=== PATIENT | male | born 1950 | race Caucasian/White ===

== ENCOUNTER 2020-12-22 10:52 | Emergency (ER) | payer OTHER, SELFPAY ==
--- NOTE | ~2020-12-22 | NM_ITS ---
EXAMINATION: NM LUNG IMAGE PERFUSION CLINICAL INDICATION: Shortness of breath. Elevated d-dimer. Question PE. Positive for COVID 19 COMPARISON: Chest x-ray 12/22/2020 PROCEDURE: Ventilation images were not obtained because the patient is COVID positive. Following the intravenous administration of 4.0 millicuries technetium 99m MAA, images of the chest were again obtained in multiple projections using a gamma scintiphoto camera. PERFUSION IMAGES: There is a small perfusion defect of the superior segment of the right lower lobe. Otherwise homogeneous perfusion. NM/NM pul perfusion IMPRESSION: Low probability of pulmonary embolism.
--- NOTE | ~2020-12-22 | CT_ITS ---
CT head/brain wo con CLINICAL INFORMATION: Reason for Exam pt c dizziness, cough, sob abd pain c gi bleed COMPARISON: No prior CT scan available for comparison. TECHNIQUE: Department standard protocol. This CT examination was performed using dose optimization techniques as appropriate, variously including the following: *Automated exposure control *Adjustment of mA and/or kV according to patient size (this includes techniques or standardized protocols for targeted exams where dose is matched to indication/reason for exam; i.e. extremities or head) *Use of iterative reconstruction technique DLP: 791 mGy-cm FINDINGS: CEREBRAL HEMISPHERES: There is no evidence of intra-axial or extra-axial mass, hemorrhage or acute infarct. BRAIN PARENCHYMA: Normal krishnamurthy-white matter differentiation. SUBDURAL SPACE: No bleed. BASAL GANGLIA AND PINEAL GLAND: Unremarkable VENTRICLES: Symmetric and normal in size. CEREBELLUM AND BRAINSTEM: No space-occupying mass, hemorrhage or acute infarct. CEREBELLOPONTINE ANGLES: No lesion found. ORBITS: No intraorbital mass. VESSELS: Unremarkable SKULL BASE: Unremarkable INCLUDED SINUSES AT SKULL BASE: There is retention cyst or fluid in the right maxillary sinus. SKULL AND SKIN: No fracture or bone lesion found. CT/CT head/brain wo con IMPRESSION: No CT evidence of intracranial space-occupying mass, bleed or infarct. Likely a retention cyst right maxillary sinus.
--- NOTE | ~2020-12-22 | XR_ITS ---
EXAMINATION: XR CHEST CLINICAL INFORMATION: Shortness of breath, COVID positive. COMPARISON: None TECHNIQUE: Frontal view of the chest was obtained. FINDINGS: No significant abnormality is noted involving the heart, lungs, mediastinum, bony thorax or soft tissues. XR/XR chest 1V IMPRESSION: No acute cardiopulmonary process.
--- NOTE | ~2020-12-22 | CT_ITS ---
EXAMINATION: CT ABDOMEN AND PELVIS WITHOUT CONTRAST CLINICAL INFORMATION: Left lower quadrant abdominal pain with bloody stools COMPARISON: CT of the abdomen 01/17/2018 ultrasound of the kidneys 08/01/2018 TECHNIQUE: Multidetector volumetric imaging was performed from the superior aspect of the liver through the pubic symphysis. Sagittal and coronal reformatted images were obtained on the technologist's workstation. This CT examination was performed using dose optimization techniques as appropriate, variously including the following: *Automated exposure control *Adjustment of mA and/or kV according to patient size (this includes techniques or standardized protocols for targeted exams where dose is matched to indication/reason for exam; i.e. extremities or head) *Use of iterative reconstruction technique DLP: 1388 mGy-cm FINDINGS: LUNG BASES: There are minimal scattered groundglass opacities in the right lower lobe. LIVER, GALLBLADDER, AND BILIARY TREE: The liver is normal in size, shape, and attenuation. No focal hepatic lesion or biliary ductal dilatation is present. The gallbladder is unremarkable with no evidence of radiopaque gallstones, gallbladder wall thickening, or obvious pericholecystic inflammatory changes. PANCREAS: There are chunky calcifications in the pancreatic head and smaller calcifications in the body and tail, likely sequela from chronic pancreatitis. SPLEEN: Unremarkable. ADRENAL GLANDS: Unremarkable. KIDNEYS AND URETERS: The kidneys are lobulated. There are several exophytic low-density lesions, likely charter representative of cysts. The largest on the right measures 5.5 cm. The largest on the left measures 3.8 cm. No hydronephrosis. No renal calculi. BLADDER: Unremarkable. GASTROINTESTINAL TRACT: The stomach and small bowel are not dilated. There is diverticulosis of the descending and sigmoid colon without evidence of diverticulitis. There is liquid stool within the colon with internal air-fluid levels. No focal area of increased density to suggest an area of active bleeding, however evaluation is limited due to lack of IV contrast. Normal appendix. No pericolonic inflammatory changes. ABDOMINAL WALL: No significant hernia is appreciated. LYMPH NODES: Normal. VASCULAR: Normal caliber of the abdominal aorta. Scattered atheromatous calcifications. PELVIC VISCERA: Mild prominence of the prostate gland with mass effect at the bladder base. OSSEOUS STRUCTURES: No acute osseous or suspicious abnormality. Multilevel degenerative changes of the lumbar spine. CT/CT abdomen pelvis wo con IMPRESSION: Diverticulosis of the descending and sigmoid colon without evidence of diverticulitis. Liquid stool within the colon. No pericolonic inflammatory change. Large bilateral renal cysts, overall similar in appearance. Calcifications within the pancreas, likely charter representative of sequela from chronic pancreatitis.
[2020-12-22 11:02] VITALS: BP 92/71; PULSE 133; RESP 20; TEMP 36.7; O2SAT 96; BMI 28.9
--- NOTE | 2020-12-22 11:14 | ECG_ITS ---
Test Reason : DIZZINESS Blood Pressure : / mmHG Vent. Rate : 091 BPM Atrial Rate : 046 BPM P-R Int : 000 ms QRS Dur : 074 ms QT Int : 356 ms P-R-T Axes : 000 -20 -09 degrees QTc Int : 437 ms Atrial fibrillation Abnormal ECG When compared with ECG of 07-OCT-2014 14:41, Atrial fibrillation has replaced Sinus rhythm Nonspecific T wave abnormality, worse in Inferior leads Nonspecific T wave abnormality now evident in Lateral leads Referred By: Madelaine Thomson Electronically Signed By:ODESSA DAVIS
--- NOTE | 2020-12-22 11:32 | ED.GENADULT ---
HPI - General Adult General Chief complaint: General Medical Stated complaint: ABD PAIN SORE THROAT Time Seen by Provider: 12/22/20 11:13 Source: patient Mode of arrival: ambulatory Limitations: no limitations Related Data Allergies Allergy/AdvReac Type Severity Reaction Status Date / Time aspirin [ASA] Allergy Severe CANNOT USE Unverified 08/01/20 18:48 DUE TO CROHNS Penicillins [PENICILLINS] Allergy Intermediate VOMITING Unverified 08/01/20 18:48 [facility] Past Medical History Medical History (Updated 12/22/20 @ 11:31 by PHILLIP Taveras) CKD (chronic kidney disease) Colitis Diabetes Physical Exam Vital Signs: Vital Signs: Last Vital Signs Temp 98.1 F 12/22/20 11:02 Pulse 133 H 12/22/20 11:02 Resp 20 12/22/20 11:02 BP 92/71 12/22/20 11:02 Pulse Ox 96 12/22/20 11:02 Body Mass Index 28.9
--- NOTE | 2020-12-22 11:39 | ED.ABDPAIN ---
HPI - Abdominal Pain General Chief Complaint: General Medical <PHILLIP Taveras Last Filed: 12/22/20 18:49> Stated Complaint: ABD PAIN SORE THROAT <PHILLIP Taveras Last Filed: 12/22/20 18:49> Time Seen by Provider: 12/22/20 11:13 <PHILLIP Taveras Last Filed: 12/22/20 18:49> Source: patient <PHILLIP Taveras Last Filed: 12/22/20 18:49> Mode of arrival: ambulatory <PHILLIP Taveras Last Filed: 12/22/20 18:49> Limitations: no limitations <PHILLIP Taveras Last Filed: 12/22/20 18:49> History of Present Illness HPI narrative: 70yoM c PMHx c c/o CAD, DM, HTN, HLD, CKD, Anemia, BPH and sleep apnea presenting to the ED with multiple complaints which include chills, body aches, dizziness when he stands up, dry cough, shortness of breath, left lower quadrant abdominal pain, dark stools which progressed into bright red stools which started a week ago although worse since last night. Reports that he had a telehealth call with his PCP and told him a couple of his symptoms and he was placed on omeprazole, Flagyl and Cipro and initially he was improving until last night. Denies any headaches, changes in vision, nausea/vomiting, jaw pain, paresthesias, dyspnea on exertion, orthopnea, chest pain, back pain, constipation, diarrhea or any other symptoms complaints or concerns at this time. Patient denies being on any blood thinners. <PHILLIP Taveras Last Filed: 12/22/20 18:49> MD elicited complaint: abdominal pain <PHILLIP Taveras Last Filed: 12/22/20 18:49> Onset (ago): day(s) (One week worse since last night) <PHILLIP Taveras Last Filed: 12/22/20 18:49> Pain Consistency: constant <PHILLIP Taveras Last Filed: 12/22/20 18:49> Location: [facility] <PHILLIP Taveras Last Filed: 12/22/20 18:49> Severity: moderate <PHILLIP Taveras Last Filed: 12/22/20 18:49> Quality: cramping <PHILLIP Taveras Last Filed: 12/22/20 18:49> Radiation: none <PHILLIP Taveras Last Filed: 12/22/20 18:49> Migration to: no migration <PHILLIP Taveras Last Filed: 12/22/20 18:49> Exacerbating factors: nothing <PHILLIP Taveras Last Filed: 12/22/20 18:49> Relieving factors: nothing <PHILLIP Taveras Last Filed: 12/22/20 18:49> Associated symptoms: chills, hematochezia and melena <PHILLIP Taveras Last Filed: 12/22/20 18:49> Related Data Home Medications: Home Medications Medication Instructions Recorded Confirmed amlodipine tab PO 12/22/20 azathioprine 3 tab PO DAILY 12/22/20 12/22/20 dulaglutide [Trulicity] 1 mg SUBCUT QWEEK 12/22/20 12/22/20 gabapentin 1 cap PO BEDTIME 12/22/20 12/22/20 hydrochlorothiazide 1 tab PO DAILY 12/22/20 12/22/20 insulin glargine [Basaglar KwikPen SUBCUT 12/22/20 U-100 Insulin] lisinopril 1 tab PO DAILY 12/22/20 12/22/20 omeprazole cap PO 12/22/20 Previous Rx's Medication Instructions Recorded apixaban [Eliquis] 2.5 mg PO BID #60 tab 12/23/20 dexamethasone [Decadron] 6 mg PO DAILY #7 tab 12/23/20 <PHILLIP Taveras Last Filed: 12/22/20 18:49> Allergies/Adverse Reactions: Allergies Allergy/AdvReac Type Severity Reaction Status Date / Time aspirin [ASA] Allergy Severe CANNOT USE Unverified 08/01/20 18:48 DUE TO CROHNS Penicillins [PENICILLINS] Allergy Intermediate VOMITING Unverified 08/01/20 18:48 <PHILLIP Taveras Last Filed: 12/22/20 18:49> Review of Systems Review of Systems Constitutional : + Chills, + Malaise, + Fatigue, No Night Sweats, No Fever ENT/Mouth : + Nasal congestion/sinus pain/rhinorrhea, No Ear Pain, No sore throat Eyes: No Eye Pain, No Swelling, No Redness, No Foreign Body, No Discharge, No Vision Changes Cardiovascular : + SOB, No Chest Pain, No Dyspnea on Exertion, No Orthopnea, No Palpitations Respiratory : + Cough, No Sputum, No Wheezing, No Dyspnea Gastrointestinal : + Abdominal pain, + Hematochezia, + Melena, No Nausea, No Vomiting, No Diarrhea, No Constipation Genitourinary : No Dysuria, No Urinary Frequency, No Urinary Incontinence, No Urgency, No Flank Pain Musculoskeletal : + Myalgias, No joint pain Skin : No lacerations Neuro : + Dizziness, No Focal weakness, No Numbness, No Paresthesias, No Loss of Consciousness, No Headache <PHILLIP Taveras - Last Filed: 12/22/20 18:49> Yes all other systems are reviewed and are negative <PHILLIP Taveras - Last Filed: 12/22/20 18:49> Physical Exam Vital Signs: Vital Signs: Last Vital Signs Temp 97.9 F 12/22/20 23:38 Pulse 71 12/22/20 23:38 Resp 16 12/22/20 23:38 BP 136/65 12/22/20 23:38 Pulse Ox 100 12/22/20 23:38 Body Mass Index 28.9 Vital signs have been reviewed as normal and appeared to be correct. Blood pressure hypertensive. Heart rate tachycardic. Respiration rate normal. Temperature normal. Oxygen saturation normal. <PHILLIP Taveras - Last Filed: 12/22/20 18:49> Vital Signs: Last Vital Signs Temp 97.9 F 12/22/20 23:38 Pulse 71 12/22/20 23:38 Resp 16 12/22/20 23:38 BP 136/65 12/22/20 23:38 Pulse Ox 100 12/22/20 23:38 Body Mass Index 28.9 <Jose Antonio Jade MD - Last Filed: 12/23/20 01:54> Appearance: Alert. Oriented X3. No acute distress. Head: Normal external exam. Normocephalic. Atraumatic. Able to rotate head bilaterally. Eyes: PERRLA. EOMI. No nystagmus noted. Conjunctiva and sclera normal. Eyelids normal. Corneal reflex normal. ENT: EAC normal. TM's Normal. Hearing normal. Pharynx normal. Uvula midline. tongue midline. Moist mucous membranes. No trismus noted. No drooling noted. No muffled voice noted. No nystagmus noted. Neck: Normal inspection. Neck supple. FROM. No adenopathy. Trachea midline. Thyroid Normal. No meningeal signs. No neck mass noted. CVS: Normal heart rate and rhythm. Heart sound normal. No murmurs noted. Pulses normal throughout. Respiratory: No respiratory distress. Painless inspiration. Breath sounds normal. No wheezes/rales/rhonchi noted. Chest nontender. No accessory muscle usage noted or decreased air movement noted. Abdomen: Soft and tenderness to palpation to left lower quadrant with guarding. Nondistended. No rigidity. Bowel sounds normal in all 4 quadrants. No distention noted. No organomegaly noted. No visible injury noted. No rebound tenderness. Negative Rovsing sign. Negative obturator's sign. Negative psoas sign. Negative Cummings sign. Back: No CVA tenderness. Full range of motion noted. Skin: Skin warm and dry. Normal skin color. Normal skin turgor. No rashes/lesions/lacerations noted. Extremities: No lower extremity edema. Extremities exhibit normal range of motion. Extremities nontender. Able to shrug shoulders bilaterally and keep up against resistance. Neuro: Oriented X 3. No motor deficit. No sensory deficit. Reflexes normal. Moving all extremities. No focal motor deficits. Cranial nerves II-XI intact bilaterally. Facial strength normal. Normal cognition. Speech normal. Gait normal. Strength 5/5 throughout. No pronator drift. No tremor noted. No fasciculations noted. No rigidity noted. Muscle tone normal throughout. No asterixis noted. [id number] test normal. Hand drop from overhead Misses face. NIHSS score 0. <PHILLIP Taveras - Last Filed: 12/22/20 18:49> Course Course Course Narrative: 11:15pm 70yoM c PMHx c c/o CAD, DM, HTN, HLD, CKD, Anemia, BPH and sleep apnea presenting to the ED with multiple complaints which include chills, body aches, dizziness when he stands up, dry cough, shortness of breath, left lower quadrant abdominal pain, dark stools which progressed into bright red stools which started a week ago although worse since last night. - on exam patient is alert and oriented x3. Not in any acute distress. Patient is noted to be hypertensive and tachycardic all other vitals are within normal limits. No focal neuro deficits noted. NIH SS score 0. Patient with tenderness to palpation to left lower quadrant with guarding. - Concern for CVA vs ACS vs COVID-19 vs PNA vs diverticulitis vs GI Bleed vs orthostatic vs electrolyte abnormality Plan: Labs, CXR, EKG, CT scan of brain, CT scan of chest for PE, CT scan of abd/pelvis c IV contrast, UA, SARS/FLU/RSV swab, blood cultures, lactic acid. Provide a L of IV fluids then re-evaluate. <PHILLIP Taveras - Last Filed: 12/22/20 18:49> Reevaluation(s) Reevaluation #1: - patient with mild anemia unsure if this is the patient's baseline H&H 10.9/31.8 - D-dimer 317 - sodium 133 - BUN/creatinine 60/3.45 - random glucose 236 - ferritin 86 - CRP 2.87 - troponin 18.0 - patient positive for COVID - UA within normal limits no evidence of UTI - stool occult negative - awaiting CT scan of brain, CT scan of abdomen and pelvis and due to patient's increased renal function unable to get a CTA of chest for PE therefore a V/Q scan will be ordered at this time for further evaluation of possible PE, repeat troponin at this time. - will re-evaluate after CT scan of brain/CT scan of abdomen and pelvis/V/Q scan of chest for PE and repeat troponin - attempting to get records from [facility] for the patient's baseline creatinine. <PHILLIP Taveras - Last Filed: 12/22/20 18:49> Patient feeling much better now ambulating with pulse ox of 100% heart rate 83 beats per minute normal sinus rhythm at this time. Patient discharged patient home on Eliquis advised to follow-up with graphics edit technician <Jose Antonio Jade MD - Last Filed: 12/23/20 01:54> Time: 14:41 <PHILLIP Taveras - Last Filed: 12/22/20 18:49> 01:54 <Jose Antonio Jade MD - Last Filed: 12/23/20 01:54> Reevaluation #2: - CXR WNL no acute processes noted. - CT scan of brain WNL no acute processes noted. - CT scan of abdomen and pelvis revealed diverticulosis no evidence of acute diverticulitis, large bilateral renal cysts, calcifications within the pancreas which revealed chronic pancreatitis otherwise no other acute processes noted. - awaiting repeat troponin and V/Q scan and records from [facility] for the patient's baseline creatinine/BUN <PHILLIP Taveras - Last Filed: 12/22/20 18:49> Time: 15:20 <PHILLIP Taveras - Last Filed: 12/22/20 18:49> Reevaluation #3: - [facility] never sent us any records therefore I got records from [facility] and patient was actually in the outpatient office on 12/17/2020 in the patient's H&H was 11.2/33.6 and the patient's BUN and creatinine was 46/3.6 therefore similar compared to 01/05 - awaiting repeat troponin and V/Q scan. <PHILLIP Taveras - Last Filed: 12/22/20 18:49> Time: 15:55 <PHILLIP Taveras - Last Filed: 12/22/20 18:49> Additional Reevaluation(s): 17:40pm - I was just given the patient's EKG at this time although it was ordered at 11:30 when the patient was seen by me and it appears that the patient is in atrial fibrillation with ventricular rate of 91 no acute ischemic changes noted. I reviewed patient's [facility] records and he had EKG on 04/10/2020 which was sinus rhythm therefore this is new onset of atrial fibrillation. - patient's [id number] is 2 - V/Q scan reports low probability for pulmonary embolism - will plan to admit and possibly start the patient on anticoagulation. Patient understands agrees the plan. Dr. Stafford agrees to admit patient at this time. Patient understands agrees the plan. <PHILLIP Taveras - Last Filed: 12/22/20 18:49> MDM - Abdominal Pain Medical Records Attestation: I reviewed the patient's medical records. <PHILLIP Taveras - Last Filed: 12/22/20 18:49> Lab Data Attestation: I reviewed the patient's lab results. <PHILLIP Taveras - Last Filed: 12/22/20 18:49> Result diagrams: : 12/22/20 11:39 12/22/20 11:39 <PHILLIP Taveras - Last Filed: 12/22/20 18:49> Labs: Lab Results 12/22/20 12/22/20 12/22/20 Range/Units 11:39 11:39 11:39 WBC 4.8 (4.8-10.8) X10*3/uL RBC 3.40 L (4.60-5.80) X10*6/uL Hgb 10.9 L (14.0-18.0) g/dl Hct 31.8 L (42-52) % MCV 93.5 (80-98) fL MCH 32.1 (27.0-33.0) pg MCHC 34.3 (31.0-36.0) g/dl RDW 14.1 (11.0-16.0) % Plt Count 244 (160-400) X10*3/uL MPV 10.8 (9.4-12.4) fL Immature Gran % (Auto) 0.4 (0.0-0.4) % Neut % (Auto) 77.8 H (45-73) % Lymph % (Auto) 10.5 L (20-40) % Dixon % (Auto) 8.8 (2-11) % Eos % (Auto) 2.3 (0-4) % Baso % (Auto) 0.2 (0-2) % Lymph # (Auto) 0.5 L (1.2-4.9) X10*3/uL Dixon # (Auto) 0.4 (0.1-1.2) X10*3/uL Eos # (Auto) 0.1 (0.0-0.4) X10*3/uL Baso # (Auto) 0.0 (0.0-0.2) X10*3/uL Abs Immat Gran (auto) 0.02 (0.00-0.03) X10*3/uL Absolute Neuts (auto) 3.7 (2.0-8.3) X10*3/uL Absolute Nucleated RBC 0.000 (0.0-0.012) X10*3/uL Nucleated RBC % (auto) 0.0 (0.0-0.2) /100WBC Smear Tech's Comments VERIFIED PT (10.8-13.0) SEC INR (0.9-1.1) APTT (24.1-38.0) SEC D-Dimer NG/ML Sodium 133 L (135-145) mmol/L Potassium 4.3 (3.3-5.1) mmol/L Chloride 101 (96-108) mmol/L Carbon Dioxide 19 L (22-29) mmol/L Anion Gap 17 (12-20) BUN 60 H (9-16) mg/dL Creatinine 3.45 H (0.5-1.4) mg/dL Estim Creat Clear Calc 23.0 Estimated GFR 18 POC Glucose (60-115) mg/dL Random Glucose 236 H (60-115) mg/dL Lactic Acid 1.3 (0.5-2.0) mmol/L Calcium 8.5 (8.4-10.2) mg/dL Magnesium 2.2 (1.6-2.6) mg/dL Ferritin (20-250) ng/mL Total Bilirubin 0.3 (0.0-1.0) mg/dL Direct Bilirubin 0.2 (0.0-0.5) mg/dL AST 23 (5-37) U/L ALT 18 (0-40) U/L Alkaline Phosphatase 81 (39-117) U/L Lactate Dehydrogenase 179 (118-273) U/L Troponin I High Sens (<3.5-35.0) ng/L C-Reactive Protein (< or = 0.50) mg/dL B-Natriuretic Peptide (<100) pg/mL Total Protein 7.9 (6.5-8.0) g/dL Albumin 4.5 (3.5-5.0) g/dL Lipase (8-78) U/L Procalcitonin ng/mL Urine Color Urine Appearance Urine pH (5.0-8.0) Ur Specific [place] (1.005-1.025) Urine Protein (NEG-TRACE) MG/DL Urine Glucose (UA) (NEG) MG/DL Urine Ketones (NEG) MG/DL Urine Blood (NEG) Urine Nitrite (NEG) Ur Leukocyte Esterase (NEG) Urine RBC (0) /HPF Urine WBC (0-4) /HPF Ur Squamous Epith Cells /LPF Urine Bacteria /LPF Stool Occult Blood (NEG) Coronavirus (PCR) (Negative) Influenza Type A (PCR) (Negative) Influenza Type B (PCR) (Negative) RSV RNA Qual (PCR) (Negative) 12/22/20 12/22/20 12/22/20 Range/Units 11:39 11:39 11:39 WBC (4.8-10.8) X10*3/uL RBC (4.60-5.80) X10*6/uL Hgb (14.0-18.0) g/dl Hct (42-52) % MCV (80-98) fL MCH (27.0-33.0) pg MCHC (31.0-36.0) g/dl RDW (11.0-16.0) % Plt Count (160-400) X10*3/uL MPV (9.4-12.4) fL Immature Gran % (Auto) (0.0-0.4) % Neut % (Auto) (45-73) % Lymph % (Auto) (20-40) % Dixon % (Auto) (2-11) % Eos % (Auto) (0-4) % Baso % (Auto) (0-2) % Lymph # (Auto) (1.2-4.9) X10*3/uL Dixon # (Auto) (0.1-1.2) X10*3/uL Eos # (Auto) (0.0-0.4) X10*3/uL Baso # (Auto) (0.0-0.2) X10*3/uL Abs Immat Gran (auto) (0.00-0.03) X10*3/uL Absolute Neuts (auto) (2.0-8.3) X10*3/uL Absolute Nucleated RBC (0.0-0.012) X10*3/uL Nucleated RBC % (auto) (0.0-0.2) /100WBC Smear Tech's Comments PT (10.8-13.0) SEC INR (0.9-1.1) APTT (24.1-38.0) SEC D-Dimer NG/ML Sodium (135-145) mmol/L Potassium (3.3-5.1) mmol/L Chloride (96-108) mmol/L Carbon Dioxide (22-29) mmol/L Anion Gap (12-20) BUN (9-16) mg/dL Creatinine (0.5-1.4) mg/dL Estim Creat Clear Calc Estimated GFR POC Glucose (60-115) mg/dL Random Glucose (60-115) mg/dL Lactic Acid (0.5-2.0) mmol/L Calcium (8.4-10.2) mg/dL Magnesium (1.6-2.6) mg/dL Ferritin 886 H (20-250) ng/mL Total Bilirubin (0.0-1.0) mg/dL Direct Bilirubin (0.0-0.5) mg/dL AST (5-37) U/L ALT (0-40) U/L Alkaline Phosphatase (39-117) U/L Lactate Dehydrogenase (118-273) U/L Troponin I High Sens 18.0 (<3.5-35.0) ng/L C-Reactive Protein 2.87 H (< or = 0.50) mg/dL B-Natriuretic Peptide 19 (<100) pg/mL Total Protein (6.5-8.0) g/dL Albumin (3.5-5.0) g/dL Lipase (8-78) U/L Procalcitonin 0.34 ng/mL Urine Color Urine Appearance Urine pH (5.0-8.0) Ur Specific [place] (1.005-1.025) Urine Protein (NEG-TRACE) MG/DL Urine Glucose (UA) (NEG) MG/DL Urine Ketones (NEG) MG/DL Urine Blood (NEG) Urine Nitrite (NEG) Ur Leukocyte Esterase (NEG) Urine RBC (0) /HPF Urine WBC (0-4) /HPF Ur Squamous Epith Cells /LPF Urine Bacteria /LPF Stool Occult Blood (NEG) Coronavirus (PCR) (Negative) Influenza Type A (PCR) (Negative) Influenza Type B (PCR) (Negative) RSV RNA Qual (PCR) (Negative) 12/22/20 12/22/20 12/22/20 Range/Units 11:39 13:41 13:41 WBC (4.8-10.8) X10*3/uL RBC (4.60-5.80) X10*6/uL Hgb (14.0-18.0) g/dl Hct (42-52) % MCV (80-98) fL MCH (27.0-33.0) pg MCHC (31.0-36.0) g/dl RDW (11.0-16.0) % Plt Count (160-400) X10*3/uL MPV (9.4-12.4) fL Immature Gran % (Auto) (0.0-0.4) % Neut % (Auto) (45-73) % Lymph % (Auto) (20-40) % Dixon % (Auto) (2-11) % Eos % (Auto) (0-4) % Baso % (Auto) (0-2) % Lymph # (Auto) (1.2-4.9) X10*3/uL Dixon # (Auto) (0.1-1.2) X10*3/uL Eos # (Auto) (0.0-0.4) X10*3/uL Baso # (Auto) (0.0-0.2) X10*3/uL Abs Immat Gran (auto) (0.00-0.03) X10*3/uL Absolute Neuts (auto) (2.0-8.3) X10*3/uL Absolute Nucleated RBC (0.0-0.012) X10*3/uL Nucleated RBC % (auto) (0.0-0.2) /100WBC Smear Tech's Comments PT (10.8-13.0) SEC INR (0.9-1.1) APTT (24.1-38.0) SEC D-Dimer NG/ML Sodium (135-145) mmol/L Potassium (3.3-5.1) mmol/L Chloride (96-108) mmol/L Carbon Dioxide (22-29) mmol/L Anion Gap (12-20) BUN (9-16) mg/dL Creatinine (0.5-1.4) mg/dL Estim Creat Clear Calc Estimated GFR POC Glucose (60-115) mg/dL Random Glucose (60-115) mg/dL Lactic Acid (0.5-2.0) mmol/L Calcium (8.4-10.2) mg/dL Magnesium (1.6-2.6) mg/dL Ferritin (20-250) ng/mL Total Bilirubin (0.0-1.0) mg/dL Direct Bilirubin (0.0-0.5) mg/dL AST (5-37) U/L ALT (0-40) U/L Alkaline Phosphatase (39-117) U/L Lactate Dehydrogenase (118-273) U/L Troponin I High Sens (<3.5-35.0) ng/L C-Reactive Protein (< or = 0.50) mg/dL B-Natriuretic Peptide (<100) pg/mL Total Protein (6.5-8.0) g/dL Albumin (3.5-5.0) g/dL Lipase 58 (8-78) U/L Procalcitonin ng/mL Urine Color YELLOW Urine Appearance CLEAR Urine pH 6.0 (5.0-8.0) Ur Specific [place] 1.025 (1.005-1.025) Urine Protein 2+ H (NEG-TRACE) MG/DL Urine Glucose (UA) NEG (NEG) MG/DL Urine Ketones 5 (NEG) MG/DL Urine Blood 1+ H (NEG) Urine Nitrite NEG (NEG) Ur Leukocyte Esterase NEG (NEG) Urine RBC 1-4 (0) /HPF Urine WBC 0-2 (0-4) /HPF Ur Squamous Epith Cells NONE /LPF Urine Bacteria NONE /LPF Stool Occult Blood NEG (NEG) Coronavirus (PCR) (Negative) Influenza Type A (PCR) (Negative) Influenza Type B (PCR) (Negative) RSV RNA Qual (PCR) (Negative) 12/22/20 12/22/20 12/22/20 Range/Units 14:17 16:03 17:31 WBC (4.8-10.8) X10*3/uL RBC (4.60-5.80) X10*6/uL Hgb (14.0-18.0) g/dl Hct (42-52) % MCV (80-98) fL MCH (27.0-33.0) pg MCHC (31.0-36.0) g/dl RDW (11.0-16.0) % Plt Count (160-400) X10*3/uL MPV (9.4-12.4) fL Immature Gran % (Auto) (0.0-0.4) % Neut % (Auto) (45-73) % Lymph % (Auto) (20-40) % Dixon % (Auto) (2-11) % Eos % (Auto) (0-4) % Baso % (Auto) (0-2) % Lymph # (Auto) (1.2-4.9) X10*3/uL Dixon # (Auto) (0.1-1.2) X10*3/uL Eos # (Auto) (0.0-0.4) X10*3/uL Baso # (Auto) (0.0-0.2) X10*3/uL Abs Immat Gran (auto) (0.00-0.03) X10*3/uL Absolute Neuts (auto) (2.0-8.3) X10*3/uL Absolute Nucleated RBC (0.0-0.012) X10*3/uL Nucleated RBC % (auto) (0.0-0.2) /100WBC Smear Tech's Comments PT 13.9 H (10.8-13.0) SEC INR 1.2 H (0.9-1.1) APTT 35.1 (24.1-38.0) SEC D-Dimer 317 NG/ML Sodium (135-145) mmol/L Potassium (3.3-5.1) mmol/L Chloride (96-108) mmol/L Carbon Dioxide (22-29) mmol/L Anion Gap (12-20) BUN (9-16) mg/dL Creatinine (0.5-1.4) mg/dL Estim Creat Clear Calc Estimated GFR POC Glucose 173 H (60-115) mg/dL Random Glucose (60-115) mg/dL Lactic Acid (0.5-2.0) mmol/L Calcium (8.4-10.2) mg/dL Magnesium (1.6-2.6) mg/dL Ferritin (20-250) ng/mL Total Bilirubin (0.0-1.0) mg/dL Direct Bilirubin (0.0-0.5) mg/dL AST (5-37) U/L ALT (0-40) U/L Alkaline Phosphatase (39-117) U/L Lactate Dehydrogenase (118-273) U/L Troponin I High Sens 23.3 (<3.5-35.0) ng/L C-Reactive Protein (< or = 0.50) mg/dL B-Natriuretic Peptide (<100) pg/mL Total Protein (6.5-8.0) g/dL Albumin (3.5-5.0) g/dL Lipase (8-78) U/L Procalcitonin ng/mL Urine Color Urine Appearance Urine pH (5.0-8.0) Ur Specific [place] (1.005-1.025) Urine Protein (NEG-TRACE) MG/DL Urine Glucose (UA) (NEG) MG/DL Urine Ketones (NEG) MG/DL Urine Blood (NEG) Urine Nitrite (NEG) Ur Leukocyte Esterase (NEG) Urine RBC (0) /HPF Urine WBC (0-4) /HPF Ur Squamous Epith Cells /LPF Urine Bacteria /LPF Stool Occult Blood (NEG) Coronavirus (PCR) (Negative) Influenza Type A (PCR) (Negative) Influenza Type B (PCR) (Negative) RSV RNA Qual (PCR) (Negative) 12/22/20 Range/Units Unknown WBC (4.8-10.8) X10*3/uL RBC (4.60-5.80) X10*6/uL Hgb (14.0-18.0) g/dl Hct (42-52) % MCV (80-98) fL MCH (27.0-33.0) pg MCHC (31.0-36.0) g/dl RDW (11.0-16.0) % Plt Count (160-400) X10*3/uL MPV (9.4-12.4) fL Immature Gran % (Auto) (0.0-0.4) % Neut % (Auto) (45-73) % Lymph % (Auto) (20-40) % Dixon % (Auto) (2-11) % Eos % (Auto) (0-4) % Baso % (Auto) (0-2) % Lymph # (Auto) (1.2-4.9) X10*3/uL Dixon # (Auto) (0.1-1.2) X10*3/uL Eos # (Auto) (0.0-0.4) X10*3/uL Baso # (Auto) (0.0-0.2) X10*3/uL Abs Immat Gran (auto) (0.00-0.03) X10*3/uL Absolute Neuts (auto) (2.0-8.3) X10*3/uL Absolute Nucleated RBC (0.0-0.012) X10*3/uL Nucleated RBC % (auto) (0.0-0.2) /100WBC Smear Tech's Comments PT (10.8-13.0) SEC INR (0.9-1.1) APTT (24.1-38.0) SEC D-Dimer NG/ML Sodium (135-145) mmol/L Potassium (3.3-5.1) mmol/L Chloride (96-108) mmol/L Carbon Dioxide (22-29) mmol/L Anion Gap (12-20) BUN (9-16) mg/dL Creatinine (0.5-1.4) mg/dL Estim Creat Clear Calc Estimated GFR POC Glucose (60-115) mg/dL Random Glucose (60-115) mg/dL Lactic Acid (0.5-2.0) mmol/L Calcium (8.4-10.2) mg/dL Magnesium (1.6-2.6) mg/dL Ferritin (20-250) ng/mL Total Bilirubin (0.0-1.0) mg/dL Direct Bilirubin (0.0-0.5) mg/dL AST (5-37) U/L ALT (0-40) U/L Alkaline Phosphatase (39-117) U/L Lactate Dehydrogenase (118-273) U/L Troponin I High Sens (<3.5-35.0) ng/L C-Reactive Protein (< or = 0.50) mg/dL B-Natriuretic Peptide (<100) pg/mL Total Protein (6.5-8.0) g/dL Albumin (3.5-5.0) g/dL Lipase (8-78) U/L Procalcitonin ng/mL Urine Color Urine Appearance Urine pH (5.0-8.0) Ur Specific [place] (1.005-1.025) Urine Protein (NEG-TRACE) MG/DL Urine Glucose (UA) (NEG) MG/DL Urine Ketones (NEG) MG/DL Urine Blood (NEG) Urine Nitrite (NEG) Ur Leukocyte Esterase (NEG) Urine RBC (0) /HPF Urine WBC (0-4) /HPF Ur Squamous Epith Cells /LPF Urine Bacteria /LPF Stool Occult Blood (NEG) Coronavirus (PCR) POSITIVE A (Negative) Influenza Type A (PCR) NEGATIVE (Negative) Influenza Type B (PCR) NEGATIVE (Negative) RSV RNA Qual (PCR) NEGATIVE (Negative) <PHILLIP Taveras - Last Filed: 12/22/20 18:49> Lab Results 12/22/20 12/22/20 12/22/20 Range/Units 11:39 11:39 11:39 WBC 4.8 (4.8-10.8) X10*3/uL RBC 3.40 L (4.60-5.80) X10*6/uL Hgb 10.9 L (14.0-18.0) g/dl Hct 31.8 L (42-52) % MCV 93.5 (80-98) fL MCH 32.1 (27.0-33.0) pg MCHC 34.3 (31.0-36.0) g/dl RDW 14.1 (11.0-16.0) % Plt Count 244 (160-400) X10*3/uL MPV 10.8 (9.4-12.4) fL Immature Gran % (Auto) 0.4 (0.0-0.4) % Neut % (Auto) 77.8 H (45-73) % Lymph % (Auto) 10.5 L (20-40) % Dixon % (Auto) 8.8 (2-11) % Eos % (Auto) 2.3 (0-4) % Baso % (Auto) 0.2 (0-2) % Lymph # (Auto) 0.5 L (1.2-4.9) X10*3/uL Dixon # (Auto) 0.4 (0.1-1.2) X10*3/uL Eos # (Auto) 0.1 (0.0-0.4) X10*3/uL Baso # (Auto) 0.0 (0.0-0.2) X10*3/uL Abs Immat Gran (auto) 0.02 (0.00-0.03) X10*3/uL Absolute Neuts (auto) 3.7 (2.0-8.3) X10*3/uL Absolute Nucleated RBC 0.000 (0.0-0.012) X10*3/uL Nucleated RBC % (auto) 0.0 (0.0-0.2) /100WBC Smear Tech's Comments VERIFIED PT (10.8-13.0) SEC INR (0.9-1.1) APTT (24.1-38.0) SEC D-Dimer NG/ML Sodium 133 L (135-145) mmol/L Potassium 4.3 (3.3-5.1) mmol/L Chloride 101 (96-108) mmol/L Carbon Dioxide 19 L (22-29) mmol/L Anion Gap 17 (12-20) BUN 60 H (9-16) mg/dL Creatinine 3.45 H (0.5-1.4) mg/dL Estim Creat Clear Calc 23.0 Estimated GFR 18 POC Glucose (60-115) mg/dL Random Glucose 236 H (60-115) mg/dL Lactic Acid 1.3 (0.5-2.0) mmol/L Calcium 8.5 (8.4-10.2) mg/dL Magnesium 2.2 (1.6-2.6) mg/dL Ferritin (20-250) ng/mL Total Bilirubin 0.3 (0.0-1.0) mg/dL Direct Bilirubin 0.2 (0.0-0.5) mg/dL AST 23 (5-37) U/L ALT 18 (0-40) U/L Alkaline Phosphatase 81 (39-117) U/L Lactate Dehydrogenase 179 (118-273) U/L Troponin I High Sens (<3.5-35.0) ng/L C-Reactive Protein (< or = 0.50) mg/dL B-Natriuretic Peptide (<100) pg/mL Total Protein 7.9 (6.5-8.0) g/dL Albumin 4.5 (3.5-5.0) g/dL Lipase (8-78) U/L Procalcitonin ng/mL Urine Color Urine Appearance Urine pH (5.0-8.0) Ur Specific [place] (1.005-1.025) Urine Protein (NEG-TRACE) MG/DL Urine Glucose (UA) (NEG) MG/DL Urine Ketones (NEG) MG/DL Urine Blood (NEG) Urine Nitrite (NEG) Ur Leukocyte Esterase (NEG) Urine RBC (0) /HPF Urine WBC (0-4) /HPF Ur Squamous Epith Cells /LPF Urine Bacteria /LPF Stool Occult Blood (NEG) Coronavirus (PCR) (Negative) Influenza Type A (PCR) (Negative) Influenza Type B (PCR) (Negative) RSV RNA Qual (PCR) (Negative) 12/22/20 12/22/20 12/22/20 Range/Units 11:39 11:39 11:39 WBC (4.8-10.8) X10*3/uL RBC (4.60-5.80) X10*6/uL Hgb (14.0-18.0) g/dl Hct (42-52) % MCV (80-98) fL MCH (27.0-33.0) pg MCHC (31.0-36.0) g/dl RDW (11.0-16.0) % Plt Count (160-400) X10*3/uL MPV (9.4-12.4) fL Immature Gran % (Auto) (0.0-0.4) % Neut % (Auto) (45-73) % Lymph % (Auto) (20-40) % Dixon % (Auto) (2-11) % Eos % (Auto) (0-4) % Baso % (Auto) (0-2) % Lymph # (Auto) (1.2-4.9) X10*3/uL Dixon # (Auto) (0.1-1.2) X10*3/uL Eos # (Auto) (0.0-0.4) X10*3/uL Baso # (Auto) (0.0-0.2) X10*3/uL Abs Immat Gran (auto) (0.00-0.03) X10*3/uL Absolute Neuts (auto) (2.0-8.3) X10*3/uL Absolute Nucleated RBC (0.0-0.012) X10*3/uL Nucleated RBC % (auto) (0.0-0.2) /100WBC Smear Tech's Comments PT (10.8-13.0) SEC INR (0.9-1.1) APTT (24.1-38.0) SEC D-Dimer NG/ML Sodium (135-145) mmol/L Potassium (3.3-5.1) mmol/L Chloride (96-108) mmol/L Carbon Dioxide (22-29) mmol/L Anion Gap (12-20) BUN (9-16) mg/dL Creatinine (0.5-1.4) mg/dL Estim Creat Clear Calc Estimated GFR POC Glucose (60-115) mg/dL Random Glucose (60-115) mg/dL Lactic Acid (0.5-2.0) mmol/L Calcium (8.4-10.2) mg/dL Magnesium (1.6-2.6) mg/dL Ferritin 886 H (20-250) ng/mL Total Bilirubin (0.0-1.0) mg/dL Direct Bilirubin (0.0-0.5) mg/dL AST (5-37) U/L ALT (0-40) U/L Alkaline Phosphatase (39-117) U/L Lactate Dehydrogenase (118-273) U/L Troponin I High Sens 18.0 (<3.5-35.0) ng/L C-Reactive Protein 2.87 H (< or = 0.50) mg/dL B-Natriuretic Peptide 19 (<100) pg/mL Total Protein (6.5-8.0) g/dL Albumin (3.5-5.0) g/dL Lipase (8-78) U/L Procalcitonin 0.34 ng/mL Urine Color Urine Appearance Urine pH (5.0-8.0) Ur Specific Holland (1.005-1.025) Urine Protein (NEG-TRACE) MG/DL Urine Glucose (UA) (NEG) MG/DL Urine Ketones (NEG) MG/DL Urine Blood (NEG) Urine Nitrite (NEG) Ur Leukocyte Esterase (NEG) Urine RBC (0) /HPF Urine WBC (0-4) /HPF Ur Squamous Epith Cells /LPF Urine Bacteria /LPF Stool Occult Blood (NEG) Coronavirus (PCR) (Negative) Influenza Type A (PCR) (Negative) Influenza Type B (PCR) (Negative) RSV RNA Qual (PCR) (Negative) 12/22/20 12/22/20 12/22/20 Range/Units 11:39 13:41 13:41 WBC (4.8-10.8) X10*3/uL RBC (4.60-5.80) X10*6/uL Hgb (14.0-18.0) g/dl Hct (42-52) % MCV (80-98) fL MCH (27.0-33.0) pg MCHC (31.0-36.0) g/dl RDW (11.0-16.0) % Plt Count (160-400) X10*3/uL MPV (9.4-12.4) fL Immature Gran % (Auto) (0.0-0.4) % Neut % (Auto) (45-73) % Lymph % (Auto) (20-40) % Dixon % (Auto) (2-11) % Eos % (Auto) (0-4) % Baso % (Auto) (0-2) % Lymph # (Auto) (1.2-4.9) X10*3/uL Dixon # (Auto) (0.1-1.2) X10*3/uL Eos # (Auto) (0.0-0.4) X10*3/uL Baso # (Auto) (0.0-0.2) X10*3/uL Abs Immat Gran (auto) (0.00-0.03) X10*3/uL Absolute Neuts (auto) (2.0-8.3) X10*3/uL Absolute Nucleated RBC (0.0-0.012) X10*3/uL Nucleated RBC % (auto) (0.0-0.2) /100WBC Smear Tech's Comments PT (10.8-13.0) SEC INR (0.9-1.1) APTT (24.1-38.0) SEC D-Dimer NG/ML Sodium (135-145) mmol/L Potassium (3.3-5.1) mmol/L Chloride (96-108) mmol/L Carbon Dioxide (22-29) mmol/L Anion Gap (12-20) BUN (9-16) mg/dL Creatinine (0.5-1.4) mg/dL Estim Creat Clear Calc Estimated GFR POC Glucose (60-115) mg/dL Random Glucose (60-115) mg/dL Lactic Acid (0.5-2.0) mmol/L Calcium (8.4-10.2) mg/dL Magnesium (1.6-2.6) mg/dL Ferritin (20-250) ng/mL Total Bilirubin (0.0-1.0) mg/dL Direct Bilirubin (0.0-0.5) mg/dL AST (5-37) U/L ALT (0-40) U/L Alkaline Phosphatase (39-117) U/L Lactate Dehydrogenase (118-273) U/L Troponin I High Sens (<3.5-35.0) ng/L C-Reactive Protein (< or = 0.50) mg/dL B-Natriuretic Peptide (<100) pg/mL Total Protein (6.5-8.0) g/dL Albumin (3.5-5.0) g/dL Lipase 58 (8-78) U/L Procalcitonin ng/mL Urine Color YELLOW Urine Appearance CLEAR Urine pH 6.0 (5.0-8.0) Ur Specific [place] 1.025 (1.005-1.025) Urine Protein 2+ H (NEG-TRACE) MG/DL Urine Glucose (UA) NEG (NEG) MG/DL Urine Ketones 5 (NEG) MG/DL Urine Blood 1+ H (NEG) Urine Nitrite NEG (NEG) Ur Leukocyte Esterase NEG (NEG) Urine RBC 1-4 (0) /HPF Urine WBC 0-2 (0-4) /HPF Ur Squamous Epith Cells NONE /LPF Urine Bacteria NONE /LPF Stool Occult Blood NEG (NEG) Coronavirus (PCR) (Negative) Influenza Type A (PCR) (Negative) Influenza Type B (PCR) (Negative) RSV RNA Qual (PCR) (Negative) 12/22/20 12/22/20 12/22/20 Range/Units 14:17 16:03 17:31 WBC (4.8-10.8) X10*3/uL RBC (4.60-5.80) X10*6/uL Hgb (14.0-18.0) g/dl Hct (42-52) % MCV (80-98) fL MCH (27.0-33.0) pg MCHC (31.0-36.0) g/dl RDW (11.0-16.0) % Plt Count (160-400) X10*3/uL MPV (9.4-12.4) fL Immature Gran % (Auto) (0.0-0.4) % Neut % (Auto) (45-73) % Lymph % (Auto) (20-40) % Dixon % (Auto) (2-11) % Eos % (Auto) (0-4) % Baso % (Auto) (0-2) % Lymph # (Auto) (1.2-4.9) X10*3/uL Dixon # (Auto) (0.1-1.2) X10*3/uL Eos # (Auto) (0.0-0.4) X10*3/uL Baso # (Auto) (0.0-0.2) X10*3/uL Abs Immat Gran (auto) (0.00-0.03) X10*3/uL Absolute Neuts (auto) (2.0-8.3) X10*3/uL Absolute Nucleated RBC (0.0-0.012) X10*3/uL Nucleated RBC % (auto) (0.0-0.2) /100WBC Smear Tech's Comments PT 13.9 H (10.8-13.0) SEC INR 1.2 H (0.9-1.1) APTT 35.1 (24.1-38.0) SEC D-Dimer 317 NG/ML Sodium (135-145) mmol/L Potassium (3.3-5.1) mmol/L Chloride (96-108) mmol/L Carbon Dioxide (22-29) mmol/L Anion Gap (12-20) BUN (9-16) mg/dL Creatinine (0.5-1.4) mg/dL Estim Creat Clear Calc Estimated GFR POC Glucose 173 H (60-115) mg/dL Random Glucose (60-115) mg/dL Lactic Acid (0.5-2.0) mmol/L Calcium (8.4-10.2) mg/dL Magnesium (1.6-2.6) mg/dL Ferritin (20-250) ng/mL Total Bilirubin (0.0-1.0) mg/dL Direct Bilirubin (0.0-0.5) mg/dL AST (5-37) U/L ALT (0-40) U/L Alkaline Phosphatase (39-117) U/L Lactate Dehydrogenase (118-273) U/L Troponin I High Sens 23.3 (<3.5-35.0) ng/L C-Reactive Protein (< or = 0.50) mg/dL B-Natriuretic Peptide (<100) pg/mL Total Protein (6.5-8.0) g/dL Albumin (3.5-5.0) g/dL Lipase (8-78) U/L Procalcitonin ng/mL Urine Color Urine Appearance Urine pH (5.0-8.0) Ur Specific [place] (1.005-1.025) Urine Protein (NEG-TRACE) MG/DL Urine Glucose (UA) (NEG) MG/DL Urine Ketones (NEG) MG/DL Urine Blood (NEG) Urine Nitrite (NEG) Ur Leukocyte Esterase (NEG) Urine RBC (0) /HPF Urine WBC (0-4) /HPF Ur Squamous Epith Cells /LPF Urine Bacteria /LPF Stool Occult Blood (NEG) Coronavirus (PCR) (Negative) Influenza Type A (PCR) (Negative) Influenza Type B (PCR) (Negative) RSV RNA Qual (PCR) (Negative) 12/22/20 Range/Units Unknown WBC (4.8-10.8) X10*3/uL RBC (4.60-5.80) X10*6/uL Hgb (14.0-18.0) g/dl Hct (42-52) % MCV (80-98) fL MCH (27.0-33.0) pg MCHC (31.0-36.0) g/dl RDW (11.0-16.0) % Plt Count (160-400) X10*3/uL MPV (9.4-12.4) fL Immature Gran % (Auto) (0.0-0.4) % Neut % (Auto) (45-73) % Lymph % (Auto) (20-40) % Dixon % (Auto) (2-11) % Eos % (Auto) (0-4) % Baso % (Auto) (0-2) % Lymph # (Auto) (1.2-4.9) X10*3/uL Dixon # (Auto) (0.1-1.2) X10*3/uL Eos # (Auto) (0.0-0.4) X10*3/uL Baso # (Auto) (0.0-0.2) X10*3/uL Abs Immat Gran (auto) (0.00-0.03) X10*3/uL Absolute Neuts (auto) (2.0-8.3) X10*3/uL Absolute Nucleated RBC (0.0-0.012) X10*3/uL Nucleated RBC % (auto) (0.0-0.2) /100WBC Smear Tech's Comments PT (10.8-13.0) SEC INR (0.9-1.1) APTT (24.1-38.0) SEC D-Dimer NG/ML Sodium (135-145) mmol/L Potassium (3.3-5.1) mmol/L Chloride (96-108) mmol/L Carbon Dioxide (22-29) mmol/L Anion Gap (12-20) BUN (9-16) mg/dL Creatinine (0.5-1.4) mg/dL Estim Creat Clear Calc Estimated GFR POC Glucose (60-115) mg/dL Random Glucose (60-115) mg/dL Lactic Acid (0.5-2.0) mmol/L Calcium (8.4-10.2) mg/dL Magnesium (1.6-2.6) mg/dL Ferritin (20-250) ng/mL Total Bilirubin (0.0-1.0) mg/dL Direct Bilirubin (0.0-0.5) mg/dL AST (5-37) U/L ALT (0-40) U/L Alkaline Phosphatase (39-117) U/L Lactate Dehydrogenase (118-273) U/L Troponin I High Sens (<3.5-35.0) ng/L C-Reactive Protein (< or = 0.50) mg/dL B-Natriuretic Peptide (<100) pg/mL Total Protein (6.5-8.0) g/dL Albumin (3.5-5.0) g/dL Lipase (8-78) U/L Procalcitonin ng/mL Urine Color Urine Appearance Urine pH (5.0-8.0) Ur Specific [place] (1.005-1.025) Urine Protein (NEG-TRACE) MG/DL Urine Glucose (UA) (NEG) MG/DL Urine Ketones (NEG) MG/DL Urine Blood (NEG) Urine Nitrite (NEG) Ur Leukocyte Esterase (NEG) Urine RBC (0) /HPF Urine WBC (0-4) /HPF Ur Squamous Epith Cells /LPF Urine Bacteria /LPF Stool Occult Blood (NEG) Coronavirus (PCR) POSITIVE A (Negative) Influenza Type A (PCR) NEGATIVE (Negative) Influenza Type B (PCR) NEGATIVE (Negative) RSV RNA Qual (PCR) NEGATIVE (Negative) <Jose Antonio Jade MD - Last Filed: 12/23/20 01:54> Imaging Data Chest x-ray: Attestation: I personally reviewed and interpreted this imaging study as follows: <PHILLIP Taveras - Last Filed: 12/22/20 18:49> Radiologist's impression: FINDINGS: No significant abnormality is noted involving the heart, lungs, mediastinum, bony thorax or soft tissues. XR/XR chest 1V IMPRESSION: No acute cardiopulmonary process. <PHILLIP Taveras - Last Filed: 12/22/20 18:49> CT scan of brain: Attestation: I personally reviewed and interpreted this imaging study as follows: <PHILLIP Taveras - Last Filed: 12/22/20 18:49> Radiologist's impression: FINDINGS: There is no evidence of acute intracranial hemorrhage or territorial infarction. No abnormal mass effect or midline shift is seen. Roland to white matter differentiation is well preserved. No extra-axial fluid collections are identified. The ventricles are normal in size. There is no abnormal attenuation within the brain parenchyma. The osseous structures and soft tissues are normal. The mastoid air cells and visualized portions of the paranasal sinuses are well aerated. CT/CT head/brain wo con IMPRESSION: No acute intracranial pathology. <PHILLIP Taveras - Last Filed: 12/22/20 18:49> CT scan of abdomen and pelvis without IV contrast: Attestation: I personally reviewed and interpreted this imaging study as follows: <PHILLIP Taveras - Last Filed: 12/22/20 18:49> Radiologist's impression: FINDINGS: LUNG BASES: There are minimal scattered groundglass opacities in the right lower lobe. LIVER, GALLBLADDER, AND BILIARY TREE: The liver is normal in size, shape, and attenuation. No focal hepatic lesion or biliary ductal dilatation is present. The gallbladder is unremarkable with no evidence of radiopaque gallstones, gallbladder wall thickening, or obvious pericholecystic inflammatory changes. PANCREAS: There are chunky calcifications in the pancreatic head and smaller calcifications in the body and tail, likely sequela from chronic pancreatitis. SPLEEN: Unremarkable. ADRENAL GLANDS: Unremarkable. KIDNEYS AND URETERS: The kidneys are lobulated. There are several exophytic low-density lesions, likely pharmaceutical specialty representative of cysts. The largest on the right measures 5.5 cm. The largest on the left measures 3.8 cm. No hydronephrosis. No renal calculi. BLADDER: Unremarkable. GASTROINTESTINAL TRACT: The stomach and small bowel are not dilated. There is diverticulosis of the descending and sigmoid colon without evidence of diverticulitis. There is liquid stool within the colon with internal air-fluid levels. No focal area of increased density to suggest an area of active bleeding, however evaluation is limited due to lack of IV contrast. Normal appendix. No pericolonic inflammatory changes. ABDOMINAL WALL: No significant hernia is appreciated. LYMPH NODES: Normal. VASCULAR: Normal caliber of the abdominal aorta. Scattered atheromatous calcifications. PELVIC VISCERA: Mild prominence of the prostate gland with mass effect at the bladder base. OSSEOUS STRUCTURES: No acute osseous or suspicious abnormality. Multilevel degenerative changes of the lumbar spine. CT/CT abdomen pelvis wo con IMPRESSION: Diverticulosis of the descending and sigmoid colon without evidence of diverticulitis. Liquid stool within the colon. No pericolonic inflammatory change. Large bilateral renal cysts, overall similar in appearance. Calcifications within the pancreas, likely pharmaceutical specialty representative of sequela from chronic pancreatitis. <PHILLIP Taveras - Last Filed: 12/22/20 18:49> ECG Data Attestation: I personally reviewed and interpreted this ECG as follows: <PHILLIP Taveras - Last Filed: 12/22/20 18:49> I personally reviewed and interpreted this ECG as follows: <Jose Antonio Jade MD - Last Filed: 12/23/20 01:54> ECG interpretation date: 12/22/20 <PHILLIP Taveras - Last Filed: 12/22/20 18:49> ECG interpretation time: 17:38 <PHILLIP Taveras - Last Filed: 12/22/20 18:49> Interpretation: Atrial fibrillation with ventricular rate of 91 with a normal QRS duration normal QT/QTC interval. No acute ischemic changes noted. New onset of atrial fibrillation not similar when compared to prior EKG on 10/07/2014 and EKG from [facility] records on 04/10/2020. Although no acute ischemic changes noted. <PHILLIP Taveras - Last Filed: 12/22/20 18:49> Normal sinus rhythm heart rate 83 beats per minute normal axis normal intervals no acute ST T wave changes impression normal EKG <Jose Antonio Jade MD - Last Filed: 12/23/20 01:54> Critical Care Time Critical Care Time Critical Care Time: Yes <PHILLIP Taveras Last Filed: 12/22/20 18:49> Total Critical Care Time: 60 <PHILLIP Taveras - Last Filed: 12/22/20 18:49> Attestation: I personally attest to this time spent taking care of the patient <PHILLIP Taveras - Last Filed: 12/22/20 18:49> Discharge Plan Discharge Clinical Impression: COVID-19 Atrial fibrillation Qualifiers: Atrial fibrillation type: paroxysmal Qualified Code(s): I48.0 - Paroxysmal atrial fibrillation CKD (chronic kidney disease) Qualifiers: Chronic kidney disease stage: stage 4 (severe) Qualified Code(s): N18.4 - Chronic kidney disease, stage 4 (severe) <PHILLIP Taveras - Last Filed: 12/22/20 18:49> Patient Disposition: Home, Self-Care <PHILLIP Taveras - Last Filed: 12/22/20 18:49> Instructions: A-fib (Atrial Fibrillation) (ED), COVID-19 (Coronavirus Disease 2019) (ED) <PHILLIP Taveras Last Filed: 12/22/20 18:49> Additional Instructions: Rest at home. Drink plenty of fluids. Report to the ER if increased shortness of breath. You have paroxysmal atrial fibrillation please follow-up with graphics edit technician. Take Eliquis as advised to prevent blood clots Start taking Decadron for COVID-19 inflammation that will increase your blood sugar, adjust dose of insulin according to blood sugar <PHILLIP Taveras Last Filed: 12/22/20 18:49> Prescriptions: New Eliquis 2.5 mg tablet 2.5 mg PO BID Qty: 60 RF: 0 dexamethasone [Decadron] 6 mg tablet 6 mg PO DAILY Qty: 7 RF: 0 No Action azathioprine 50 mg tablet 3 tab PO DAILY RF: 0 amlodipine 5 mg tablet PO RF: 0 lisinopril 10 mg tablet 1 tab PO DAILY RF: 0 gabapentin 300 mg capsule 1 cap PO BEDTIME RF: 0 omeprazole 20 mg capsule,delayed release(DR/EC) PO RF: 0 hydrochlorothiazide 12.5 mg tablet 1 tab PO DAILY RF: 0 Basaglar KwikPen U-100 Insulin 100 unit/mL (3 mL) insulin pen subcut RF: 0 Trulicity 0.75 mg/0.5 mL pen injector 1 mg subcut QWEEK RF: 0 <PHILLIP Taveras - Last Filed: 12/22/20 18:49> Referrals: Navarro Méndez MD [Physician] - 1 week <PHILLIP Taveras - Last Filed: 12/22/20 18:49> FOR[facility], [facility] Past Medical History Attestation statement: The following information was validated with the patient. <PHILLIP Taveras - Last Filed: 12/22/20 18:49> Medical History: Medical History CKD (chronic kidney disease) Colitis Diabetes <PHILLIP Taveras - Last Filed: 12/22/20 18:49> Social History Social History: Social History Advance Directives: No Advance Directives Information Provided: No <PHILLIP Taveras - Last Filed: 12/22/20 18:49>
[2020-12-22 11:48] LABS: Basophils Percent Auto 0.2 % (0-2); Eosinophils Absolute Auto 0.1 X10*3/uL (0.0-0.4); Eosinophils Percent Auto 2.3 % (0-4); Hematocrit 31.8 % (42-52); Hemoglobin 10.9 g/dl (14.0-18.0); Imm Gran Abs Auto 0.02 X10*3/uL (0.00-0.03); Imm Gran Pct Auto 0.4 % (0.0-0.4); Lymphocytes Absolute Auto 0.5 X10*3/uL (1.2-4.9); Lymphocytes Percent Auto 10.5 % (20-40); MANUAL DIFF FLAG SCAN; Mean Corpuscular HGB Conc 34.3 g/dl (31.0-36.0); Mean Corpuscular Hemoglobin 32.1 pg (27.0-33.0); Mean Corpuscular Volume 93.5 fL (80-98); Mean Platelet Volume 10.8 fL (9.4-12.4); Monocytes Absolute Auto 0.4 X10*3/uL (0.1-1.2); Monocytes Percent Auto 8.8 % (2-11); Neutrophils Absolute Auto 3.7 X10*3/uL (2.0-8.3); Neutrophils Percent Auto 77.8 % (45-73); Platelet Count 244 X10*3/uL (160-400); Red Cell Distribution Width 14.1 % (11.0-16.0); SCAN SMEAR FLAG 1; White Blood Count 4.8 X10*3/uL (4.8-10.8)
[2020-12-22 12:07] LABS: Lactic Acid 1.3 mmol/L (0.5-2.0)
[2020-12-22 12:11] LABS: C Reactive Protein 2.87 mg/dL (< or = 0.50)
[2020-12-22 12:12] LABS: Alanine Aminotransferase 18 U/L (0-40); Albumin Level 4.5 g/dL (3.5-5.0); Alkaline Phosphatase 81 U/L (39-117); Anion Gap 17 (12-20); Aspartate Amino Transferase 23 U/L (5-37); Bilirubin Direct 0.2 mg/dL (0.0-0.5); Bilirubin Total 0.3 mg/dL (0.0-1.0); Blood Urea Nitrogen 60 mg/dL (9-16); Calcium 8.5 mg/dL (8.4-10.2); Carbon Dioxide 19 mmol/L (22-29); Chloride 101 mmol/L (96-108); Estimated Glomerular Filt Rate 18; Glucose Random 236 mg/dL (60-115); Lactate Dehydrogenase 179 U/L (118-273); Magnesium 2.2 mg/dL (1.6-2.6); Potassium 4.3 mmol/L (3.3-5.1); Sodium 133 mmol/L (135-145); Total Protein 7.9 g/dL (6.5-8.0)
[2020-12-22 12:13] LABS: Lipase 58 U/L (8-78)
[2020-12-22 12:19] LABS: B Type Natriuretic Peptide 19 pg/mL (<100)
[2020-12-22 12:20] LABS: SLIDE REVIEW VERIFIED
[2020-12-22 12:29] LABS: Procalcitonin 0.34 ng/mL
[2020-12-22] MEDS: 0.9 % Sodium Chloride 1,000 ML 999 ML IVCONT (12:38)
[2020-12-22 12:45] VITALS: BP 174/84
[2020-12-22 12:51] LABS: Influenza B PCR NEGATIVE (Negative); Resp Syncy Virus RNA Qual PCR NEGATIVE (Negative); SARS COV2 PCR INHOUSE POSITIVE (Negative)
[2020-12-22 13:19] LABS: Influenza A PCR NEGATIVE (Negative)
[2020-12-22 13:21] LABS: Ferritin 886 ng/mL (20-250)
[2020-12-22 13:50] LABS: Glucose Urine UA NEG (NEG); Leukocyte Esterase Urine NEG (NEG); Nitrite Urine NEG (NEG); Specific Gravity - Urine 1.025 (1.005-1.025); Urine Blood 1+ (NEG); Urine Ketones 5 MG/DL (NEG); Urine Protein 2+ MG/DL (NEG-TRACE)
[2020-12-22 13:51] LABS: OBS Int Ctl Valid YES; OBS1 NEG (NEG)
[2020-12-22 13:52] LABS: Appearance Urine CLEAR; Color Urine YELLOW
[2020-12-22 13:59] LABS: WBC Urine 0-2 /HPF (0-4)
[2020-12-22 14:34] LABS: INTERNATIONAL NORM RATIO 1.2 (0.9-1.1); Prothrombin Time 13.9 SEC (10.8-13.0)
[2020-12-22 14:37] LABS: D Dimer 317 NG/ML; Partial Thromboplastin Time 35.1 SEC (24.1-38.0)
[2020-12-22] MEDS: levoFLOXacin/D5W 750 MG/150 ML PIGGYBACK 100 MG IV (14:45)
[2020-12-22] MEDS: Acetaminophen 325 MG TABLET 975 MG PO (14:45)
[2020-12-22 16:13] VITALS: BP 101/59; PULSE 112; RESP 18; O2SAT 99
[2020-12-22 16:38] LABS: Troponin-I High Sensitivity 23.3 ng/L (<3.5-35.0)
[2020-12-22 17:17] VITALS: BP 114/54; PULSE 94; RESP 20; O2SAT 97
[2020-12-22 17:49] LABS: Glucose, Whole Blood 173 mg/dL (60-115)
[2020-12-22 18:59] VITALS: BP 145/56; PULSE 70; RESP 14; O2SAT 100
[2020-12-22] MEDS: Apixaban 5 MG TABLET PO (19:00)
[2020-12-22 23:38] VITALS: BP 136/65; PULSE 71; RESP 16; TEMP 36.6; O2SAT 100
--- NOTE | 2020-12-23 00:06 | PC.NURSE ---
hospitalist aware of need to admit patient.
--- NOTE | 2020-12-23 01:08 | ED.GENADULT ---
HPI - General Adult General Chief complaint: General Medical Stated complaint: ABD PAIN SORE THROAT Time Seen by Provider: 12/22/20 11:13 Source: patient Mode of arrival: ambulatory Limitations: no limitations Related Data Home Medications Medication Instructions Recorded Confirmed amlodipine tab PO 12/22/20 azathioprine 3 tab PO DAILY 12/22/20 12/22/20 dulaglutide [Trulicity] 1 mg SUBCUT QWEEK 12/22/20 12/22/20 gabapentin 1 cap PO BEDTIME 12/22/20 12/22/20 hydrochlorothiazide 1 tab PO DAILY 12/22/20 12/22/20 insulin glargine [Basaglar KwikPen SUBCUT 12/22/20 U-100 Insulin] lisinopril 1 tab PO DAILY 12/22/20 12/22/20 omeprazole cap PO 12/22/20 Allergies Allergy/AdvReac Type Severity Reaction Status Date / Time aspirin [ASA] Allergy Severe CANNOT USE Unverified 08/01/20 18:48 DUE TO CROHNS Penicillins [PENICILLINS] Allergy Intermediate VOMITING Unverified 08/01/20 18:48 [facility] Past Medical History Medical History CKD (chronic kidney disease) Colitis Diabetes Social History Social History Advance Directives: No Advance Directives Information Provided: No Physical Exam Vital Signs: Vital Signs: Last Vital Signs Temp 97.9 F 12/22/20 23:38 Pulse 71 12/22/20 23:38 Resp 16 12/22/20 23:38 BP 136/65 12/22/20 23:38 Pulse Ox 100 12/22/20 23:38 Body Mass Index 28.9 Course Course Course Narrative: Patient with newly diagnosed COVID-19 saturating 100% at room air chest x-ray negative for any acute infiltrate also noticed to have atrial fibrillation which is paroxysmal with controlled rate. 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 Medical Decision Making Lab Data Result diagrams: 12/22/20 11:39 12/22/20 11:39 Labs: Lab Results 12/22/20 12/22/20 12/22/20 Range/Units 11:39 11:39 11:39 WBC 4.8 (4.8-10.8) X10*3/uL RBC 3.40 L (4.60-5.80) X10*6/uL Hgb 10.9 L (14.0-18.0) g/dl Hct 31.8 L (42-52) % MCV 93.5 (80-98) fL MCH 32.1 (27.0-33.0) pg MCHC 34.3 (31.0-36.0) g/dl RDW 14.1 (11.0-16.0) % Plt Count 244 (160-400) X10*3/uL MPV 10.8 (9.4-12.4) fL Immature Gran % (Auto) 0.4 (0.0-0.4) % Neut % (Auto) 77.8 H (45-73) % Lymph % (Auto) 10.5 L (20-40) % [place] % (Auto) 8.8 (2-11) % Eos % (Auto) 2.3 (0-4) % Baso % (Auto) 0.2 (0-2) % Lymph # (Auto) 0.5 L (1.2-4.9) X10*3/uL [place] # (Auto) 0.4 (0.1-1.2) X10*3/uL Eos # (Auto) 0.1 (0.0-0.4) X10*3/uL Baso # (Auto) 0.0 (0.0-0.2) X10*3/uL Abs Immat Gran (auto) 0.02 (0.00-0.03) X10*3/uL Absolute Neuts (auto) 3.7 (2.0-8.3) X10*3/uL Absolute Nucleated RBC 0.000 (0.0-0.012) X10*3/uL Nucleated RBC % (auto) 0.0 (0.0-0.2) /100WBC Smear Tech's Comments VERIFIED PT (10.8-13.0) SEC INR (0.9-1.1) APTT (24.1-38.0) SEC D-Dimer NG/ML Sodium 133 L (135-145) mmol/L Potassium 4.3 (3.3-5.1) mmol/L Chloride 101 (96-108) mmol/L Carbon Dioxide 19 L (22-29) mmol/L Anion Gap 17 (12-20) BUN 60 H (9-16) mg/dL Creatinine 3.45 H (0.5-1.4) mg/dL Estim Creat Clear Calc 23.0 Estimated GFR 18 POC Glucose (60-115) mg/dL Random Glucose 236 H (60-115) mg/dL Lactic Acid 1.3 (0.5-2.0) mmol/L Calcium 8.5 (8.4-10.2) mg/dL Magnesium 2.2 (1.6-2.6) mg/dL Ferritin (20-250) ng/mL Total Bilirubin 0.3 (0.0-1.0) mg/dL Direct Bilirubin 0.2 (0.0-0.5) mg/dL AST 23 (5-37) U/L ALT 18 (0-40) U/L Alkaline Phosphatase 81 (39-117) U/L Lactate Dehydrogenase 179 (118-273) U/L Troponin I High Sens (<3.5-35.0) ng/L C-Reactive Protein (< or = 0.50) mg/dL B-Natriuretic Peptide (<100) pg/mL Total Protein 7.9 (6.5-8.0) g/dL Albumin 4.5 (3.5-5.0) g/dL Lipase (8-78) U/L Procalcitonin ng/mL Urine Color Urine Appearance Urine pH (5.0-8.0) Ur Specific Hollis (1.005-1.025) Urine Protein (NEG-TRACE) MG/DL Urine Glucose (UA) (NEG) MG/DL Urine Ketones (NEG) MG/DL Urine Blood (NEG) Urine Nitrite (NEG) Ur Leukocyte Esterase (NEG) Urine RBC (0) /HPF Urine WBC (0-4) /HPF Ur Squamous Epith Cells /LPF Urine Bacteria /LPF Stool Occult Blood (NEG) Coronavirus (PCR) (Negative) Influenza Type A (PCR) (Negative) Influenza Type B (PCR) (Negative) RSV RNA Qual (PCR) (Negative) 12/22/20 12/22/20 12/22/20 Range/Units 11:39 11:39 11:39 WBC (4.8-10.8) X10*3/uL RBC (4.60-5.80) X10*6/uL Hgb (14.0-18.0) g/dl Hct (42-52) % MCV (80-98) fL MCH (27.0-33.0) pg MCHC (31.0-36.0) g/dl RDW (11.0-16.0) % Plt Count (160-400) X10*3/uL MPV (9.4-12.4) fL Immature Gran % (Auto) (0.0-0.4) % Neut % (Auto) (45-73) % Lymph % (Auto) (20-40) % [place] % (Auto) (2-11) % Eos % (Auto) (0-4) % Baso % (Auto) (0-2) % Lymph # (Auto) (1.2-4.9) X10*3/uL [place] # (Auto) (0.1-1.2) X10*3/uL Eos # (Auto) (0.0-0.4) X10*3/uL Baso # (Auto) (0.0-0.2) X10*3/uL Abs Immat Gran (auto) (0.00-0.03) X10*3/uL Absolute Neuts (auto) (2.0-8.3) X10*3/uL Absolute Nucleated RBC (0.0-0.012) X10*3/uL Nucleated RBC % (auto) (0.0-0.2) /100WBC Smear Tech's Comments PT (10.8-13.0) SEC INR (0.9-1.1) APTT (24.1-38.0) SEC D-Dimer NG/ML Sodium (135-145) mmol/L Potassium (3.3-5.1) mmol/L Chloride (96-108) mmol/L Carbon Dioxide (22-29) mmol/L Anion Gap (12-20) BUN (9-16) mg/dL Creatinine (0.5-1.4) mg/dL Estim Creat Clear Calc Estimated GFR POC Glucose (60-115) mg/dL Random Glucose (60-115) mg/dL Lactic Acid (0.5-2.0) mmol/L Calcium (8.4-10.2) mg/dL Magnesium (1.6-2.6) mg/dL Ferritin 886 H (20-250) ng/mL Total Bilirubin (0.0-1.0) mg/dL Direct Bilirubin (0.0-0.5) mg/dL AST (5-37) U/L ALT (0-40) U/L Alkaline Phosphatase (39-117) U/L Lactate Dehydrogenase (118-273) U/L Troponin I High Sens 18.0 (<3.5-35.0) ng/L C-Reactive Protein 2.87 H (< or = 0.50) mg/dL B-Natriuretic Peptide 19 (<100) pg/mL Total Protein (6.5-8.0) g/dL Albumin (3.5-5.0) g/dL Lipase (8-78) U/L Procalcitonin 0.34 ng/mL Urine Color Urine Appearance Urine pH (5.0-8.0) Ur Specific Hollis (1.005-1.025) Urine Protein (NEG-TRACE) MG/DL Urine Glucose (UA) (NEG) MG/DL Urine Ketones (NEG) MG/DL Urine Blood (NEG) Urine Nitrite (NEG) Ur Leukocyte Esterase (NEG) Urine RBC (0) /HPF Urine WBC (0-4) /HPF Ur Squamous Epith Cells /LPF Urine Bacteria /LPF Stool Occult Blood (NEG) Coronavirus (PCR) (Negative) Influenza Type A (PCR) (Negative) Influenza Type B (PCR) (Negative) RSV RNA Qual (PCR) (Negative) 12/22/20 12/22/20 12/22/20 Range/Units 11:39 13:41 13:41 WBC (4.8-10.8) X10*3/uL RBC (4.60-5.80) X10*6/uL Hgb (14.0-18.0) g/dl Hct (42-52) % MCV (80-98) fL MCH (27.0-33.0) pg MCHC (31.0-36.0) g/dl RDW (11.0-16.0) % Plt Count (160-400) X10*3/uL MPV (9.4-12.4) fL Immature Gran % (Auto) (0.0-0.4) % Neut % (Auto) (45-73) % Lymph % (Auto) (20-40) % [place] % (Auto) (2-11) % Eos % (Auto) (0-4) % Baso % (Auto) (0-2) % Lymph # (Auto) (1.2-4.9) X10*3/uL [place] # (Auto) (0.1-1.2) X10*3/uL Eos # (Auto) (0.0-0.4) X10*3/uL Baso # (Auto) (0.0-0.2) X10*3/uL Abs Immat Gran (auto) (0.00-0.03) X10*3/uL Absolute Neuts (auto) (2.0-8.3) X10*3/uL Absolute Nucleated RBC (0.0-0.012) X10*3/uL Nucleated RBC % (auto) (0.0-0.2) /100WBC Smear Tech's Comments PT (10.8-13.0) SEC INR (0.9-1.1) APTT (24.1-38.0) SEC D-Dimer NG/ML Sodium (135-145) mmol/L Potassium (3.3-5.1) mmol/L Chloride (96-108) mmol/L Carbon Dioxide (22-29) mmol/L Anion Gap (12-20) BUN (9-16) mg/dL Creatinine (0.5-1.4) mg/dL Estim Creat Clear Calc Estimated GFR POC Glucose (60-115) mg/dL Random Glucose (60-115) mg/dL Lactic Acid (0.5-2.0) mmol/L Calcium (8.4-10.2) mg/dL Magnesium (1.6-2.6) mg/dL Ferritin (20-250) ng/mL Total Bilirubin (0.0-1.0) mg/dL Direct Bilirubin (0.0-0.5) mg/dL AST (5-37) U/L ALT (0-40) U/L Alkaline Phosphatase (39-117) U/L Lactate Dehydrogenase (118-273) U/L Troponin I High Sens (<3.5-35.0) ng/L C-Reactive Protein (< or = 0.50) mg/dL B-Natriuretic Peptide (<100) pg/mL Total Protein (6.5-8.0) g/dL Albumin (3.5-5.0) g/dL Lipase 58 (8-78) U/L Procalcitonin ng/mL Urine Color YELLOW Urine Appearance CLEAR Urine pH 6.0 (5.0-8.0) Ur Specific Hollis 1.025 (1.005-1.025) Urine Protein 2+ H (NEG-TRACE) MG/DL Urine Glucose (UA) NEG (NEG) MG/DL Urine Ketones 5 (NEG) MG/DL Urine Blood 1+ H (NEG) Urine Nitrite NEG (NEG) Ur Leukocyte Esterase NEG (NEG) Urine RBC 1-4 (0) /HPF Urine WBC 0-2 (0-4) /HPF Ur Squamous Epith Cells NONE /LPF Urine Bacteria NONE /LPF Stool Occult Blood NEG (NEG) Coronavirus (PCR) (Negative) Influenza Type A (PCR) (Negative) Influenza Type B (PCR) (Negative) RSV RNA Qual (PCR) (Negative) 12/22/20 12/22/20 12/22/20 Range/Units 14:17 16:03 17:31 WBC (4.8-10.8) X10*3/uL RBC (4.60-5.80) X10*6/uL Hgb (14.0-18.0) g/dl Hct (42-52) % MCV (80-98) fL MCH (27.0-33.0) pg MCHC (31.0-36.0) g/dl RDW (11.0-16.0) % Plt Count (160-400) X10*3/uL MPV (9.4-12.4) fL Immature Gran % (Auto) (0.0-0.4) % Neut % (Auto) (45-73) % Lymph % (Auto) (20-40) % [place] % (Auto) (2-11) % Eos % (Auto) (0-4) % Baso % (Auto) (0-2) % Lymph # (Auto) (1.2-4.9) X10*3/uL [place] # (Auto) (0.1-1.2) X10*3/uL Eos # (Auto) (0.0-0.4) X10*3/uL Baso # (Auto) (0.0-0.2) X10*3/uL Abs Immat Gran (auto) (0.00-0.03) X10*3/uL Absolute Neuts (auto) (2.0-8.3) X10*3/uL Absolute Nucleated RBC (0.0-0.012) X10*3/uL Nucleated RBC % (auto) (0.0-0.2) /100WBC Smear Tech's Comments PT 13.9 H (10.8-13.0) SEC INR 1.2 H (0.9-1.1) APTT 35.1 (24.1-38.0) SEC D-Dimer 317 NG/ML Sodium (135-145) mmol/L Potassium (3.3-5.1) mmol/L Chloride (96-108) mmol/L Carbon Dioxide (22-29) mmol/L Anion Gap (12-20) BUN (9-16) mg/dL Creatinine (0.5-1.4) mg/dL Estim Creat Clear Calc Estimated GFR POC Glucose 173 H (60-115) mg/dL Random Glucose (60-115) mg/dL Lactic Acid (0.5-2.0) mmol/L Calcium (8.4-10.2) mg/dL Magnesium (1.6-2.6) mg/dL Ferritin (20-250) ng/mL Total Bilirubin (0.0-1.0) mg/dL Direct Bilirubin (0.0-0.5) mg/dL AST (5-37) U/L ALT (0-40) U/L Alkaline Phosphatase (39-117) U/L Lactate Dehydrogenase (118-273) U/L Troponin I High Sens 23.3 (<3.5-35.0) ng/L C-Reactive Protein (< or = 0.50) mg/dL B-Natriuretic Peptide (<100) pg/mL Total Protein (6.5-8.0) g/dL Albumin (3.5-5.0) g/dL Lipase (8-78) U/L Procalcitonin ng/mL Urine Color Urine Appearance Urine pH (5.0-8.0) Ur Specific Hollis (1.005-1.025) Urine Protein (NEG-TRACE) MG/DL Urine Glucose (UA) (NEG) MG/DL Urine Ketones (NEG) MG/DL Urine Blood (NEG) Urine Nitrite (NEG) Ur Leukocyte Esterase (NEG) Urine RBC (0) /HPF Urine WBC (0-4) /HPF Ur Squamous Epith Cells /LPF Urine Bacteria /LPF Stool Occult Blood (NEG) Coronavirus (PCR) (Negative) Influenza Type A (PCR) (Negative) Influenza Type B (PCR) (Negative) RSV RNA Qual (PCR) (Negative) 12/22/20 Range/Units Unknown WBC (4.8-10.8) X10*3/uL RBC (4.60-5.80) X10*6/uL Hgb (14.0-18.0) g/dl Hct (42-52) % MCV (80-98) fL MCH (27.0-33.0) pg MCHC (31.0-36.0) g/dl RDW (11.0-16.0) % Plt Count (160-400) X10*3/uL MPV (9.4-12.4) fL Immature Gran % (Auto) (0.0-0.4) % Neut % (Auto) (45-73) % Lymph % (Auto) (20-40) % [place] % (Auto) (2-11) % Eos % (Auto) (0-4) % Baso % (Auto) (0-2) % Lymph # (Auto) (1.2-4.9) X10*3/uL [place] # (Auto) (0.1-1.2) X10*3/uL Eos # (Auto) (0.0-0.4) X10*3/uL Baso # (Auto) (0.0-0.2) X10*3/uL Abs Immat Gran (auto) (0.00-0.03) X10*3/uL Absolute Neuts (auto) (2.0-8.3) X10*3/uL Absolute Nucleated RBC (0.0-0.012) X10*3/uL Nucleated RBC % (auto) (0.0-0.2) /100WBC Smear Tech's Comments PT (10.8-13.0) SEC INR (0.9-1.1) APTT (24.1-38.0) SEC D-Dimer NG/ML Sodium (135-145) mmol/L Potassium (3.3-5.1) mmol/L Chloride (96-108) mmol/L Carbon Dioxide (22-29) mmol/L Anion Gap (12-20) BUN (9-16) mg/dL Creatinine (0.5-1.4) mg/dL Estim Creat Clear Calc Estimated GFR POC Glucose (60-115) mg/dL Random Glucose (60-115) mg/dL Lactic Acid (0.5-2.0) mmol/L Calcium (8.4-10.2) mg/dL Magnesium (1.6-2.6) mg/dL Ferritin (20-250) ng/mL Total Bilirubin (0.0-1.0) mg/dL Direct Bilirubin (0.0-0.5) mg/dL AST (5-37) U/L ALT (0-40) U/L Alkaline Phosphatase (39-117) U/L Lactate Dehydrogenase (118-273) U/L Troponin I High Sens (<3.5-35.0) ng/L C-Reactive Protein (< or = 0.50) mg/dL B-Natriuretic Peptide (<100) pg/mL Total Protein (6.5-8.0) g/dL Albumin (3.5-5.0) g/dL Lipase (8-78) U/L Procalcitonin ng/mL Urine Color Urine Appearance Urine pH (5.0-8.0) Ur Specific Hollis (1.005-1.025) Urine Protein (NEG-TRACE) MG/DL Urine Glucose (UA) (NEG) MG/DL Urine Ketones (NEG) MG/DL Urine Blood (NEG) Urine Nitrite (NEG) Ur Leukocyte Esterase (NEG) Urine RBC (0) /HPF Urine WBC (0-4) /HPF Ur Squamous Epith Cells /LPF Urine Bacteria /LPF Stool Occult Blood (NEG) Coronavirus (PCR) POSITIVE A (Negative) Influenza Type A (PCR) NEGATIVE (Negative) Influenza Type B (PCR) NEGATIVE (Negative) RSV RNA Qual (PCR) NEGATIVE (Negative) Discharge Plan Discharge Clinical Impression: COVID-19, Anemia, Diverticulosis, Renal cyst, Chronic pancreatitis, Acute hyponatremia, Atrial fibrillation Patient Disposition: Home, Self-Care Prescriptions: No Action azathioprine 50 mg tablet 3 tab PO DAILY RF: 0 amlodipine 5 mg tablet PO RF: 0 lisinopril 10 mg tablet 1 tab PO DAILY RF: 0 gabapentin 300 mg capsule 1 cap PO BEDTIME RF: 0 omeprazole 20 mg capsule,delayed release(DR/EC) PO RF: 0 hydrochlorothiazide 12.5 mg tablet 1 tab PO DAILY RF: 0 Basaglmaged [place]ira U-100 Insulin 100 unit/mL (3 mL) insulin pen subcut RF: 0 Trulicity 0.75 mg/0.5 mL pen injector 1 mg subcut QWEEK RF: 0
--- NOTE | 2020-12-23 01:09 | ECG_ITS ---
Test Reason : REPEAT Blood Pressure : / mmHG Vent. Rate : 083 BPM Atrial Rate : 083 BPM P-R Int : 156 ms QRS Dur : 076 ms QT Int : 348 ms P-R-T Axes : 027 -29 030 degrees QTc Int : 408 ms Normal sinus rhythm Normal ECG When compared with ECG of 22-DEC-2020 17:38, Sinus rhythm has replaced Atrial fibrillation Referred By: Jose Antonio Jade Electronically Signed By:ODESSA DAVIS
== END 2020-12-25 10:41 | disposition home or self-care (01) ==
PROVIDERS: Emergency Medicine; Physician Assistant Medical; Emergency Provider Internal Medicine; PCP Internal Medicine
DX: U07.1 COVID-19 (principal); D63.1 Anemia in chronic kidney disease; K57.30 Diverticulosis of large intestine without perforation or abscess without bleeding; N28.1 Cyst of kidney, acquired; K86.1 Other chronic pancreatitis; E87.1 Hypo-osmolality and hyponatremia; I48.91 Unspecified atrial fibrillation; E11.22 Type 2 diabetes mellitus with diabetic chronic kidney disease; N18.9 Chronic kidney disease, unspecified; Z79.4 Long term (current) use of insulin
CPT/HCPCS: 0241U; 36415; 70450; 71045; 74176; 78580; 80048; 80076; 81001; 82272; 82728; 82947; 83605; 83615; 83690; 83735; 83880; 84145; 84484; 85025; 85379; 85610; 85730; 86140; 87040; 93005; 99284; A9540; J1100; J1956

== ENCOUNTER 2023-11-26 11:55 | Outpatient (AMB) | payer OTHER, SELFPAY ==
--- NOTE | 2023-11-26 11:55 | HO.NEPHOV_ITS ---
HPI HPI Comments History of Present Illness Details I had the privilege of seeing can in follow-up of his biopsy-proven diabetic chronic kidney disease stage IV. He follows up with his fitting room maintenance mechanic for colitis which is under good control. 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 His blood sugar is better control now. His blood pressure has been at goal. He is compliant with his medications. He denies chest pain, shortness of breath, proximal nocturnal dyspnea, orthopnea, pedal edema, hematuria, dysuria, frequency, night sweats, weight loss or orthostatic symptoms. He does not take any nonsteroidal anti-inflammatory medications. He feels well. All other systems were reviewed and were negative. [facility] Medical History (Updated 11/26/23 @ 15:56 by Pedro Callaway MD) Diabetes CKD (chronic kidney disease) Colitis Surgical History (Updated 11/26/23 @ 12:00 by Michelle Douglas MA) History of neck surgery Family History (Updated 11/26/23 @ 12:01 by Michelle Douglas MA) Mother Cancer Social History (Updated 11/26/23 @ 12:01 by Michelle Douglas MA) Alcohol intake: never Patient Tobacco Use Status: Former Tobacco user Vital Signs 11/26/23 11:56 Height 5 ft 11 in Weight 231 lb 4 oz BMI 32.2 BP 128/68 Blood Pressure Location Lt brachial Position Sitting Pulse 82 Pulse Source Pulse Oximeter Pulse Oximetry (%) 98 Oxygen Delivery Method Room Air Physical Exam Vital Signs: Last Vital Signs Pulse 82 11/26/23 11:56 BP 128/68 11/26/23 11:56 Pulse Ox 98 11/26/23 11:56 Oxygen Delivery Method Room Air 11/26/23 11:56 BMI result Body Mass Index 32.2 Const General: comfortable and no acute distress Orientation/consciousness: patient oriented x3 HEENT Head: Yes normocephalic Mouth: Normal oral and palatal mucosa present Eyes EOM: EOMs intact bilaterally Neck Neck: Yes supple Resp Auscultation: clear to auscultation bilaterally Cardio Jugular venous distension: no JVD Rate: regular rate GI Palpation (GI): Soft to palpation Auscultation: normal bowel sounds General: Yes no CVA tenderness Back/Spine/Pelvis Back: no CVA tenderness Skin General skin exam: no rashes or lesions noted Neuro General: patient oriented x3 and moves all extremities Extrem General: Yes no pedal edema Assessment & Plan Assessment & Plan (1) Hypertension: Code(s): I10 - Essential (primary) hypertension Qualifiers: Hypertension type: primary hypertension Qualified Code(s): I10 - E ssential (primary) hypertension (2) CKD stage 4 due to type 2 diabetes mellitus: Code(s): E11.22 - Type 2 diabetes mellitus with diabetic chronic kidney disease; N18.4 - Chronic kidney disease, stage 4 (severe) Plan Calos has 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 He will need imaging of his kidneys which I plan to do after reviewing his lab work. His blood pressure is better controlled and so is the blood sugar. He has history of proteinuria. All his serology and immunology as a part of CKD workup had been negative in the past. His last documented GFR by 24 hour urine collection was close to 35 mL/minute. He is a great candidate for SGLT 2 inhibitor. He maintains good hydration and avoid NSAIDs. I did not make any medication changes today but ordered follow-up blood work. I answered all his questions. Follow-up appointment given. Orders: Orders Blood Urea Nitrogen Today E11.22 - Type 2 diabetes mellitus with diabetic chronic kidney disease, I10 - Essential (primary) hypertension, N18.4 - Chronic kidney disease, stage 4 (severe) Creatinine Today E11.22 - Type 2 diabetes mellitus with diabetic chronic kidney disease, I10 - Essential (primary) hypertension, N18.4 - Chronic kidney disease, stage 4 (severe) Phosphorus Today E11.22 - Type 2 diabetes mellitus with diabetic chronic kidney disease, I10 - Essential (primary) hypertension, N18.4 - Chronic kidney disease, stage 4 (severe) Vitamin D 25-OH Total Today E11.22 - Type 2 diabetes mellitus with diabetic chronic kidney disease, I10 - Essential (primary) hypertension, N18.4 - Chronic kidney disease, stage 4 (severe) Protein Creatinine Ratio, Ur Today E11.22 - Type 2 diabetes mellitus with diabetic chronic kidney disease, I10 - Essential (primary) hypertension, N18.4 - Chronic kidney disease, stage 4 (severe) Hemoglobin A1c Today E11.22 - Type 2 diabetes mellitus with diabetic chronic kidney disease, I10 - Essential (primary) hypertension, N18.4 - Chronic kidney disease, stage 4 (severe) Electrolytes Today E11. - Type 2 diabetes mellitus with diabetic chronic kidney disease, I10 - Essential (primary) hypertension, N18.4 - Chronic kidney disease, stage 4 (severe) Parathyroid Hormone Intact Today E11. - Type 2 diabetes mellitus with diabetic chronic kidney disease, I10 - Essential (primary) hypertension, N18.4 - Chronic kidney disease, stage 4 (severe) Complete Blood Count Auto Diff Today . - Type 2 diabetes mellitus with diabetic chronic kidney disease, I10 - Essential (primary) hypertension, N18.4 - Chronic kidney disease, stage 4 (severe) Coding Level of Care Code Est Pt Level 4 (77973) Diagnoses Primary hypertension I10 Hypertension type: primary hypertension CKD stage 4 due to type 2 diabetes mellitus E11; N18.4 Results Reviewed Nephrology Results: Hgb 10.9 g/dl (14.0-18.0) L 12/22/20 WBC 4.8 X10*3/uL (4.8-10.8) 12/22/20 Plt Count 244 X10*3/uL (160-400) 12/22/20 Sodium 133 mmol/L (135-145) L 12/22/20 Potassium 4.3 mmol/L (3.3-5.1) 12/22/20 Chloride 101 mmol/L (96-108) 12/22/20 Carbon Dioxide 19 mmol/L (22-29) L 12/22/20 BUN 60 mg/dL (9-16) H 12/22/20 Creatinine 3.45 mg/dL (0.5-1.4) H 12/22/20 Calcium 8.5 mg/dL (8.4-10.2) 12/22/20 Urine Protein 2+ MG/DL (NEG-TRACE) H 12/22/20
[2023-11-26 11:56] VITALS: BP 128/68; PULSE 82; O2SAT 98; BMI 32.2
== END 2023-11-26 12:28 | disposition home or self-care (01) ==
PROVIDERS: PCP Internal Medicine; Visit Provider Internal Medicine Nephrology
DX: I12.9 Hypertensive chronic kidney disease with stage 1 through stage 4 chronic kidney disease, or unspecified chronic kidney disease (principal); E11.22 Type 2 diabetes mellitus with diabetic chronic kidney disease; N18.4 Chronic kidney disease, stage 4 (severe)
CPT/HCPCS: 99214

== ENCOUNTER → 2023-11-26 11:55 | Outpatient (BNVA) | payer OTHER, SELFPAY | PROVIDERS: PCP Internal Medicine; Visit Provider Internal Medicine Nephrology ==

== ENCOUNTER 2024-02-25 15:02 | Outpatient (AMB) | payer OTHER, SELFPAY ==
--- NOTE | 2024-02-25 15:13 | HO.NEPHOV_ITS ---
HPI HPI Comments History of Present Illness Details I had the privilege of seeing can in follow-up of his biopsy-proven diabetic chronic kidney disease stage IV. 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 His blood sugar is better control now. His blood pressure has been at goal. He is compliant with his medications. He denies chest pain, shortness of breath, proximal nocturnal dyspnea, orthopnea, pedal edema, hematuria, dysuria, frequency, night sweats, weight loss or orthostatic symptoms. He does not take any nonsteroidal anti-inflammatory medications. His HCTZ dosage has been increased to 25 mg due to fluctuant BP. He feels well. All other systems were reviewed and were negative. [facility] Medical History (Updated 11/26/23 @ 15:56 by Pedro Callaway MD) Diabetes CKD (chronic kidney disease) Colitis Surgical History History of neck surgery Family History Mother Cancer Social History Alcohol intake: never Patient Tobacco Use Status: Former Tobacco user Vital Signs 02/25/24 15:15 Height 5 ft 11 in Weight 221 lb 2 oz BMI 30.8 BP 140/70 H Blood Pressure Location Lt brachial Position Sitting Pulse 74 Pulse Source Pulse Oximeter Pulse Oximetry (%) 98 Oxygen Delivery Method Room Air Physical Exam Vital Signs: Last Vital Signs Pulse 74 02/25/24 15:15 BP 140/70 H 02/25/24 15:15 Pulse Ox 98 02/25/24 15:15 Oxygen Delivery Method Room Air 02/25/24 15:15 BMI result Body Mass Index 30.8 Const General: comfortable and no acute distress Orientation/consciousness: patient oriented x3 HEENT Head: Yes normocephalic Mouth: Normal oral and palatal mucosa present Eyes EOM: EOMs intact bilaterally Neck Neck: Yes supple Resp Auscultation: clear to auscultation bilaterally Cardio Jugular venous distension: no JVD Rate: regular rate GI Palpation (GI): Soft to palpation Auscultation: normal bowel sounds General: Yes no CVA tenderness Back/Spine/Pelvis Back: no CVA tenderness Skin General skin exam: no rashes or lesions noted Neuro General: patient oriented x3 and moves all extremities Extrem General: Yes no pedal edema Assessment & Plan Assessment & Plan (1) CKD stage 4 due to type 2 diabetes mellitus: Code(s): E11.22 - Type 2 diabetes mellitus with diabetic chronic kidney disease; N18.4 - Chronic kidney disease, stage 4 (severe) (2) Hypertension: Code(s): I10 - Essential (primary) hypertension Qualifiers: Hypertension type: primary hypertension Qualified Code(s): I10 - Essential (primary) hypertension Plan Calos has 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 His blood pressure is better controlled and so is the blood sugar. He has history of proteinuria. All his serology and immunology as a part of CKD workup had been negative in the past. His last documented GFR by 24 hour urine collection was close to 35 mL/minute. He maintains good hydration and avoid NSAIDs. I did not make any medication changes today but ordered follow-up blood work. I answered all his questions. Follow-up appointment given. Orders: Orders Creatinine Today E11.22 - Type 2 diabetes mellitus with diabetic chronic kidney disease, N18.4 - Chronic kidney disease, stage 4 (severe) Blood Urea Nitrogen Today E11.22 - Type 2 diabetes mellitus with diabetic chronic kidney disease, N18.4 - Chronic kidney disease, stage 4 (severe) Electrolytes Today E11.22 - Type 2 diabetes mellitus with diabetic chronic kidney disease, N18.4 - Chronic kidney disease, stage 4 (severe) Coding Level of Care Code Est Pt Level 4 (23175) Diagnoses CKD stage 4 due to type 2 diabetes mellitus E11.22; N18.4 Primary hypertension I10 Hypertension type: primary hypertension Results Reviewed Nephrology Results: Hgb 10.9 g/dl (14.0-18.0) L 12/22/20 WBC 4.8 X10*3/uL (4.8-10.8) 12/22/20 Plt Count 244 X10*3/uL (160-400) 12/22/20 Sodium 133 mmol/L (135-145) L 12/22/20 Potassium 4.3 mmol/L (3.3-5.1) 12/22/20 Chloride 101 mmol/L (96-108) 12/22/20 Carbon Dioxide 19 mmol/L (22-29) L 12/22/20 BUN 60 mg/dL (9-16) H 12/22/20 Creatinine 3.45 mg/dL (0.5-1.4) H 12/22/20 Calcium 8.5 mg/dL (8.4-10.2) 12/22/20 Urine Protein 2+ MG/DL (NEG-TRACE) H 12/22/20
[2024-02-25 15:15] VITALS: BP 140/70; PULSE 74; O2SAT 98; BMI 30.8
== END 2024-02-25 15:43 | disposition home or self-care (01) ==
PROVIDERS: PCP Internal Medicine; Visit Provider Internal Medicine Nephrology
DX: E11.22 Type 2 diabetes mellitus with diabetic chronic kidney disease (principal); N18.4 Chronic kidney disease, stage 4 (severe); I12.9 Hypertensive chronic kidney disease with stage 1 through stage 4 chronic kidney disease, or unspecified chronic kidney disease
CPT/HCPCS: 99214

== ENCOUNTER → 2024-02-25 15:02 | Outpatient (BNVA) | payer OTHER, SELFPAY | PROVIDERS: PCP Internal Medicine; Visit Provider Internal Medicine Nephrology ==

== ENCOUNTER 2024-06-21 15:04 | Outpatient (AMB) | payer OTHER, SELFPAY ==
--- NOTE | 2024-06-21 15:05 | HO.NEPHOV_ITS ---
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 He follows up with his civil engineering designer for colitis . 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 His blood sugar is better control now. His blood pressure has been at goal. He is compliant with his medications. He denies chest pain, shortness of breath, proximal nocturnal dyspnea, orthopnea, pedal edema, hematuria, dysuria, frequency, night sweats, weight loss or orthostatic symptoms. He does not take any nonsteroidal anti-inflammatory medications. His HCTZ dosage has been increased to 25 mg due to fluctuant BP. He feels well. All other systems were reviewed and were negative. [facility] Medical History (Updated 11/26/23 @ 15:56 by Pedro Callaway MD) Diabetes CKD (chronic kidney disease) Colitis Surgical History History of neck surgery Family History Mother Cancer Social History Alcohol intake: never Patient Tobacco Use Status: Former Tobacco user Review of Systems Const All systems reviewed & are unremarkable except as noted in HPI and below Physical Exam Vital Signs: Last Vital Signs Pulse 77 06/21/24 15:06 BP 130/70 06/21/24 15:06 Pulse Ox 98 06/21/24 15:06 Oxygen Delivery Method Room Air 06/21/24 15:06 BMI result Body Mass Index 30.3 Const General: comfortable and no acute distress Orientation/consciousness: patient oriented x3 HEENT Head: Yes normocephalic Mouth: Normal oral and palatal mucosa present Eyes EOM: EOMs intact bilaterally Neck Neck: Yes supple Resp Auscultation: clear to auscultation bilaterally Cardio Jugular venous distension: no JVD Rate: regular rate GI Palpation (GI): Soft to palpation Auscultation: normal bowel sounds General: Yes no CVA tenderness Back/Spine/Pelvis Back: no CVA tenderness Skin General skin exam: no rashes or lesions noted Neuro General: patient oriented x3 and moves all extremities Extrem General: Yes no pedal edema Assessment & Plan Assessment & Plan (1) CKD stage 4 due to type 2 diabetes mellitus: Code(s): E11.22 - Type 2 diabetes mellitus with diabetic chronic kidney disease; N18.4 - Chronic kidney disease, stage 4 (severe) Category: Medical (2) Hypertension: Code(s): I10 - Essential (primary) hypertension Category: Medical Qualifiers: Hypertension type: primary hypertension Qualified Code(s): I10 - Essential (primary) hypertension Plan Calos has 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 I ordered follow up renal USS> His blood pressure is better controlled and so is the blood sugar. He has history of proteinuria. All his serology and immunology as a part of CKD workup had been negative in the past. His last documented GFR by 24 hour urine collection was close to 35 mL/minute. He maintains good hydration and avoid NSAIDs. I did not make any medication changes today but ordered follow-up blood work. I answered all his questions. Follow-up appointment given. Orders: Orders Electrolytes Today E11.22 - Type 2 diabetes mellitus with diabetic chronic kidney disease, N18.4 - Chronic kidney disease, stage 4 (severe) Creatinine 4 Months E11.22 - Type 2 diabetes mellitus with diabetic chronic kidney disease, N18.4 - Chronic kidney disease, stage 4 (severe) Electrolytes 4 Months E11.22 - Type 2 diabetes mellitus with diabetic chronic kidney disease, N18.4 - Chronic kidney disease, stage 4 (severe) Ferritin 4 Months E11.22 - Type 2 diabetes mellitus with diabetic chronic kidney disease, N18.4 - Chronic kidney disease, stage 4 (severe) IRON PROFILE 4 Months E11.22 - Type 2 diabetes mellitus with diabetic chronic kidney disease, N18.4 - Chronic kidney disease, stage 4 (severe) Complete Blood Count Auto Diff 4 Months E11. - Type 2 diabetes mellitus with diabetic chronic kidney disease, N18.4 - Chronic kidney disease, stage 4 (severe) Vitamin D 25-OH Total 4 Months E11. - Type 2 diabetes mellitus with diabetic chronic kidney disease, N18.4 - Chronic kidney disease, stage 4 (severe) Phosphorus 4 Months E11. - Type 2 diabetes mellitus with diabetic chronic kidney disease, N18.4 - Chronic kidney disease, stage 4 (severe) Creatinine Today . - Type 2 diabetes mellitus with diabetic chronic kidney disease, N18.4 - Chronic kidney disease, stage 4 (severe) Blood Urea Nitrogen Today . - Type 2 diabetes mellitus with diabetic chronic kidney disease, N18.4 - Chronic kidney disease, stage 4 (severe) Blood Urea Nitrogen 4 Months E11. - Type 2 diabetes mellitus with diabetic chronic kidney disease, N18.4 - Chronic kidney disease, stage 4 (severe) Parathyroid Hormone Intact 4 Months . - Type 2 diabetes mellitus with diabetic chronic kidney disease, N18.4 - Chronic kidney disease, stage 4 (severe) Coding Level of Care Code Est Pt Level 4 (05704) Diagnoses CKD stage 4 due to type 2 diabetes mellitus ; N18.4 Primary hypertension I10 Hypertension type: primary hypertension
[2024-06-21 15:06] VITALS: BP 130/70; PULSE 77; O2SAT 98; BMI 30.3
== END 2024-06-21 15:52 | disposition home or self-care (01) ==
PROVIDERS: PCP Internal Medicine; Visit Provider Internal Medicine Nephrology
DX: E11.22 Type 2 diabetes mellitus with diabetic chronic kidney disease (principal); N18.4 Chronic kidney disease, stage 4 (severe); I12.9 Hypertensive chronic kidney disease with stage 1 through stage 4 chronic kidney disease, or unspecified chronic kidney disease
CPT/HCPCS: 99214

== ENCOUNTER → 2024-06-21 15:04 | Outpatient (BNVA) | payer OTHER, SELFPAY | PROVIDERS: PCP Internal Medicine; Visit Provider Internal Medicine Nephrology ==

== ENCOUNTER 2024-06-22 07:07 | Outpatient (REF) | payer OTHER, SELFPAY ==
[2024-06-22 11:35] LABS: Anion Gap 12 (12-20); Blood Urea Nitrogen 36 mg/dL (9-16); Carbon Dioxide 21 mmol/L (22-29); Chloride 108 mmol/L (96-108); Estimated Glomerular Filt Rate 23; Potassium 4.9 mmol/L (3.3-5.1); Sodium 136 mmol/L (135-145)
== END 2024-06-22 07:08 | disposition home or self-care (01) ==
LOC: HO.10HDL 07:07
PROVIDERS: Visit Provider Internal Medicine Nephrology
DX: E11.22 Type 2 diabetes mellitus with diabetic chronic kidney disease (principal); N18.4 Chronic kidney disease, stage 4 (severe)
CPT/HCPCS: 36415; 80051; 82565; 84520

== ENCOUNTER 2024-12-29 14:35 | Outpatient (AMB) | payer OTHER, SELFPAY ==
--- NOTE | 2024-12-29 14:23 | HO.NEPHOV_ITS ---
Vital Signs 12/29/24 14:32 Height 5 ft 11 in Weight 220 lb 2 oz BMI 30.7 BP 110/60 Blood Pressure Location Rt brachial Position Sitting Intake Visit Reasons: Follow-up/ Conf Hide And Skin Classer Required: No Accompanied by: Self / Same As Patient Allergies aspirin [ASA] Allergy (Severe, Verified 12/29/24 14:31) CANNOT USE DUE TO CROHNS Penicillins [PENICILLINS] Allergy (Intermediate, Verified 12/29/24 14:31) VOMITING HPI Comments Details: Calos was seen in follow-up of his biopsy-proven diabetic chronic kidney disease stage IV. 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 His blood sugar is better control now. His blood pressure has been at goal. He is compliant with his medications. He denies chest pain, shortness of breath, proximal nocturnal dyspnea, orthopnea, pedal edema, hematuria, dysuria, frequency, night sweats, weight loss or orthostatic symptoms. He does not take any nonsteroidal anti- inflammatory medications. He feels well. All other systems were reviewed and were negative [facility] Medical History (Updated 11/26/23 @ 15:56 by Pedro Callaway MD) Diabetes CKD (chronic kidney disease) Colitis Surgical History History of neck surgery Family History Mother Cancer Social History Alcohol intake: never Patient Tobacco Use Status: Former Tobacco user Review of Systems Const All systems reviewed & are unremarkable except as noted in HPI and below Physical Exam Vital Signs: Last Vital Signs BP 110/60 12/29/24 14:32 BMI result Body Mass Index 30.7 Const General: comfortable and no acute distress Orientation/consciousness: patient oriented x3 HEENT Head: Yes normocephalic Mouth: Normal oral and palatal mucosa present Eyes EOM: EOMs intact bilaterally Neck Neck: Yes supple Resp Auscultation: clear to auscultation bilaterally Cardio Jugular venous distension: no JVD Rate: regular rate GI Palpation (GI): Soft to palpation Auscultation: normal bowel sounds General: Yes no CVA tenderness Back/Spine/Pelvis Back: no CVA tenderness Skin General skin exam: no rashes or lesions noted Neuro General: patient oriented x3 and moves all extremities Extrem General: Yes no pedal edema Assessment & Plan Assessment & Plan (1) CKD stage 4 due to type 2 diabetes mellitus: Code(s): E11.22 - Type 2 diabetes mellitus with diabetic chronic kidney disease; N18.4 - Chronic kidney disease, stage 4 (severe) Category: Medical (2) Hypertension: Code(s): I10 - Essential (primary) hypertension Category: Medical Qualifiers: Hypertension type: primary hypertension Qualified Code(s): I10 - Essential (primary) hypertension Plan Calos has 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 ( Stable GFR now). 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 His blood pressure is better controlled and so is the blood sugar. He has history of proteinuria. All his serology and immunology as a part of CKD workup had been negative in the past. His last documented GFR by 24 hour urine collection was close to 35 mL/minute. He maintains good hydration and avoid NSAIDs. I did not make any medication c hanges today but ordered follow-up blood work. I answered all his questions. Follow-up appointment given. Orders: Orders Blood Urea Nitrogen 4 Months E11.22 - Type 2 diabetes mellitus with diabetic chronic kidney disease, N18.4 - Chronic kidney disease, stage 4 (severe) Electrolytes 4 Months E11. - Type 2 diabetes mellitus with diabetic chronic kidney disease, N18.4 - Chronic kidney disease, stage 4 (severe) Creatinine 4 Months E11. - Type 2 diabetes mellitus with diabetic chronic kidney disease, N18.4 - Chronic kidney disease, stage 4 (severe) Calcium 4 Months E11. - Type 2 diabetes mellitus with diabetic chronic kidney disease, N18.4 - Chronic kidney disease, stage 4 (severe) Complete Blood Count Auto Diff 4 Months E11.22 - Type 2 diabetes mellitus with diabetic chronic kidney disease, N18.4 - Chronic kidney disease, stage 4 (severe) Parathyroid Hormone Intact 4 Months E11.22 - Type 2 diabetes mellitus with diabetic chronic kidney disease, N18.4 - Chronic kidney disease, stage 4 (severe) Vitamin D 25-OH Total 4 Months E11.22 - Type 2 diabetes mellitus with diabetic chronic kidney disease, N18.4 - Chronic kidney disease, stage 4 (severe) Coding Level of Care Code Est Pt Level 4 (18751) Diagnoses CKD stage 4 due to type 2 diabetes mellitus E11.22; N18.4 Primary hypertension I10 Hypertension type: primary hypertension
[2024-12-29 14:32] VITALS: BP 110/60; BMI 30.7
--- OUTSIDE RECORDS SUMMARY | 2024-12-29 14:37 | XMS_ITS | Encounter Summary ---
Author Organization [facility] Address [address] [place] [address] Care Team Providers Care Mold Breaker Name Role Phone Roly Curtis MD Primary Care Provider [phone] Reason for Referral * Consultation (Routine) - Pending Review Specialty Diagnoses / Procedures Referred By Nedra ca Referred To Contact Nephrology Diagnoses Stage 4 chronic kidney disease (CMS/HCC) Roly Curtis MD [address] [place] [id number] Phone: tel: fax: Referral ID Status Reason Start Date Expiration Date Visits Requested Visits Authorized [id number] Pending Review Specialty Services Required 12/22/2024 12/22/2025 1 1 Reason for Visit * Reason Onset Date Comments insurance referral 12/20/2024 Encounter Details Date Type Department Care Team (Late st Contact Info) Description 12/20/2024 Telephone Adult Medicine [address] [phone] Roly Curtis MD [address] [place] [phone] insurance referral Social History Tobacco Use Types Packs/Day Years Used Date Smoking Tobacco: Never Assessed Sex and Gender Information Value Date Recorded Sex Assigned at Not on file Legal Sex Male 8:08 AM EST Gender Identity Not on file Sexual Orientation Not on file documented as of this encounter Progress Notes * Roly Curtis MD - 12/22/2024 10:26 AM EST Please inform the patient that I placed an order for to see the aromatherapist. * Chucky Cerda - 12/20/2024 10:37 AM EST Mehdi from [facility] is calling requesting an insurance referral for this patient, the referral is for Chronic Kidney Disease please advise P [phone] F [phone] Appt for 12/29/[address] Kirill Callaway documented in this encounter Plan of Treatment Upcoming Encounters Date Type Department Care Team (Late st Contact Info) Description 01/12/2025 3:00 PM EST Office Visit Adult Medicine [address] [phone] Roly Curtis MD [address] [place] [phone] 06/11/2025 7:45 AM EDT Ancillary Procedure [facility] [address] [facility] [address] [place] [address] 06/18/2025 3:30 PM EDT Office Visit Vascular Surgery - [place] [address] [facility] [address] [place] [phone] Pennie Brooks PA [address] [facility] [address] [place] [address] Scheduled Referrals Name Type Priority Associated Diagnoses Order Schedule Ambulatory referral to Nephrology Outpatient Referral Routine Stage 4 chronic kidney disease (CMS/HCC) 1 Occurrences starting 12/22/2024 until 12/22/2025 documented as of this encounter Visit Diagnoses Diagnosis Stage 4 chronic kidney disease (CMS/HCC)- Primary documented in this encounter Care Teams Mold Breaker Relationship Specialty Start Date End Date Roly Curtis MD [address] [place] [id number] PCP - General Internal Medicine 11/23/24 documented as of this encounter
--- OUTSIDE RECORDS SUMMARY | 2024-12-29 14:37 | XMS_ITS | Clinical Summary ---
Author Organization [facility] [address] [facility] Address [address] [place] [phone] Phone Care Team Providers Care House Builder Name Role Phone Roly Curtis MD Primary Care Provider Allergies Active Allergy Reactions Criticality Noted Date Comments Aspirin 10/20/2024 Penicillin G Dermatitis,Rash 10/20/2024 Medications lisinopriL (PRINIVIL,ZESTR IL) 10 mg tablet TAKE 1 TABLET AT BEDTIME 90 tablet 1 09/20/20 24 Active rosuvastatin (CRESTOR) 10 mg tablet Take 1 tablet (10 mg total) by mouth 1 (one) time each day. 07/01/20 24 Active gabapentin (NEURONTIN) 300 mg capsule Take 1 capsule (300 mg total) by mouth at bedtime. 04/06/20 24 Active glipiZIDE (GLUCOTROL) 5 mg tablet Take 1 tablet (5 mg total) by mouth 1 (one) time each day. 08/08/20 24 Active amLODIPine (NORVASC) 5 mg tablet Take 1 tablet (5 mg total) by mouth 2 (two) times a day. 08/08/20 24 Active Tresiba FlexTouch U-100 100 unit/mL (3 mL) injection pen Inject 50 Units under the skin at bedtime. 07/12/20 24 Active meclizine (ANTIVERT) 12.5 mg tablet Take 1 tablet (12.5 mg total) by mouth 3 (three) times a day if needed for dizziness (vertigo). 07/07/20 24 Active lisinopriL (PRINIVIL,ZESTR IL) 10 mg tablet Take 1 tablet (10 mg total) by mouth at bedtime. 06/19/20 24 Active ciclopirox (LOPROX) 0.77 % cream Apply 1 Application topically 2 (two) times a day. APPLY TO AFFECTED AREA 10/11/20 23 Active azaTHIOprine (IMURAN) 50 mg tablet Take 1 tablet (50 mg total) by mouth 3 (three) times a day. 09/11/20 24 Active OneTouch Ultra Test test strip USE TO CHECK BLOOD SUGAR THREE TIMES A DAY Active BD Ultra-Fine Mini Pen Needle 31 gauge x 01/28 needle Inject 1 each under the skin 2 (two) times a day. as directed 200 each 1 11/30/19 25 Active clopidogreL (PLAVIX) 75 mg tablet Take 1 tablet (75 mg total) by mouth 1 (one) time each day. 90 tablet 1 11/30/19 25 Active folic acid (FOLVITE) 1 mg tablet Take 1 tablet (1,000 mcg total) by mouth 1 (one) time each day. 90 tablet 1 11/30/19 25 Active ferrous sulfate (FeroSuL) 325 mg (65 mg elemental iron) tablet Take 1 tablet (325 mg total) by mouth 1 (one) time each day. 90 tablet 1 11/30/19 25 Active hydroCHLOROthia zide (HYDRODIURIL) 50 mg tablet Take 1 tablet (50 mg total) by mouth 1 (one) time each day. 90 tablet 1 11/30/19 25 Active dulaglutide (Trulicity) 3 mg/0.5 mL pen injector injection Inject 0.5 mL (3 mg total) under the skin 1 (one) time per week. 6 mL 1 12/13/19 25 Active azaTHIOprine (IMURAN) 50 mg tabletIndicatio ns:Crohn's disease of colon without complication (CMS/HCC) Take 3 tablets (150 mg total) by mouth 1 (one) time each day. 270 each 3 12/12/19 25 026 Active Trulicity 3 mg/0.5 mL pen injector injection Inject 0.5 mL (3 mg total) under the skin 1 (one) time per week. 09/16/20 24 025 Discontinued Active Problems Problem Noted Date Diagnosed Date Anemia of chronic disease 10/11/2023 Vertebro basilar insufficiency 07/02/2023 Bilateral carotid artery stenosis 07/02/2023 Cervical spondylosis with radiculopathy 06/30/20 23 Syncope 06/04/2023 Stage 4 chronic kidney disease 05/17/2023 Type 2 diabetes mellitus wit h microalbuminuria, without long-term current use of insulin 03/24/2023 Primary hypertension 03/24/2023 Mixed hyperlipidemia 03/24/2023 Crohn's disease of small intestine without compl ication 03/24/2023 Peripheral neuropathy 03/24/2023 Osteoarthritis 03/24/2023 Regional enteritis 01/07/2021 Encounters Date Type Department Care Team Description 12/20/2024 Telephone Adult Medicine [facility] [address] [place] [id number] Roly Curtis MD insurance referral 12/12/2024 8:00 AM EST Office Visit Gastroenterology - [address] [facility] [address] [place] [address] Oksana Woods, BEADER TENDER Crohn's disease of colon without complication ([facility]) (Primary Dx) from Last 3 Months Immunizations Name Administration Dates Next Due COVID-19 (Moderna/Spikevax) 12yo and older 07/17/2024 Influenza Quadravalent, 0.5m l (Fluzone High-dose) 65yo and older 07/30/2023,08/13/2022,09/03/2021 Influenza, Unspecified 08/12/2023 Moderna SARS-CoV-2 COVID-19, mRNA, LNP-S, preservative free 08/13/2022,03/24/2022,09/09/2021,2020,02/18/2021 Pneumococcal conjugate 20 va lent (Prevnar 20, PCV 20) 2mo and older 10/11/2023 RSV, bivalent, protein subun it RSVpreF, 0.5mL, Preservative Free (Arexvy) 60yo and older 10/08/2024 Tdap Tetanus diptheria acell ular pertussis (Boostrix; Adacel) 7yo and older 07/10/2024 Zoster recombinant (Shingrix ) 19yo and older 10/08/2024,07/10/2024 Social History Tobacco Use Types Packs/Day Years Used Date Smoking Tobacco: Never Assessed Sex and Gender Information Value Date Recorded Sex Assigned at Not on file Legal Sex Male 8:08 AM EST Gender Identity Not on file Sexual Orientation Not on file Plan of Treatment Upcoming Encounters Date Type Department Care Team (Late st Contact Info) Description 01/12/2025 3:00 PM EST Office Visit Adult Medicine [facility] [address] [place] [address] Roly Curtis MD [address] [place] [address] 06/11/2025 7:45 AM EDT Ancillary Procedure [facility] [address] [facility] [address] [place] [address] 06/18/2025 3:30 PM EDT Office Visit Vascular Surgery - [place] [address] [facility] [address] [place] [address] Pennie Brooks PA [address] [facility] [address] [place] [address] Health Maintenance Due Date Last Done Comments Diabetes: Annual Foot Exam 1960 Depression Screening 10/18/2022 Falls Risk Assessment 10/18/2022 Hepatitis C Screening 10/18/2022 Medicare Annual Wellness Visit 10/18/2022 Social Influencers of Health Screening 10/18/2022 Influenza Vaccine (#1) 2024 , 07/30/2023, 08/13/2022, Additional history exists Diabetes: Blood Sugar Control Test (HGBA1C) 12/29/2024 06/28/2024, 04/03/2020 Diabetes: Annual Urine Albumin-Creatinine Ratio (uACR) 01/13/2025 01/14/2024 Diabetes: Annual Retina Eye Exam 06/09/2025 06/09/2024 Diabetes: Annual GFR (Glomerular Filtration Rate) 12/12/2025 12/12/2024, 06/28/2024 Hypertension/CHF/CAD Annual BMP Blood Test 12/12/2025 12/12/2024, 06/28/2024 Cholesterol Screening (Lipid Panel) 01/13/2029 01/14/2024 DTaP,Tdap,and Td Vaccines (2 - Td or Tdap) 07/10/2034 07/10/2024 Colorectal Cancer Screening: Colonoscopy 12/12/2034 12/12/2024 Pneumococcal Vaccine: 50+ Years Completed 10/11/2023 Abdominal Aortic Aneurysm (AAA) Screen Completed 10/27/2023 Colorectal Cancer Screening: Stool Based Tests (FOBT/FIT) Discontinued 02/11/2024 COVID-19 Vaccine Completed 07/17/2024, , 03/24/2022, Additional history exists RSV Immunization Patients 60+ Years Old Completed 10/08/2024 Zoster Vaccines Completed 10/08/2024, 07/10/2024 HIB Vaccines Aged Out No longer eligi ble based on patient's age to complete this topic HPV Vaccines Aged Out No longer eligi ble based on patient's age to complete this topic Hepatitis A Vaccines Aged Out No long er eligible based on patient's age to complete this topic Hepatitis B Vaccines Aged Out No long er eligible based on patient's age to complete this topic IPV Vaccines Aged Out No longer eligi ble based on patient's age to complete this topic MMR Vaccines Aged Out No longer eligi ble based on patient's age to complete this topic Meningococcal ACWY Vaccine Aged Out N o longer eligible based on patient's age to complete this topic Meningococcal B Vacine Aged Out No lo nger eligible based on patient's age to complete this topic RSV Immunization Patients Under 20 months Aged Out No longer eligible based on patient's age to complete this topic Varicella Vaccines Aged Out No longer eligible based on patient's age to complete this topic Procedures Procedure Name Priority Date/Time Associated Diagnosis Comments COLONOSCOPY Routine 12/12/2024 11:03 AM EST CBC WITH AUTO DIFFERENTIAL Routine 12/12/2024 9:22 AM EST Crohn's disease of colon without complication (CMS/HCC) C-REACTIVE PROTEIN Routine 12/12/2024 9: 22 AM EST Crohn's disease of colon without complication (CMS/HCC) CBC AND DIFFERENTIAL Routine 12/12/2024 9:22 AM EST Crohn's disease of colon without complication (CMS/HCC) COMPREHENSIVE METABOLIC PANEL Routine 12/12/2024 9:22 AM EST Crohn's disease of colon without complication (CMS/HCC) HEMOGLOBIN A1C Routine 06/28/2024 HM DIABETES EYE EXAM Routine 06/09/2024 HM STOOL BASED TEST Routine 02/11/2024 HM URINE ALBUMIN CREATININE RATIO Routine 01/14/2024 LIPID PANEL Routine 01/14/2024 HM ABDOMINAL AORTIC ANEURYSM SCRREN Routine 10/27/2023 from Last 3 Months or Most Recently Relevant to Health Maintenance Results * COLONOSCOPY (12/12/2024 11:03 AM EST) Anatomical Region Laterality Modality Endoscopy us Historical Provider GI~PROCEDURE ORDERABLES F inal Result * (ABNORMAL) CBC auto differential (12/12/2024 9:22 AM EST) WBC 9.2 4.8 - 10.8 K/mcL LAB HEMETOLOGY METHOD 12/12/2024 10:30 AM [facility] RBC 3.10(L) 4.50 - 5.50 M/mcL LAB HEMETOLOGY METHOD 12/12/2024 10:30 AM [facility] Hemoglobin 10.3(L) 13.5 - 17.5 g/dL LAB HEMETOLOGY METHOD 12/12/2024 10:30 AM [facility] Hematocrit 30.1(L) 42.0 - 54.0 % LAB HEMETOLOGY METHOD 12/12/2024 10:30 AM [facility] MCV 97.1 79.0 - 98.0 FL LAB HEMETOLOGY METHOD 12/12/2024 10:30 AM [facility] MCH 33.2(H) 27.0 - 32.0 pcg LAB HEMETOLOGY METHOD 12/12/2024 10:30 AM [facility] MCHC 34.2 32.0 - 37.0 g/dL LAB HEMETOLOGY METHOD 12/12/2024 10:30 AM [facility] RDW 15.6(H) 11.0 - 15.0 % LAB HEMETOLOGY METHOD 12/12/2024 10:30 AM [facility] Platelets 245 130 - 400 K/mcL LAB HEMETOLOGY METHOD 12/12/2024 10:30 AM [facility] MPV 10.6 7.0 - 11.0 FL LAB HEMETOLOGY METHOD 12/12/2024 10:30 AM [facility] NRBC 0.4 <1.0 % LAB HEMETOLOGY METHOD 12/12/2024 10:30 AM [facility] NRBC Absolute 0.04 <0.10 K/mcL LAB HEMETOLOGY METHOD 12/12/2024 10:30 AM [facility] Neutrophils Relative 61.2 % LAB HEMETOLOGY METHOD 12/12/2024 10:30 AM [facility] Lymphocytes Relative 20.6 % LAB HEMETOLOGY METHOD 12/12/2024 10:30 AM [facility] Monocytes Relative 9.4 % LAB HEMETOLOGY METHOD 12/12/2024 10:30 AM [facility] Eosinophils Relative 7.3 % LAB HEMETOLOGY METHOD 12/12/2024 10:30 AM [facility] Basophils Relative 0.7 % LAB HEMETOLOGY METHOD 12/12/2024 10:30 AM [facility] Immature Granulocytes Relative 0.8 % LAB HEMETOLOGY METHOD 12/12/2024 10:30 AM EST [facility] Neutrophils Absolute 5.64 1.50 - 7.00 K/[facility] LAB HEMETOLOGY METHOD 12/12/2024 10:30 AM EST [facility] Lymphocytes Absolute 1.90 1.00 - 5.00 K/mcL LAB HEMETOLOGY METHOD 12/12/2024 10:30 AM EST [facility] Monocytes Absolute 0.87 0.20 - 1.00 K/[facility] LAB HEMETOLOGY METHOD 12/12/2024 10:30 AM EST [facility] Eosinophils Absolute 0.67(H) 0.00 - 0.50 K/[facility] LAB HEMETOLOGY METHOD 12/12/2024 10:30 AM EST [facility] Basophils Absolute 0.06 0.00 - 0.20 K/mcL LAB HEMETOLOGY METHOD 12/12/2024 10:30 AM EST [facility] Immature Granulocytes Absolute 0.07(H) 0.00 - 0.03 K/[facility] LAB HEMETOLOGY METHOD 12/12/2024 10:30 AM EST [facility] Blood Venous blood specimen / Unknown Venipuncture / Unknown 12/12/2024 9:22 AM EST 12/12/2024 10:08 AM EST Oksana Woods NP LAB BLOOD ORDERABLES Final Re sult [facility] [address] [place] [address], * C-reactive protein (12/12/2024 9:22 AM EST) C-Reactive Protein <0.29 <=0.50 mg/dL LAB CHEMISTRY METHOD 12/12/2024 10:55 AM EST [facility] Blood Venous blood specimen / Unknown Venipuncture / Unknown 12/12/2024 9:22 AM EST 12/12/2024 10:09 AM EST us Oksana Woods BEADER TENDER LAB BLOOD ORDERABLES Final Re sult [facility] [address] [place] [address], * (ABNORMAL) Comprehensive metabolic panel (12/12/2024 9:22 AM EST) Sodium 134 133 - 145 mmol/L LAB CHEMISTRY METHOD 12/12/2024 10:55 AM EST [facility] Potassium 5.3 3.5 - 5.5 mmol/L LAB CHEMISTRY METHOD 12/12/2024 10:55 AM [facility] Chloride 106 96 - 110 mmol/L LAB CHEMISTRY METHOD 12/12/2024 10:55 AM [facility] CO2 23 21 - 32 mmol/L LAB CHEMISTRY METHOD 12/12/2024 10:55 AM [facility] Anion Gap 5 3 - 11 LAB CHEMISTRY METHOD 12/12/2024 10:55 AM [facility] Glucose 201(H) 70 - 100 mg/dL LAB CHEMISTRY METHOD 12/12/2024 10:55 AM [facility] BUN 35(H) 5 - 25 mg/dL LAB CHEMISTRY METHOD 12/12/2024 10:55 AM [facility] Creatinine 2.70(H) 0.70 - 1.30 mg/dL LAB CHEMISTRY METHOD 12/12/2024 10:55 AM [facility] eGFR 24(L) >=60 mL/min/1. 73m2 LAB CHEMISTRY METHOD 12/12/2024 10:55 AM [facility] Comment:Calculation based on the??Chronic Kidney Disease Epidemiology Collaboration (CKD-EPI) equation refit??without adjustment for race. BUN/Creatinine Ratio 13.0 LAB CHEMISTRY METHOD 12/12/2024 10:55 AM [facility] Calcium 8.6 8.5 - 10.5 mg/dL LAB CHEMISTRY METHOD 12/12/2024 10:55 AM [facility] AST (SGOT) 20 10 - 42 unit/L LAB CHEMISTRY METHOD 12/12/2024 10:55 AM [facility] ALT (SGPT) 21 10 - 60 unit/L LAB CHEMISTRY METHOD 12/12/2024 10:55 AM [facility] Alkaline Phosphatase 71 42 - 121 unit/L LAB CHEMISTRY METHOD 12/12/2024 10:55 AM [facility] Total Protein 7.3 6.0 - 8.0 g/dL LAB CHEMISTRY METHOD 12/12/2024 10:55 AM [facility] Albumin 3.8 3.2 - 5.0 g/dL LAB CHEMISTRY METHOD 12/12/2024 10:55 AM [facility] Total Bilirubin 0.3 0.0 - 1.4 mg/dL LAB CHEMISTRY METHOD 12/12/2024 10:55 AM [facility] Blood Venous blood specimen / Unknown Venipuncture / Unknown 12/12/2024 9:22 AM EST 12/12/2024 10:09 AM EST Oksana Woods BEADER TENDER LAB BLOOD ORDERABLES Final Re sult [facility] [address] [place] [address], * (ABNORMAL) Hemoglobin A1c (06/28/2024) Hemoglobin A1C 8.2(A) <=6.5 % Blood Venous blood specimen / Unknown Historical Provider LAB BLOOD ORDERABLES Ruth l Result * Diabetes Eye Exam (06/09/2024) Diabetes: Annual Retina Eye Exam Abstracted Historical Provider HEALTH MAINTENANCE Final Result * Stool Based Tests (FOBT/FIT) (02/11/2024) Pathologist [facility] Colorectal Cancer Screening: Stool Based Tests Negative, Abstracted Historical Provider HEALTH MAINTENANCE Final Result * Urine Albumin Creatinine Ratio (01/14/2024) Pathologist [facility] Urine Albumin Creatinine Ratio Abstracted Historical Provider HEALTH MAINTENANCE Final Result * (ABNORMAL) Lipid panel (01/14/2024) [facility] LDL/HDL Ratio 4 0 - 4 Triglycerides 293(A) 0 - 150 mg/dL Cholesterol 147 0 - 200 mg/dL HDL 37(A) >=40 mg/dL LDL Cholesterol 52 0 - 100 mg/dL Blood Venous blood specimen / Unknown Result [facility] Historical Provider LAB BLOOD ORDERABLES Ruth l Result * Abdominal Aortic Aneurysm Screen (10/27/2023) [facility] Abdominal Aortic Aneurysm (AAA) Screening Abstracted Anatomical Region Laterality Modality Other Historical Provider HEALTH MAINTENANCE Final Result from Last 3 Months or Most Recently Relevant to Health Maintenance Insurance [place] [address] Advance Directives Documents on File Type Date Recorded Patient Account Auditor Expl anation Health Care Decision (hx) 02/28/2015 AD GALVAN DIRECTIVE Health Care Decision (hx) 02/28/2015 AD GALVAN DIRECTIVE Health Care Decision (hx) 02/28/2015 AD GALVAN DIRECTIVE Health Care Decision (hx) 02/28/2015 AD GALVAN DIRECTIVE Health Care Decision (hx) 02/28/2015 AD GALVAN DIRECTIVE Health Care Decision (hx) 02/28/2015 AD GALVAN DIRECTIVE Health Care Decision (hx) 02/28/2015 AD GALVAN DIRECTIVE Health Care Decision (hx) 02/28/2015 AD GALVAN DIRECTIVE Health Care Decision (hx) 02/28/2015 AD GALVAN DIRECTIVE Health Care Decision (hx) 02/28/2015 AD GALVAN DIRECTIVE Health Care Decision (hx) 02/28/2015 AD GALVAN DIRECTIVE Health Care Decision (hx) 02/28/2015 AD GALVAN DIRECTIVE Health Care Decision (hx) 02/28/2015 AD GALVAN DIRECTIVE Health Care Decision (hx) 02/28/2015 AD GALVAN DIRECTIVE Care Teams House Builder Relationship Specialty Start Date End Date Roly Curtis MD [address] [place] [id number] PCP - General Internal Medicine 11/23/24
--- OUTSIDE RECORDS SUMMARY | 2024-12-29 14:37 | XMS_ITS | Clinical Summary ---
Author Organization [facility] Facility Address [address] [address] Care Team Providers Care Tetryl Nitrator Operator Name Role Phone Roly Curtis MD Primary Care Provider [phone] Allergies Active Allergy Reactions Criticality Noted Date Comments Aspirin Other (see comments) 01/07/2021 Penicillins 01/07/2021 Medications amLODIPine (NORVASC) 10 MG tablet Take 5 mg by mouth 1 (one) time each day Active azaTHIOprine (IMURAN) 50 MG tablet Take 3 tablets by mouth 1 (one) time each day Active gabapentin (NEURONTIN) 300 MG capsule Take 1 capsule by mouth if needed Active glipiZIDE (GLUCOTROL) 5 MG tablet Take 1 tablet by mouth 1 (one) time each day Active hydroCHLOROthia zide (HYDRODIURIL) 12.5 MG tablet Take 1 tablet by mouth 1 (one) time each day Active lisinopril (PRINIVIL,ZESTR IL) 10 MG tablet Take 1 tablet by mouth 2 (two) times a day Active rosuvastatin (CRESTOR) 5 MG tablet Take 10 mg by mouth 1 (one) time each day Active Trulicity 3 MG/0.5ML solution pen-injector INJECT 1 PEN UNDER THE SKIN ONCE PER WEEK 03/24/2023 Active Tresiba FlexTouch 100 UNIT/ML injection 60 Units 04/01/2023 Active ergocalciferol 1.25 MG (74847 UT) capsule Take 50,000 Units by mouth 1 (one) time per week Active Active Problems Problem Noted Date Diagnosed Date Hypertension 04/13/2023 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 Chronic kidney disease, stage 4 (severe) 021 Crohn's disease 01/07/2021 Hyperlipidemia 01/07/2021 Hypertensive disorder 01/07/2021 Type 2 diabetes mellitus 01/07/2021 Social History Tobacco Use Types Packs/Day Years Used Date Smoking Tobacco: Former Cigarettes Q uit: 11/15/1992 Smokeless Tobacco: Former Alcohol Use Standard Drinks/Week Comments Yes 0 (1 standard drink = 0.6 oz pure alcohol) Alcoholic Drinks/day: Occasional social drink Sex and Gender Information Value Date Recorded Sex Assigned at Not on file Legal Sex Male 5:15 PM EST Gender Identity Not on file Sexual Orientation Not on file Last Filed Vital Signs Vital Sign Reading Time Taken Comments Blood Pressure 135/60 04/13/2023 4:43 PM EDT Pulse 66 04/13/2023 4:43 PM EDT Temperature - - Respiratory Rate - - Oxygen Saturation 98% 04/13/2023 4:43 PM EDT Inhaled Oxygen Concentration - - Weight 102 kg (225 lb) 04/13/2023 4:43 PM EDT Height 180.3 cm (5' 11 ) 02/13/2020 12:00 PM EDT Body Mass Index 31.38 02/13/2020 12:00 PM EDT Plan of Treatment Health Maintenance Due Date Last Done Comments Pneumococcal Vaccine: 65+ Ye ars (1 of 2 - PCV) 1955 Colorectal Cancer Screening: Annual FOBT 1998 Colorectal Cancer Screening: Colonoscopy 1998 Colorectal Cancer Screening: Sigmoidoscopy 1998 Diabetes: Hemoglobin A1C 12/15/2020 04/03/2020 Diabetes: Ophthalmology Exam 12/15/2020 Diabetes: Pedal Pulse Checked 12/15/2020 Diabetes: Sensory Foot Exam 12/15/2020 Diabetes: Visual Foot Exam 12/15/2020 Influenza Vaccine (#1) 2024 Hepatitis B Vaccine Aged Out No longe r eligible based on patient's age to complete this topic Procedures Procedure Name Priority Date/Time Associated Diagnosis Comments HEMOGLOBIN A1C Routine 04/03/2020 12:00 AM EDT from Last 3 Months or Most Recently Relevant to Health Maintenance Results * (ABNORMAL) Hemoglobin A1c (04/03/2020 12:00 AM EDT) Hemoglobin A1C 8.8(H) <5.7 % of total Hgb [facility] Comment: For someone without known diabetes, a hemoglobin A1c value of 6.5% or greater indicates that they may have diabetes and this should be confirmed with a follow-up test. For someone with known diabetes, a value <7% indicates that their diabetes is well controlled and a value greater than or equal to 7% indicates suboptimal control. A1c targets should be individualized based on duration of diabetes, age, comorbid conditions, and other considerations. Currently, no consensus exists regarding use of hemoglobin A1c for diagnosis of diabetes for children. 04/03/2020 Myron Gallagher MD LAB BLOOD ORDERABLES Final Result [facility] from Last 3 Months or Most Recently Relevant to Health Maintenance Insurance [employer] C[employer] Care Teams Tetryl Nitrator Operator Relationship Specialty Start Date End Date Roly Curtis MD [address] [place] [id number] PCP - [facility] 04/13/23
--- OUTSIDE RECORDS SUMMARY | 2024-12-29 14:37 | XMS_ITS | Encounter Summary ---
Author Organization [facility] Address [address] [place] [address] Care Team Providers Care Chief Program Officer Name Role Phone Roly Curtis MD Primary Care Provider [phone] Encounter Details Date Type Department Care Team ([facility] st Contact Info) Description 12/12/2024 8:00 AM EST Office Visit Gastroenterology - [address] [phone] Oksana Woods NP [address] [id number] Crohn's disease of colon without complication (CMS/HCC) (Primary Dx) Social History Tobacco Use Types Packs/Day Years Used Date Smoking Tobacco: Never Assessed Sex and Gender Information Value Date Recorded Sex Assigned at Not on file Legal Sex Male 8:08 AM EST Gender Identity Not on file Sexual Orientation Not on file documented as of this encounter Ordered Prescriptions Prescription Sig Dispense Quantity Refills Last Filled Start Date End Date azaTHIOprine (IMURAN) 50 mg tabletIndications: Crohn's disease of colon without complication (CMS/HCC) Take 3 tablets (150 mg total) by mouth 1 (one) time each day. 270 each 3 12/12/2024 documented in this encounter Progress Notes * Oksana Woods NP - 12/12/2024 8:00 AM EST CHIEF COMPLAINT: Crohns colitis DATE OF LAST ENDOSCOPIC PROCEDURES: 09/2022 Colonoscopy 3 yr recall HPI: Prashant Silva is a 74 y.o. old male who was originally referred to us by Roly Curtis MD now presents to the gastroenterology department today for a follow up of his Crohns. He tells mehe has an ache in his intestines after bowel movements which lasts about 5 minutes. He denies rectal bleeding. He typically has one BM daily and this discomfort is associated with hard stools when heis more constipated. He just retired and is less active now. We discussed adding a small dose of Miralax to help prevent constipation. His weight is stable and he has no upper GI issues. He will be due for colonoscopy in September and we will see him back in 6 months. His Azathioprine was renewed today. ROS: GENERAL: No malaise, significant weight loss or fever HEENT: No changes in hearing or vision or swallowing problems RESPIRATORY: No cough, wheezing or shortness of breath CARDIOVASCULAR: No chest pain, leg swelling or palpitations GI: See H&P The remainder of the review of systems is reviewed and negative. PAST MEDICAL HISTORY: Crohns colitis X35+ yrs Colon polyps HTN Hyperlipidemia CKDIV Dr Agarwal DM IgM monoclonal gammopathy Renal cell CA RA Carotid stenosis PAST SURGICAL HISTORY: Cervical spine surgery SOCIAL HISTORY: No tobacco over 20 yrs Social EtOH FAMILY HISTORY: No family history on file. ACTIVE MEDICATIONS: Amlodipine 5 mg QD Azathioprine 150mg QD Plavix 75mg QD Fe 325 QD Folic Acid 1mg QD Glipizide 5mg QD HCTZ 50mg QD Lisinopril 10mg QD Crestor 10mg QD Trulicity Tresiba 50 units nightly ALLERGIES: Allergies Allergen Reactions Aspirin Penicillin G Dermatitis and Rash PHYSICAL EXAM: There were no vitals taken for this visit. APPEARANCE: Alert and in no acute distress EYES: PERRLA, conjunctiva and sclera normal. HEART: RRR with normal S1 and S2, no murmurs appreciated LUNG: clear to auscultation ABDOMEN: nontender without masses NEURO: Awake, alert and oriented x 3 Assessment & Plan Crohn's disease of colon without complication (CMS/HCC) Orders: Comprehensive metabolic panel; Future CBC and differential; Future C-reactive protein; Future azaTHIOprine (IMURAN) 50 mg tablet; Take 3 tablets (150 mg total) by mouth 1 (one) time each day. OV 6 months I would like to thank Roly Curtis MD for the opportunity to partake in the patient's care. Board Certified Gastroenterology [facility] [phone] 299 [facility] [address] [place] [address] [email or web address] Oksana Woods NP documented in this encounter Plan of Treatment Upcoming Encounters Date Type Department Care Team (Late st Contact Info) Description 01/12/2025 3:00 PM EST Office Visit Adult Medicine [facility] [address] [place] [phone] Roly Cutris MD [address] [place] [address] 06/11/2025 7:45 AM EDT Ancillary Procedure [facility] [address] [facility] [address] [place] [phone] 06/18/2025 3:30 PM EDT Office Visit Vascular Surgery - [place] 300 [facility] [address] [place] [address] Pennie Brooks PA 300 [facility] [address] [place] [address] documented as of this encounter Results * C-reactive protein (12/12/2024 9:22 AM EST) C-Reactive Protein <0.29 <=0.50 mg/dL LAB CHEMISTRY METHOD 12/12/2024 10:55 AM EST [facility] Blood Venous blood specimen / Unknown Venipuncture / Unknown 12/12/2024 9:22 AM EST 12/12/2024 10:09 AM EST us Oksana Woods NP LAB BLOOD ORDERABLES Final Re sult [facility]) [facility] [address] [place] [address], [place] [phone] * (ABNORMAL) Comprehensive metabolic panel (12/12/2024 9:22 AM EST) Sodium 134 133 - 145 mmol/L LAB CHEMISTRY METHOD 12/12/2024 10:55 AM [facility] Potassium 5.3 3.5 - 5.5 mmol/L LAB CHEMISTRY METHOD 12/12/2024 10:55 AM [facility] Chloride 106 96 - 110 mmol/L LAB CHEMISTRY METHOD 12/12/2024 10:55 AM [facility] CO2 23 21 - 32 mmol/L LAB CHEMISTRY METHOD 12/12/2024 10:55 AM [facility] Anion Gap 5 3 - 11 LAB CHEMISTRY METHOD 12/12/2024 10:55 AM [facility] Glucose 201(H) 70 - 100 mg/dL LAB CHEMISTRY METHOD 12/12/2024 10:55 AM [facility] BUN 35(H) 5 - 25 mg/dL LAB CHEMISTRY METHOD 12/12/2024 10:55 AM [facility] Creatinine 2.70(H) 0.70 - 1.30 mg/dL LAB CHEMISTRY METHOD 12/12/2024 10:55 AM [facility] eGFR 24(L) >=60 mL/min/1. 73m2 LAB CHEMISTRY METHOD 12/12/2024 10:55 AM [facility] Comment:Calculation based on the??Chronic Kidney Disease Epidemiology Collaboration (CKD-EPI) equation refit??without adjustment for race. BUN/Creatinine Ratio 13.0 LAB CHEMISTRY METHOD 12/12/2024 10:55 AM [facility] Calcium 8.6 8.5 - 10.5 mg/dL LAB CHEMISTRY METHOD 12/12/2024 10:55 AM [facility] AST (SGOT) 20 10 - 42 unit/L LAB CHEMISTRY METHOD 12/12/2024 10:55 AM [facility] ALT (SGPT) 21 10 - 60 unit/L LAB CHEMISTRY METHOD 12/12/2024 10:55 AM EST [facility] Alkaline Phosphatase 71 42 - 121 unit/L LAB CHEMISTRY METHOD 12/12/2024 10:55 AM [facility] Total Protein 7.3 6.0 - 8.0 g/dL LAB CHEMISTRY METHOD 12/12/2024 10:55 AM EST [facility] Albumin 3.8 3.2 - 5.0 g/dL LAB CHEMISTRY METHOD 12/12/2024 10:55 AM [facility] Total Bilirubin 0.3 0.0 - 1.4 mg/dL LAB CHEMISTRY METHOD 12/12/2024 10:55 AM [facility] Blood Venous blood specimen / Unknown Venipuncture / Unknown 12/12/2024 9:22 AM EST 12/12/2024 10:09 AM EST us Oksana Woods CLINICAL DATA ASSOCIATE LAB BLOOD ORDERABLES Final Re sult [facility] [address] [place] [address], documented in this encounter Visit Diagnoses Diagnosis Crohn's disease of colon without complication (CMS/HCC)- Primary documented in this encounter Care Teams Chief Program Officer Relationship Specialty Start Date End Date Roly Curtis MD [address] [place] [address] PCP - General Internal Medicine 11/23/24 documented as of this encounter
== END 2024-12-29 14:55 | disposition home or self-care (01) ==
PROVIDERS: PCP Internal Medicine; Visit Provider Internal Medicine Nephrology
DX: E11.22 Type 2 diabetes mellitus with diabetic chronic kidney disease (principal); N18.4 Chronic kidney disease, stage 4 (severe); I12.9 Hypertensive chronic kidney disease with stage 1 through stage 4 chronic kidney disease, or unspecified chronic kidney disease
CPT/HCPCS: 99214

== ENCOUNTER → 2024-12-29 14:35 | Outpatient (BNVA) | payer OTHER, SELFPAY | PROVIDERS: PCP Internal Medicine; Visit Provider Internal Medicine Nephrology ==

== ENCOUNTER 2025-04-27 08:26 | Outpatient (REF) | payer OTHER, SELFPAY ==
--- OUTSIDE RECORDS SUMMARY | 2025-04-27 08:32 | XMS_ITS | Clinical Summary ---
Author Organization [facility] Address [address] [place] [address] Care Team Providers Care Medical Assistant Prn Name Role Phone Aileen Myron Primary Care Provider [phone] Allergies Active Allergy Reactions Criticality Noted Date Comments Aspirin 01/03/2021 Penicillins 01/03/2021 Medications dulaglutide (Trulicity) 1.5 mg/0.5 mL pen injector Inject 1.5 mL under the skin per week. Active insulin glargine,hum.rec .anlog (BASAGLAR KWIKPEN U-100 INSULIN SUBQ) Inject 55 Units under the skin 1 (one) time each day. Active glipiZIDE (GLUCOTROL) 5 mg tablet Take 5 mg by mouth 1 (one) time each day. Active amLODIPine (NORVASC) 5 mg tablet Take by mouth 2 (two) times a day. Active azaTHIOprine (IMURAN) 50 mg tablet Take 50 mg by mouth 3 (three) times a day. Active rosuvastatin (CRESTOR) 10 mg tablet Take 10 mg by mouth 1 (one) time each day. Active gabapentin (NEURONTIN) 300 mg capsule Take 300 mg by mouth 1 (one) time each day. Active Active Problems Problem Noted Date Diagnosed Date Type 2 diabetes mellitus wit h kidney complication, with long-term current use of insulin 01/09/2021 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 Stage 4 chronic kidney disease 01/09/2021 Hypercholesteremia 01/09/2021 Family History Relation Status Comments Father Mother Social History Tobacco Use Types Packs/Day Years Used Date Smoking Tobacco: Former Smokeless Tobacco: Never Alcohol Use Standard Drinks/Week Comments Yes 0 (1 standard drink = 0.6 oz pur e alcohol) AUDIT-C Answer Date Recorded Q1: How often do you have a drink containing alc ohol? Monthly or less 01/09/2021 Average Number of Drinks Not on file 021 Frequency of Binge Drinking Not on file 12/17 PHQ-2 Answer Date Recorded Patient Health Questionnaire-2 Score 0 01/03/2021 Sex and Gender Information Value Date Recorded Sex Assigned at Not on file Legal Sex Male 8:47 AM MST Gender Identity Not on file Sexual Orientation Not on file Last Filed Vital Signs Vital Sign Reading Time Taken Comments Blood Pressure 151/60 01/09/2021 10:57 AM EST Pulse 90 01/09/2021 10:57 AM EST Temperature 36.2 ??C (97.1 ??F) 01/09/2021 11:[address] Respiratory Rate 16 01/09/2021 10:57 AM EST Oxygen Saturation 98% 01/09/2021 10:57 AM EST Inhaled Oxygen Concentration - - Weight 91.6 kg (202 lb) 01/09/2021 10:57 AM EST Height 175.7 cm (5' 9.17 ) 01/03/2021 11:[address] Body Mass Index 29.68 01/03/2021 11:12 AM EST Plan of Treatment Health Maintenance Due Date Last Done Comments CT Colonography 1949 Cologuard 1949 FOBT/FIT 1950 Hepatitis C Screening 1950 Sigmoidoscopy 1949 COVID-19 Vaccine (#1) 1954 PHQ-9 Depression Screen 1961 Complete Annual HRA 1967 CHAS-7 Anxiety Screen 1967 DTaP,Tdap,and Td Vaccines (1 - Tdap) 1968 Pneumococcal Vaccine: 50+ Ye ars (1 of 2 - PCV) 1968 Zoster Vaccines (1 of 2) 1968 Annual Preventive Exam 08/13/2021 0, 04/03/2019, 03/07/2018 RSV Vaccine (SCDM) (1 - 1-do se 75+ series) 2024 Influenza Vaccine (Season Ended) 2025 Colonoscopy 05/23/2029 05/23/2019 Colorectal Cancer Screening 05/23/2029 Insurance [employer] Care Teams Medical Assistant Prn Relationship Specialty Start Date End Date Myron Gallagher PCP - General 01/03/21
[2025-04-27 09:56] LABS: MANUAL DIFF FLAG NO
[2025-04-27 10:10] LABS: Basophils Absolute Auto 0.1 X10*3/uL (0.0-0.2); Basophils Percent Auto 0.8 % (0-2); Eosinophils Absolute Auto 0.6 X10*3/uL (0.0-0.4); Eosinophils Percent Auto 6.4 % (0-4); Hematocrit 30.5 % (42.0-52.0); Hemoglobin 10.6 g/dl (14.0-18.0); Imm Gran Abs Auto 0.07 X10*3/uL (0.00-0.03); Imm Gran Pct Auto 0.8 % (0.0-0.4); Lymphocytes Absolute Auto 1.6 X10*3/uL (1.2-4.9); Lymphocytes Percent Auto 18.9 % (20-40); Mean Corpuscular HGB Conc 34.8 g/dl (31.0-36.0); Mean Corpuscular Hemoglobin 34.1 pg (27.0-33.0); Mean Corpuscular Volume 98.1 fL (80.0-98.0); Mean Platelet Volume 11.1 fL (9.4-12.4); Monocytes Absolute Auto 0.9 X10*3/uL (0.1-1.2); Monocytes Percent Auto 10.8 % (2-11); NRBC Pct Auto 0.2 /100WBC (0.0-0.2); Neutrophils Absolute Auto 5.4 x10*3/uL (2.0-8.3); Neutrophils Percent Auto 62.3 % (45-73); Platelet Count 246 X10*3/uL (160-400); Red Blood Count 3.11 X10*6/uL (4.60-5.80); Red Cell Distribution Width 15.2 % (11.0-16.0); White Blood Count 8.6 X10*3/uL (4.8-10.8)
[2025-04-27 10:43] LABS: Parathyroid Hormone Intact 366.9 pg/mL (8.7-77.1)
[2025-04-27 11:07] LABS: Anion Gap 13 (12-20); Blood Urea Nitrogen 39 mg/dL (9-16); Carbon Dioxide 19 mmol/L (22-29); Chloride 109 mmol/L (96-108); Estimated Glomerular Filt Rate 25; Potassium 4.8 mmol/L (3.3-5.1); Sodium 136 mmol/L (135-145)
== END 2025-04-27 08:27 | disposition home or self-care (01) ==
LOC: HO.10HDL 08:26
PROVIDERS: Visit Provider Internal Medicine Nephrology
DX: E11.22 Type 2 diabetes mellitus with diabetic chronic kidney disease (principal); N18.4 Chronic kidney disease, stage 4 (severe)
CPT/HCPCS: 36415; 80051; 82306; 82310; 82565; 83970; 84520; 85025

== ENCOUNTER 2025-05-02 13:48 | Outpatient (AMB) | payer OTHER, SELFPAY ==
--- NOTE | 2025-05-02 13:56 | HO.NEPHOV ---
Vital Signs 05/02/25 14:01 Height 5 ft 11 in Weight 221 lb 2 oz BMI 30.8 BP 134/70 Blood Pressure Location Rt brachial Position Sitting Pulse 99 Pulse Source Pulse Oximeter Pulse Oximetry (%) 97 Oxygen Delivery Method Room Air Intake Visit Reasons: CKD-Conf Information Services Assistant Required: No Accompanied by: Self / Same As Patient Allergies aspirin (ASA) Allergy (Severe, Verified 05/02/25 14:01) CANNOT USE DUE TO CROHNS Penicillins (PENICILLINS) Allergy (Intermediate, Verified 05/02/25 14:01) VOMITING HPI Comments Details: Calos was seen in follow-up of his biopsy-proven diabetic chronic kidney disease stage IV. 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 His blood sugar is better control now. His blood pressure has been at goal. He is compliant with his medications. He denies chest pain, shortness of breath, proximal nocturnal dyspnea, orthopnea, pedal edema, hematuria, dysuria, frequency, night sweats, weight loss or orthostatic symptoms. He does not take any nonsteroidal anti-inflammatory medications. He feels well. All other systems were reviewed and were negative [facility] Medical History (Updated 05/02/25 @ 14:12 by Pedro Callaway MD) Diabetes CKD (chronic kidney disease) Colitis Surgical History History of neck surgery Family History Mother Cancer Social History Alcohol intake: never Patient Tobacco Use Status: Former Tobacco user Review of Systems Const All systems reviewed & are unremarkable except as noted in HPI and below Physical Exam Vital Signs: Last Vital Signs Pulse 99 05/02/25 14:01 BP 134/70 05/02/25 14:01 Pulse Ox 97 05/02/25 14:01 Oxygen Delivery Method Room Air 05/02/25 14:01 BMI result Body Mass Index 30.8 Const General: comfortable and no acute distress Orientation/consciousness: patient oriented x3 HEENT Head: Yes normocephalic Mouth: Normal oral and palatal mucosa present Eyes EOM: EOMs intact bilaterally Neck Neck: Yes supple Resp Auscultation: clear to auscultation bilaterally Cardio Jugular venous distension: no JVD Rate: regular rate GI Palpation (GI): Soft to palpation Auscultation: normal bowel sounds General: Yes no CVA tenderness Back/Spine/Pelvis Back: no CVA tenderness Skin General skin exam: no rashes or lesions noted Neuro General: patient oriented x3 and moves all extremities Extrem General: Yes no pedal edema Results Reviewed Nephrology Results: Hgb, (14.0-18.0) 10.6 g/dl L 04/27/25 WBC, (4.8-10.8) 8.6 X10*3/uL 04/27/25 Plt Count, (160-400) 246 X10*3/uL 04/27/25 Sodium, (135-145) 136 mmol/L 04/27/25 Potassium, (3.3-5.1) 4.8 mmol/L 04/27/25 Chloride, (96-108) 109 mmol/L H 04/27/25 Carbon Dioxide, (22-29) 19 mmol/L L 04/27/25 BUN, (9-16) 39 mg/dL H 04/27/25 Creatinine, (0.5-1.4) 2.51 mg/dL H 04/27/25 Calcium, (8.4-10.2) 9.0 mg/dL 04/27/25 PTH Intact, (8.7-77.1) 366.9 pg/mL H 04/27/25 Urine Protein, (NEG-TRACE) 2+ MG/DL H 12/22/20 Assessment & Plan Assessment & Plan (1) Hypertension: Code(s): I10 - Essential (primary) hypertension Category: Medical Qualifiers: Hypertension type: primary hypertension Qualified Code(s): I10 - Essential (primary) hypertension (2) CKD stage 4 due to type 2 diabetes mellitus: Code(s): E11.22 - Type 2 diabetes mellitus with diabetic chronic kidney disease; N18.4 - Chronic kidney disease, stage 4 (severe) Category: Medical (3) Vitamin D deficiency: Code(s): E55.9 - Vitamin D deficiency, unspecified Category: Medical (4) Secondary hyperparathyroidism (of renal origin): Code(s): N25.81 - Secondary hyperparathyroidism of renal origin Category: Medical Plan Calos has 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 ( Stable GFR now). 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 His blood pressure is better controlled and so is the blood sugar. He has history of proteinuria. All his serology and immunology as a part of CKD workup had been negative in the past. His last documented GFR by 24 hour urine collection was close to 35 mL/minute. I started him on Jardiance 10 mg daily as well as Vitamin D 2000 U daily. He will be a candidate for activated Vitamin D soon.. He maintains good hydration and avoid NSAIDs. I did not make any medication changes today but ordered follow-up blood work. I answered all his questions. Follow-up appointment given. Orders: Orders Blood Urea Nitrogen Today E11.22 - Type 2 diabetes mellitus with diabetic chronic kidney disease, N18.4 - Chronic kidney disease, stage 4 (severe) Electrolytes Today E11.22 - Type 2 diabetes mellitus with diabetic chronic kidney disease, N18.4 - Chronic kidney disease, stage 4 (severe) Creatinine Today E11.22 - Type 2 diabetes mellitus with diabetic chronic kidney disease, N18.4 - Chronic kidney disease, stage 4 (severe) Medications: New cholecalciferol (vitamin D3) 50 mcg PO DAILY 90 caps 4RF empagliflozin (Jardiance) 10 mg PO DAILY 90 tabs 4RF Coding Level of Care Code Est Pt Level 4 (66341) Diagnoses Primary hypertension I10 Hypertension type: primary hypertension CKD stage 4 due to type 2 diabetes mellitus E11.22; N18.4 Vitamin D deficiency E55.9 Secondary hyperparathyroidism (of renal origin) N25.81
[2025-05-02 14:01] VITALS: BP 134/70; PULSE 99; O2SAT 97; BMI 30.8
--- OUTSIDE RECORDS SUMMARY | 2025-05-02 15:51 | XMS_ITS | Clinical Summary ---
Author Organization [facility] Address [address] [place] [address] Care Team Providers Care Concrete Engineer Name Role Phone Aileen Myron Primary Care Provider [phone] Allergies Active Allergy Reactions Criticality Noted Date [...] 90 01/09/2021 10:57 AM EST Temperature 36.2 C (97.1 F) 01/09/2021 11:21 AM EST Respiratory Rate 16 01/09/2021 10:57 AM EST [...] Cancer Screening 05/23/2029 Insurance [employer] Care Teams Concrete Engineer Relationship Specialty Start Date End Date Myron Gallagher PCP - General 01/03/21
== END 2025-05-02 14:18 | disposition home or self-care (01) ==
LOC: HO.HKA 13:49
PROVIDERS: PCP Internal Medicine; Visit Provider Internal Medicine Nephrology
DX: I12.9 Hypertensive chronic kidney disease with stage 1 through stage 4 chronic kidney disease, or unspecified chronic kidney disease (principal); E11.22 Type 2 diabetes mellitus with diabetic chronic kidney disease; N18.4 Chronic kidney disease, stage 4 (severe); E55.9 Vitamin D deficiency, unspecified; N25.81 Secondary hyperparathyroidism of renal origin
CPT/HCPCS: 99214

== ENCOUNTER → 2025-05-02 13:48 | Outpatient (BNVA) | payer OTHER, SELFPAY | PROVIDERS: PCP Internal Medicine; Visit Provider Internal Medicine Nephrology ==

== ENCOUNTER 2025-08-30 08:02 | Outpatient (REF) | payer OTHER, SELFPAY ==
--- OUTSIDE RECORDS SUMMARY | 2025-08-30 08:07 | XMS_ITS | Clinical Summary ---
Author Organization [facility] Address [address] [place] [address] Care Team Providers Care Marine Erector Name Role Phone Aileen Myron Primary Care Provider [phone] Allergies Active Allergy Reactions Criticality Noted Date [...] 1-do se 75+ series) 2024 Influenza Vaccine (#1) 2025 Colonoscopy 05/23/2029 05/23/2019 Colorectal Cancer Screening 05/23/2029 Insurance [employer] Care Teams Marine Erector Relationship Specialty Start Date End Date Myron Gallagher PCP - General 01/03/21
--- OUTSIDE RECORDS SUMMARY | 2025-08-30 08:07 | XMS_ITS | Clinical Summary ---
Author Organization [facility] Address [address] [place] [address] Phone Care Team Providers Care Director Of It Operations Name Role Phone Unavailable Primary Care Provider Unavailabl e Social History Tobacco Use Types Packs/Day Years Used Date Smoking Tobacco: Never Assessed Education Answer Date Recorded Are you interested in more education? Not on sapphire e 06/02/2023 Are you concerned about learning? Not on file 06/02/2023 No 06/02/2023 No 06/02/2023 Digital Access Answer Date Recorded No 06/02/2023 No 06/02/2023 Reliable internet access at home? Not on file 06/02/2023 Device with a working camera? Not on file Sex and Gender Information Value Date Recorded Sex Assigned at Not on file Legal Sex Male 4:34 PM EDT Gender Identity Not on file Sexual Orientation Not on file Plan of Treatment Not on file Medical Devices Not on file Additional Source Comments The information contained in this document represents components of the legal health record. It is not the complete legal health record.[facility]
--- OUTSIDE RECORDS SUMMARY | 2025-08-30 08:07 | XMS_ITS | Encounter Summary ---
Author Organization [facility] Address [address] [place] [address] Care Team Providers Care Medicaid Eligibility Specialist Name Role Phone Roly Curtis MD Primary Care Provider [phone] Encounter Details Date Type Department Care Team (Late Contact Info) Description 08/23/2025 Results Follow-Up Vascular Surgery [facility] [address] [place] [phone] Roxy Landry PA [address] [facility] [address] [place] [address] Social History Tobacco Use Types Packs/Day Years Used Date Smoking Tobacco: Former Cigarettes Smokeless Tobacco: Never Comments:Quit 1994 Alcohol Use Standard Drinks/Week Comments Yes 0 (1 standard drink = 0.6 oz pur e alcohol) social Sex and Gender Information Value Date Recorded Sex Assigned at Not on file Legal Sex Male 8:08 AM EST Gender Identity Not on file Sexual Orientation Not on file documented as of this encounter Plan of Treatment Upcoming Encounters Date Type Department Care Team (Late Contact Info) Description 09/21/2025 1:00 PM EST Office Visit Vascular Surgery [facility] [address] [place] [phone] Abe Flanagan MD [address] [place] [phone] 10/15/2025 2:30 PM EST Office Visit Adult [address] [phone] Roly Curtis MD [address] [place], [place] documented as of this encounter Visit Diagnoses Not on filedocumented in this encounter Care Teams Medicaid Eligibility Specialist Relationship Specialty Start Date End Date Roly Curtis MD [address] [place] [address] PCP - General Internal Medicine 11/23/24 documented as of this encounter
--- OUTSIDE RECORDS SUMMARY | 2025-08-30 08:08 | XMS_ITS | Clinical Summary ---
Author Organization [facility] [address] [place] [address] [place] [phone] Phone Care Team Providers Care Machine Sander Name Role Phone Roly Curtis MD Primary Care Provider [phone] Allergies Active Allergy Reactions Criticality Noted Date Comments Aspirin 10/20/2024 Penicillin G Dermatitis,Rash 10/20/2024 Medications gabapentin (NEURONTIN) 300 mg capsule Take 1 capsule (300 mg total) by mouth at bedtime. 04/06/20 24 Active meclizine (ANTIVERT) 12.5 mg tablet Take 1 tablet (12.5 mg total) by mouth 3 (three) times a day if needed for dizziness (vertigo). 07/07/20 24 Active ciclopirox (LOPROX) 0.77 % cream Apply 1 Application topically 2 (two) times a day. APPLY TO AFFECTED AREA 10/11/20 23 Active ferrous sulfate (FeroSuL) 325 mg (65 mg elemental iron) tablet Take 1 tablet (325 mg total) by mouth 1 (one) time each day. 90 tablet 1 01/12/20 25 Active folic acid (FOLVITE) 1 mg tablet TAKE 1 TABLET BY MOUTH ONCE DAILY 90 tablet 1 06/12/20 25 Active OneTouch Ultra Test test strip USE TO CHECK BLOOD SUGAR THREE TIMES A DAYUSE TO CHECK BLOOD SUGAR THREE TIMES A DAY 100 each 3 06/11/20 25 Active BD Ultra-Fine Mini Pen Needle 31 gauge x 3/16 needle Inject 1 each under the skin 2 (two) times a day. as directed 200 each 1 06/11/20 25 Active empagliflozin (Jardiance) 10 mg tablet Take 1 tablet (10 mg total) by mouth 1 (one) time each day in the morning. Active clopidogreL (PLAVIX) 75 mg tablet Take 1 tablet (75 mg total) by mouth 1 (one) time each day. 90 tablet 1 06/11/20 25 Active dulaglutide (Trulicity) 3 mg/0.5 mL pen injector injectionIndica tions:Type 2 diabetes mellitus with microalbuminuri a, without long-term current use of insulin ([facility] V24, [facility] V28) Inject 0.5 mL (3 mg total) under the skin 1 (one) time per week. 6 mL 1 06/11/20 25 Active glipiZIDE (GLUCOTROL) 5 mg tablet Take 1 tablet (5 mg total) by mouth 1 (one) time each day. 90 tablet 1 06/11/20 25 Active insulin glargine (Lantus Solostar U-100 Insulin) 100 unit/mL (3 mL) injection pen Inject 52 Units under the skin at bedtime. 45 mL 3 06/11/20 25 Active rosuvastatin (CRESTOR) 10 mg tablet Take 1 tablet (10 mg total) by mouth 1 (one) time each day. 90 tablet 1 06/11/20 25 Active amLODIPine (NORVASC) 10 mg tablet Take 1 tablet (10 mg total) by mouth 1 (one) time each day. 90 each 1 06/12/20 25 Active azaTHIOprine (IMURAN) 50 mg tabletIndicatio ns:Crohn's disease of colon without complication ([facility] V24, [facility] V28) Take 3 tablets (150 mg total) by mouth 1 (one) time each day. 270 each 08/02/20 25 Active lisinopriL (PRINIVIL,ZESTR IL) 10 mg tablet TAKE 1 TABLET BY MOUTH AT BEDTIME 90 tablet 3 08/15/20 25 Active azaTHIOprine (IMURAN) 50 mg tabletIndicatio ns:Crohn's disease of colon without complication ([facility] V24, [facility] V28) Take 3 tablets (150 mg total) by mouth 1 (one) time each day. 270 each 3 12/12/19 25 2024 Discontinued(R eorder) lisinopriL (PRINIVIL,ZESTR IL) 10 mg tablet Take 1 tablet (10 mg total) by mouth at bedtime. 90 tablet 06/11/20 25 2024 Discontinued Active Problems Problem Noted Date Diagnosed Date Anemia of chronic disease 10/11/2023 Vertebro basilar insufficiency 07/02/2023 Bilateral carotid artery stenosis 07/02/2023 Cervical spondylosis with radiculopathy 06/30/20 23 Syncope 06/04/2023 Stage 4 chronic kidney disease ([facility] V24, [facility] V28) 05/17/2023 Type 2 diabetes mellitus wit h microalbuminuria, without long-term current use of insulin ([facility] V24, [facility] V28) 03/24/2023 Primary hypertension 03/24/2023 Mixed hyperlipidemia 03/24/2023 Crohn's disease of small int estine without complication ([facility] V24, [facility] V28) 03/24/2023 Peripheral neuropathy 03/24/2023 Osteoarthritis 03/24/2023 Regional enteritis ([facility] V24, [facility] V28) Encounters Date Type Department Care Team Description 08/24/2025 1:30 PM EDT Ancillary Procedure [facility] Cardiology [facility] [place] [address] [phone] Varicose veins of lower extremity with pain, right 08/23/2025 Results Follow-Up Vascular Surgery [address] [phone] Roxy Landry PA 08/20/2025 7:45 AM EDT Ancillary Procedure [facility] Cardiology [facility] [place] [address] [phone] ESRD (end stage renal disease) ([facility] V24, [facility] V28); Pre-op examination 06/18/2025 3:30 PM EDT Office Visit Vascular Surgery [address] [phone] Abe Flanagan MD Varicose veins of lower extremity with pain, right (Primary Dx); ESRD (end stage renal disease) ([facility] V24, [facility] V28); Pre-op examination 06/11/2025 2:45 PM EDT Office Visit Adult Medicine [facility] [place] [address] [place] [phone] Roly Curtis MD Type 2 diabetes mellitus with microalbuminuria, without long-term current use of insulin ([facility] V24, [facility] V28) (Primary Dx); Primary hypertension; Mixed hyperlipidemia; Vertebro basilar insufficiency; Bilateral carotid artery stenosis; Stage 4 chronic kidney disease ([facility] V24, [facility] V28); Anemia of chronic disease; Crohn's disease of small intestine without complication ([facility] V24, [facility] V28) 06/11/2025 7:45 AM EDT Ancillary Procedure [facility] [address] [facility] [address] [place] [address] Bilateral carotid artery stenosis from Last 3 Months Immunizations Immunization Administration Dates Next Due COVID-19 (Moderna/Spikevax) 12yo and older 07/17/2024 Influenza Quadravalent, 0.5m l (Fluzone High-dose) 65yo and older 07/30/2023,08/13/2022,09/03/2021 Influenza, Unspecified 08/12/2023 Moderna SARS-CoV-2 COVID-19, mRNA, LNP-S, preservative free 08/13/2022,03/24/2022,09/09/2021,2020,02/18/2021 Pneumococcal conjugate 20 va lent (Prevnar 20, PCV 20) 2mo and older 10/11/2023 RSV, bivalent, protein subun it RSVpreF, 0.5mL, Preservative Free (Arexvy) 50yo and older 10/08/2024 Tdap Tetanus diptheria acell ular pertussis (Boostrix; Adacel) 7yo and older 07/10/2024 Zoster recombinant (Shingrix ) 19yo and older 10/08/2024,07/10/2024 Surgical History Surgery Date Site/Laterality Comments CERVICAL FUSION COLONOSCOPY Medical History Medical History Date Comments HTN (hypertension) DM2 (diabetes mellitus, type 2) ([facility] V24, [facility] V28) CKD stage 4 due to type 2 diabetes mellitus ([facility] V24, [facility] V28) Crohn's colitis ([facility] V24, [facility] V28) Hyperlipidemia Carotid stenosis Family History Medical History Relation Name Comments brain tumor Mother Relation Name Status Comments Mother Social History Tobacco Use Types Packs/Day [...] on file Sexual Orientation Not on file Obstetrics History Last Filed Vital Signs Vital Sign Reading Time Taken Comments Blood Pressure 136/78 06/11/2025 2:38 PM EDT provider will recheck Pulse 86 06/11/2025 2:38 PM EDT Temperature 35.9 C (96.6 F) 06/11/2025 2:38 PM EDT Respiratory Rate 18 06/11/2025 2:38 PM EDT Oxygen Saturation - - Inhaled Oxygen Concentration - - Weight 98.9 kg (218 lb) 06/11/2025 2:38 PM EDT Height 180.3 cm (5' 11 ) 06/11/2025 2:3 8 PM EDT Body Mass Index 30.4 06/11/2025 2:38 PM EDT Plan of Treatment Upcoming Encounters Date Type Department Care Team (Late st Contact Info) Description 09/21/2025 1:00 PM EST Office Visit Vascular Surgery - [place] [address] [facility] [address] [place] [address] Abe Flanagan MD [address] [place] [phone] 10/15/2025 2:30 PM EST Office Visit Adult Medicine [address] [phone] Roly Curtis MD [address] [place] [address] Health Maintenance Due Date Last Done Comments Diabetes: Annual Foot Exam 1960 Falls Risk Assessment 10/18/2022 Hepatitis C Screening 10/18/2022 Medicare Annual Wellness Visit 10/18/2022 Social Influencers of Health Screening 10/18/2022 Depression Screening 11/15/2024 Diabetes: Annual Retina Eye Exam 06/09/2025 06/09/2024 COVID-19 Vaccine (7 - Moderna risk season) 2025 07/17/2024, 08/13/2022, 03/24/2022, Additional history exists Influenza Vaccine (#1) 2025 , 07/30/2023, 08/13/2022, Additional history exists Diabetes: Blood Sugar Control Test (HGBA1C) 12/13/2025 06/12/2025, 01/16/2025, 06/28/2024, Additional history exists Diabetes: Annual Urine Albumin-Creatinine Ratio (uACR) 01/16/2026 01/16/2025, 01/14/2024 Diabetes: Annual GFR (Glomerular Filtration Rate) 06/12/2026 06/12/2025, 12/12/2024, 06/28/2024 Hypertension/CHF/CAD Annual BMP Blood Test 06/12/2026 06/12/2025, 12/12/2024, 06/28/2024 Cholesterol Screening (Lipid Panel) 01/16/2030 01/16/2025, 01/14/2024 DTaP,Tdap,and Td Vaccines (2 - Td or Tdap) 07/10/2034 07/10/2024 Colorectal Cancer Screening: Colonoscopy 12/12/2034 12/12/2024 Pneumococcal Vaccine: 50+ Years Completed 10/11/2023 Abdominal Aortic Aneurysm (AAA) Screen Completed 10/27/2023 Colorectal Cancer Screening: Stool Based Tests (FOBT/FIT) Discontinued 02/11/2024 RSV Immunization Adult Patients Completed 10/08/2024 Zoster Vaccines Completed 10/08/2024, 07/10/2024 [...] age to complete this topic Meningococcal B Vaccine Aged Out No l onger eligible based on patient's age to complete this topic RSV Immunization Patients Under 20 months Aged Out No longer eligible based on patient's age to complete this topic Varicella Vaccines Aged Out No longer eligible based on patient's age to complete this topic Procedures Procedure Name Priority Date/Time Associated Diagnosis Comments VAS US DUPLEX LOWER EXT VENOUS INSUFFICIENCY RIGHT Routine 08/24/2025 1:34 PM EDT Varicose veins of lower extremity with pain, right VAS US VEIN MAP HEMODIALYSIS ACCESS ARM BILATERAL Routine 08/20/2025 7:58 AM EDT ESRD (end stage renal disease) ([facility] V24, [facility] V28) Pre-op examination CBC WITH AUTO DIFFERENTIAL Routine 06/12/2025 8:33 AM EDT Anemia of chronic disease HEMOGLOBIN A1C Routine 06/12/2025 8:33 AM EDT Type 2 diabetes mellitus with microalbuminuria, without long-term current use of insulin ([facility] V24, [facility] V28) BASIC METABOLIC PANEL Routine 06/12/2025 8:33 AM EDT Type 2 diabetes mellitus with microalbuminuria, without long-term current use of insulin ([facility] V24, [facility] V28) Primary hypertension Stage 4 chronic kidney disease ([facility] V24, [facility] V28) CBC AND DIFFERENTIAL Routine 06/12/2025 8:33 AM EDT Anemia of chronic disease VAS US DUPLEX CAROTID BILATERAL Routine 06/11/2025 8:06 AM EDT Bilateral carotid artery stenosis MICROALBUMIN CREATININE URINE RATIO Routine 01/16/2025 7:57 AM EST Type 2 diabetes mellitus with microalbuminuria, without long-term current use of insulin ([facility] V24, [facility] V28) LIPID PANEL WITH REFLEX TO DIRECT LDL Routine 01/16/2025 7:57 AM EST Mixed hyperlipidemia COLONOSCOPY Routine 12/12/2024 11:03 AM EST HM DIABETES EYE EXAM Routine 06/09/2024 STOOL BASED TEST Routine 02/11/2024 ABDOMINAL AORTIC ANEURYSM SCRREN Routine 10/27/2023 from Last 3 Months or Most Recently Relevant to Health Maintenance Results * Vascular US duplex lower extremity venous insufficiency right (08/24/2025 1:34 PM EDT) Right GSK ha 0.55 cm CV VAS LAB Right GSDC ha 0.24 cm CV VAS LAB Right GSMT ha 0.27 cm CV VAS LAB Right GSPC ha 0.47 cm CV VAS LAB Right GSPT ha 0.24 cm CV VAS LAB Right SFJ Diameter 0.49 cm CV VAS LAB Right SSMC ha 0.21 cm CV VAS LAB Right SSPC ha 0.18 cm CV VAS LAB Right GSPT reflux 683 ms CV VAS LAB Right GSK reflux 3,538 ms CV VAS LAB Right GSPC reflux 3,900 ms CV VAS LAB Anatomical Region Laterality Modality Vascular, Abdomen Ultrasound Narrative 08/27/2025 2:41 PM EDT Right: 1. The right lower extremity veins are compressible and there is no evidence of DVT in the right lower extremity venous system. 2. The GSV has clinically significant reflux of 0.6 seconds in the proximal thigh, 3.5 seconds at the level of right knee and 3.9 seconds in the right upper calf. 3. The SSV has no significant reflux. Right Venous Insufficiency Duplex The exam was performed with the patient in reverse Trendelenburg. No evidence of deep vein thrombosis in the common femoral, deep femoral, proximal femoral, mid femoral, distal femoral, popliteal, greater saphenous, small saphenous, posterior tibial and peroneal veins of the right leg. The vessels showed compressibility. Interrogation showed phasic and spontaneous Doppler signals. us Abe Flanagan MD CV VASCULAR PROCEDURES Final Re sult * Vascular US vein map for hemodialysis access arm bilateral (08/20/2025 7:58 AM EDT) Right Ceph AP ua prox 0.23 cm CV VAS LAB Right Ceph AP ua mid 0.19 cm CV VAS LAB Right Ceph AP ua dist 0.21 cm CV VAS LAB Right Ceph AP fa prox 0.27 cm CV VAS LAB Right Ceph AP fa mid 0.15 cm CV VAS LAB Right Ceph AP fa dist 0.16 cm CV VAS LAB Right Basc ap ua prox 0.13 cm CV VAS LAB Right Basc ap ua mid 0.32 cm CV VAS LAB Right Basc ap ua dist 0.36 cm CV VAS LAB Right Basc ap fa prox 0.29 cm CV VAS LAB Right Basc ap fa mid 0.22 cm CV VAS LAB Right Basc ap fa dist 0.24 cm CV VAS LAB Left Ceph AP ua prox 0.10 cm CV VAS LAB Left Ceph AP ua mid 0.13 cm CV VAS LAB Left Ceph AP ua dist 0.08 cm CV VAS LAB Left Basc ap ua prox 0.20 cm CV VAS LAB Left Basc ap ua mid 0.29 cm CV VAS LAB Left Basc ap ua dist 0.37 cm CV VAS LAB Left Basc ap fa prox 0.28 cm CV VAS LAB Left Basc ap fa mid 0.26 cm CV VAS LAB Left Basc ap fa dist 0.28 cm CV VAS LAB Anatomical Region Laterality Modality Vascular, Abdomen Ultrasound Narrative 08/23/2025 1:11 PM EDT Right: 1. Cephalic vein measurements as described below. 2. Basilic vein measurements as described below. 3. No deep vein thrombosis. 4. No superficial vein thrombosis. Left: 1. Cephalic vein measurements as described below. No forearm vein visualized. 2. Basilic vein measurements as described below. 3. No deep vein thrombosis. 4. No superficial vein thrombosis. Right Upper Vein Mapping No evidence of deep vein thrombosis in the internal jugular vein, subclavian vein, axillary vein, brachial veins, basilic vein, cephalic vein, radial veins, and ulnar veins of the right arm. The vessels showed compressibility with normal Doppler flow. Left Upper Vein Mapping No evidence of deep vein thrombosis in the internal jugular vein, subclavian vein, axillary vein, brachial veins, basilic vein, cephalic vein, radial veins, and ulnar veins of the left arm. The vessels showed compressibility with normal Doppler flow. The left forearm cephalic vein was not visualized. Practice Advisor Details A krishnamurthy scale, color and doppler analysis ultrasound was performed. During the study longitudinal and transverse views were obtained. Pulsed wave doppler was performed. us Abe Flanagan MD CV VASCULAR PROCEDURES Final Re sult * (ABNORMAL) CBC auto differential (06/12/2025 8:33 AM EDT) WBC 8.2 4.8 - 10.8 K/mcL LAB HEMETOLOGY METHOD 06/12/2025 10:48 AM [facility] RBC 3.20(L) 4.50 - 5.50 M/mcL LAB HEMETOLOGY METHOD 06/12/2025 10:48 AM [facility] Hemoglobin 10.8(L) 13.5 - 17.5 g/dL LAB HEMETOLOGY METHOD 06/12/2025 10:48 AM [facility] Hematocrit 32.8(L) 42.0 - 54.0 % LAB HEMETOLOGY METHOD 06/12/2025 10:48 AM [facility] MCV 101.9(H) 79.0 - 98.0 FL LAB HEMETOLOGY METHOD 06/12/2025 10:48 AM [facility] MCH 33.5(H) 27.0 - 32.0 pcg LAB HEMETOLOGY METHOD 06/12/2025 10:48 AM [facility] MCHC 32.9 32.0 - 37.0 g/dL LAB HEMETOLOGY METHOD 06/12/2025 10:48 AM [facility] RDW 15.8(H) 11.0 - 15.0 % LAB HEMETOLOGY METHOD 06/12/2025 10:48 AM [facility] Platelets 279 130 - 400 K/mcL LAB HEMETOLOGY METHOD 06/12/2025 10:48 AM [facility] MPV 11.2(H) 7.0 - 11.0 FL LAB HEMETOLOGY METHOD 06/12/2025 10:48 AM [facility] NRBC 0.0 <1.0 % LAB HEMETOLOGY METHOD 06/12/2025 10:48 AM [facility] NRBC Absolute 0.00 <0.10 K/mcL LAB HEMETOLOGY METHOD 06/12/2025 10:48 AM [facility] Neutrophils Relative 62.6 % LAB HEMETOLOGY METHOD 06/12/2025 10:48 AM [facility] Lymphocytes Relative 18.4 % LAB HEMETOLOGY METHOD 06/12/2025 10:48 AM [facility] Monocytes Relative 10.4 % LAB HEMETOLOGY METHOD 06/12/2025 10:48 AM [facility] Eosinophils Relative 6.8 % LAB HEMETOLOGY METHOD 06/12/2025 10:48 AM [facility] Basophils Relative 0.9 % LAB HEMETOLOGY METHOD 06/12/2025 10:48 AM [facility] Immature Granulocytes Relative 0.9 % LAB HEMETOLOGY METHOD 06/12/2025 10:48 AM [facility] Neutrophils Absolute 5.15 1.50 - 7.00 K/mcL LAB HEMETOLOGY METHOD 06/12/2025 10:48 AM [facility] Lymphocytes Absolute 1.51 1.00 - 5.00 K/mcL LAB HEMETOLOGY METHOD 06/12/2025 10:48 AM [facility] Monocytes Absolute 0.85 0.20 - 1.00 K/mcL LAB HEMETOLOGY METHOD 06/12/2025 10:48 AM EDT [facility] Eosinophils Absolute 0.56(H) 0.00 - 0.50 K/[facility] LAB HEMETOLOGY METHOD 06/12/2025 10:48 AM EDT [facility] Basophils Absolute 0.07 0.00 - 0.20 K/[facility] LAB HEMETOLOGY METHOD 06/12/2025 10:48 AM EDT [facility] Immature Granulocytes Absolute 0.07(H) 0.00 - 0.03 K/[facility] LAB HEMETOLOGY METHOD 06/12/2025 10:48 AM EDT [facility] Blood Venous blood specimen / Unknown Venipuncture / Unknown 06/12/2025 8:33 AM EDT 06/12/2025 8:33 AM EDT Roly Curtis MD LAB BLOOD ORDERABLES Final Result [facility] [address] [place] [address], * (ABNORMAL) Hemoglobin A1c (06/12/2025 8:33 AM EDT) Hemoglobin A1C 7.6(H) <6.5 % LAB CHEMISTRY METHOD 06/12/2025 1:05 PM EDT [facility] Mean Bld Glu Estim. 171 mg/dL LAB CHEMISTRY METHOD 06/12/2025 1:05 PM EDT [facility] Blood Venous blood specimen / Unknown Venipuncture / Unknown 06/12/2025 8:33 AM EDT 06/12/2025 8:33 AM EDT Roly Curtis MD LAB BLOOD ORDERABLES Final Result [facility] [address] [place] [address], * (ABNORMAL) Basic metabolic panel (06/12/2025 8:33 AM EDT) Sodium 134 133 - 145 mmol/L LAB CHEMISTR[facility] Potassium 5.3 3.5 - 5.5 mmol/L LAB CHEMISTRY METHOD 06/12/2025 1:52 PM [facility] Chloride 109 96 - 110 mmol/L LAB CHEMISTRY METHOD 06/12/2025 1:52 PM [facility] CO2 20(L) 21 - 32 mmol/L LAB CHEMISTRY METHOD 06/12/2025 1:52 PM [facility] Anion Gap 5 3 - 11 LAB CHEMISTRY METHOD 06/12/2025 1:52 PM [facility] Glucose 156(H) 70 - 100 mg/dL LAB CHEMISTRY METHOD 06/12/2025 1:52 PM [facility] BUN 66(H) 5 - 25 mg/dL LAB CHEMISTRY METHOD 06/12/2025 1:52 PM [facility] Creatinine 3.52(H) 0.70 - 1.30 mg/dL LAB CHEMISTRY METHOD 06/12/2025 1:52 PM [facility] eGFR 17(L) >=60 mL/min/1. 73m2 LAB CHEMISTRY METHOD 06/12/2025 1:52 PM [facility] Comment:Calculation based on the Chronic Kidney Disease Epidemiology Collaboration (CKD-EPI) equation refit without adjustment for race. BUN/Creatinine Ratio 18.8 LAB CHEMISTRY METHOD 06/12/2025 1:52 PM [facility] Calcium 8.6 8.5 - 10.5 mg/dL LAB CHEMISTRY METHOD 06/12/2025 1:52 PM [facility] Blood Venous blood specimen / Unknown Venipuncture / Unknown 06/12/2025 8:33 AM EDT 06/12/2025 8:33 AM EDT Roly Curtis MD LAB BLOOD ORDERABLES Final Result [facility] [address] [place] [address], * Vascular US duplex carotid bilateral (06/11/2025 8:06 AM EDT) Left CCA dist vasquez 10 cm/s CV VAS LAB Left CCA dist sys 65 cm/s CV VAS LAB LEFT COMMON CAROTID ARTERY MID D 14 cm/s CV VAS LAB LEFT COMMON CAROTID ARTERY MID S 170 cm/s CV VAS LAB Left CCA prox vasquez 14 cm/s CV VAS LAB Left CCA prox sys 252 cm/s CV V[facility] LAB LEFT EXTERNAL CAROTID ARTERY D 12 cm/s CV V[facility] LAB Left ECA sys 134 cm/s CV V[facility] LAB Left ICA/CCA sys 1.60 CV VAS LAB Left ICA dist vasquez 26 cm/s CV V[facility] LAB Left ICA dist sys 102 cm/s CV VAS LAB Left ICA mid vasquez 24 cm/s CV VAS LAB Left ICA mid sys 90 cm/s CV VAS LAB Left ICA prox vasquez 13 cm/s CV VAS LAB Left ICA prox sys 79 cm/s CV V[facility] LAB Left vertebral sys 91 cm/s CV VAS LAB Right CCA dist vasquez 16 cm/s CV VAS LAB Right cca dist sys 111 cm/s CV VAS LAB RIGHT COMMON CAROTID ARTERY MID D 14 cm/s CV VAS LAB RIGHT COMMON CAROTID ARTERY MID S 151 cm/s CV VAS LAB Right CCA prox vasquez 16 cm/s CV VAS LAB Right CCA prox sys 148 cm/s CV VAS LAB RIGHT EXTERNAL CAROTID ARTERY D 11 cm/s CV VAS LAB Right eca sys 182 cm/s CV VAS LAB Right ICA/CCA sys 1.50 CV VAS LAB Right ICA dist vasquez 28 cm/s CV VAS LAB Right ICA dist sys 140 cm/s CV VAS LAB Right ICA mid vasquez 39 cm/s CV VAS LAB Right ICA mid sys 166 cm/s CV VAS LAB Right ICA prox vasquez 14 cm/s CV VAS LAB Right ICA prox sys 64 cm/s CV VAS LAB Right vertebral sys 100 cm/s CV V[facility] LAB Left Prox Subclavian PSV 203 cm/s CV V[facility] LAB Right Prox Subclavian PSV 237 cm/s CV V[facility] LAB Right Bulb PSV 99 cm/s CV V[facility] LAB Right Bulb EDV 16 cm/s CV [facility] LAB Right arm BP 138 mmHg CV VAS LAB Left arm BP 144 mmHg CV VAS LAB Left Bulb PSV 84 cm/s CV VAS LAB Left Bulb EDV 13 cm/s CV VAS LAB Anatomical Region Laterality Modality Vascular, Abdomen Ultrasound Narrative 06/12/2025 4:43 PM EDT Right ICA: There is minimal heterogeneous plaque. Left ICA: There is minimal heterogeneous plaque. RIGHT. 1. There is atherosclerotic plaque in the carotid system as noted above. 2. There is less than 50% stenosis in the internal carotid artery based on Doppler velocity. 3. The subclavian artery has normal Doppler flow pattern. 4. Vertebral artery has normal antegrade flow. LEFT. 1. There is atherosclerotic plaque in the carotid system as noted above. 2. There is less than 50% stenosis in the internal carotid artery based on Doppler velocity. Of note, elevated PSV in proximal CCA is secondary to tortuosity. 3. The subclavian artery has normal Doppler flow pattern. 4. Vertebral artery has normal antegrade flow. Right Carotid There is evidence of intimal thickening in the CCA. The bifurcation has minimal heterogeneous plaque. The ICA has minimal heterogeneous plaque. The ECA has minimal heterogeneous plaque. The subclavian artery waveforms are triphasic. Vertebral flow is antegrade. Left Carotid The CCA has minimal heterogeneous plaque and intimal thickening. The proximal CCA is tortuous. The proximal CCA waveform is turbulent. The bifurcation has minimal heterogeneous plaque. The ICA has minimal heterogeneous plaque. The ECA has minimal heterogeneous plaque. The subclavian artery waveforms are triphasic. Vertebral flow is antegrade. Practice Advisor Details A krishnamurthy scale, color and doppler analysis ultrasound was performed. During the study longitudinal and transverse views were obtained. Continuous wave doppler and pulsed wave doppler was performed. Overall the study quality was good. us Pennie FISHER CV VASCULAR PROCEDURES Final Result * (ABNORMAL) Lipid panel with reflex to direct LDL (01/16/2025 7:57 AM EST) Cholesterol 125 0 - 200 mg/dL LAB CHEMISTRY METHOD 01/16/2025 10:32 AM [facility] Triglycerides 253(H) 0 - 150 mg/dL LAB CHEMISTRY METHOD 01/16/2025 10:32 AM [facility] HDL 33(L) >=40 mg/dL LAB CHEMISTRY METHOD 01/16/2025 10:32 AM [facility] LDL Calculated 41 0 - 100 mg/dL LAB CHEMISTRY METHOD 01/16/2025 10:32 AM [facility] VLDL Cholesterol Brooks 50.6 mg/dL LAB CHEMISTRY METHOD 01/16/2025 10:32 AM [facility] Non HDL Chol. (LDL+VLDL) 92 <145 mg/dL LAB CHEMISTRY METHOD 01/16/2025 10:32 AM [facility] Chol/HDL Ratio 3.8 0.0 - 4.4 LAB CHEMISTRY METHOD 01/16/2025 10:32 AM [facility] Blood Venous blood specimen / Unknown Venipuncture / Unknown 01/16/2025 7:57 AM EST 01/16/2025 7:57 AM EST us Roly Curtis MD LAB BLOOD ORDERABLES Final Result [facility] [address] [place] [address], * (ABNORMAL) Microalbumin creatinine urine ratio (01/16/2025 7:57 AM EST) Creatinine, Urine 193.0 mg/dL LAB CHEMISTRY METHOD 01/16/2025 11:08 AM [facility] Microalb, Ur 1,580.0(H ) 0.0 - 29.0 mg/L LAB CHEMISTRY METHOD 01/16/2025 11:08 AM EST [facility] Microalb/Crea t Ratio 819(H) <30 mg/g creat LAB CHEMISTRY METHOD 01/16/2025 11:08 AM EST [facility] Urine Urine specimen obtained by clean catch procedure / Unknown Non-blood Collection / Unknown 01/16/2025 7:57 AM EST 01/16/2025 7:57 AM EST Roly Curtis MD LAB URINE ORDERABLES Final Result [facility] [address] [place] [address], * COLONOSCOPY (12/12/2024 11:03 AM EST) Anatomical Region Laterality Modality Endoscopy Historical Provider GI~PROCEDURE ORDERABLES F inal Result * Diabetes Eye Exam (06/09/2024) [facility] Diabetes: Annual Retina Eye Exam Abstracted Historical Provider HEALTH MAINTENANCE Final Result * Stool Based Tests (FOBT/FIT) (02/11/2024) [facility] Colorectal Cancer Screening: Stool Based Tests Negative, Abstracted Historical Provider HEALTH MAINTENANCE Final Result * Abdominal Aortic Aneurysm Screen (10/27/2023) [facility] Abdominal Aortic Aneurysm (AAA) Screening Abstracted Anatomical Region Laterality Modality Other Historical Provider HEALTH MAINTENANCE Final Result from Last 3 Months or Most Recently Relevant to Health Maintenance Insurance [employer] MEDICARE Advance Directives Documents on File Type Date Recorded Patient Quality Systems Specialist Expl anation Health Care Decision (hx) 02/28/2015 AD GALVAN DIRECTIVE Health Care Decision (hx) 02/28/2015 AD GALVAN DIRECTIVE Health Care Decision (hx) 02/28/2015 AD GALVAN DIRECTIVE Health Care Decision (hx) 02/28/2015 AD GALVAN DIRECTIVE Health Care Decision (hx) 02/28/2015 AD GALVNA DIRECTIVE Health Care Decision (hx) 02/28/2015 AD [...] (hx) 02/28/2015 AD GALVAN DIRECTIVE Care Teams Machine Sander Relationship Specialty Start Date End Date Roly Curtis MD [address] [place] [id number] PCP - General Internal Medicine 11/23/24
--- OUTSIDE RECORDS SUMMARY | 2025-08-30 08:08 | XMS_ITS | Patient Health Record ---
Author Organization [facility] Address [address] [place] [address] Care Team Providers Care Care Partner Name Role Phone Aileen ARREOLA, Myron Primary Care Provider Melo Chaney Unavailable [phone] Allergies Allergen (clinical drug ingredient) Drug/Non Drug Allergy documented on EMR Reaction Allergy Type Onset Date Status Penicillin rash Drug Allergy Active aspirin aspirin chrohns Drug Allergy Active Reason For Referral No Information Medications Medication SIG (Take, Route, Frequency, Duration) Notes Start Date End Date Status amLODIPine Besylate 5 MG 1 tablet Orally Once a day; Duration: 30 day(s) Active Lisinopril 40 MG 1 tablet Orally Once a day; Duration: 30 day(s) Active azaTHIOprine 50 MG 4 Tablets Orally Onc e a angela Active hydroCHLOROthiazide 25 MG 1 tablet Orall y Once a day; Duration: 30 day(s) Active Simvastatin 20 MG 1 tablet every eveni ng Orally Once a day; Duration: 30 day(s) Active glyBURIDE 5 MG 2 tablets Orally Twi ce a day; Duration: 30 day(s) Active Vitamin D 1.25 MG 1 tablet Once a day Active Problems Problem Type SNOMED Code ICD Code Onset Dates Problem Status W/U Status Risk Notes Problem Bursitis (32178237) Bursitis (727.3) Active confirmed Problem Calcaneal spur (14695579) Calcaneal spur (726.73) Active confirmed Problem Type II diabetes mellitus without complication (631971351) Diabetic - NIDDM (250.00) Active confirmed Problem Myositis (85582302) Myositis (729.1) Active confirmed Problem Pain in limb (30221410) Pain in Limb (729.5) Active confirmed Problem Plantar fasciitis (339058730) Plantar Fasciitis (728.71) Active confirmed Plan Of Treatment Pending Test Test Name Order Date X ray : Foot, left 3V 01/01/2012 Insurance Providers Payer Name Payer Address Payer Phone Subscriber Number Group Number Insured Name Patient Relationship to Insured Coverage Start Date Coverage End Date [facility] [employer] [address] [place] [address] [id number] Prashant Silva Self - patient is the insured Medical (General) History Medical History History ICD Code Arthritis diabetic crohns disease hypertension kidney disease measles mumps chicken pox Surgical History Surgery Date(Month/Year) discectomy 1979 back surgery 1979
[2025-08-30 11:24] LABS: Anion Gap 14 (12-20); Blood Urea Nitrogen 50 mg/dL (9-16); Carbon Dioxide 19 mmol/L (22-29); Chloride 109 mmol/L (96-108); Estimated Glomerular Filt Rate 17; Potassium 5.1 mmol/L (3.3-5.1); Sodium 137 mmol/L (135-145)
== END 2025-08-30 08:03 | disposition home or self-care (01) ==
LOC: HO.10HDL 08:02
PROVIDERS: Visit Provider Internal Medicine Nephrology
DX: E11.22 Type 2 diabetes mellitus with diabetic chronic kidney disease (principal); N18.4 Chronic kidney disease, stage 4 (severe)
CPT/HCPCS: 36415; 80051; 82565; 84520

== ENCOUNTER 2025-08-31 09:53 | Outpatient (AMB) | payer OTHER, SELFPAY ==
--- NOTE | 2025-08-31 09:59 | HO.NEPHOV_ITS ---
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 He follows up with his tag machine operator for colitis . 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 His blood sugar is better control now. His blood pressure has been at goal. He is compliant with his medications. He denies chest pain, shortness of breath, proximal nocturnal dyspnea, orthopnea, pedal edema, hematuria, dysuria, frequency, night sweats, weight loss or orthostatic symptoms. He does not take any nonsteroidal anti- inflammatory medications. He feels well. His serum creatinine has gone up. All other systems were reviewed and were negative [facility] Medical History (Updated 08/31/25 @ 10:13 by Pedro Callaway MD) Diabetes CKD (chronic kidney disease) Colitis Surgical History History of neck surgery Family History Mother Cancer Social History Alcohol intake: never Patient Tobacco Use Status: Former Tobacco user Review of Systems Const All systems reviewed & are unremarkable except as noted in HPI and below Physical Exam Vital Signs: Last Vital Signs Pulse 85 08/31/25 10:04 BP 132/60 08/31/25 10:04 Pulse Ox 97 08/31/25 10:04 Oxygen Delivery Method Room Air 08/31/25 10:04 BMI result Body Mass Index 30.4 Const General: comfortable and no acute distress Orientation/consciousness: patient oriented x3 HEENT Head: Yes normocephalic Mouth: Normal oral and palatal mucosa present Eyes EOM: EOMs intact bilaterally Neck Neck: Yes supple Resp Auscultation: clear to auscultation bilaterally Cardio Jugular venous distension: no JVD Rate: regular rate GI Palpation (GI): Soft to palpation Auscultation: normal bowel sounds General: Yes no CVA tenderness Back/Spine/Pelvis Back: no CVA tenderness Skin General skin exam: no rashes or lesions noted Neuro General: patient oriented x3 and moves all extremities Extrem General: Yes no pedal edema Results Reviewed Nephrology Results: Hgb, (14.0-18.0) 10.6 g/dl L 04/27/25 WBC, (4.8-10.8) 8.6 X10*3/uL 04/27/25 Plt Count, (160-400) 246 X10*3/uL 04/27/25 Sodium, (135-145) 137 mmol/L 08/30/25 Potassium, (3.3-5.1) 5.1 mmol/L 08/30/25 Chloride, (96-108) 109 mmol/L H 08/30/25 Carbon Dioxide, (22-29) 19 mmol/L L 08/30/25 BUN, (9-16) 50 mg/dL H 08/30/25 Creatinine, (0.5-1.4) 3.48 mg/dL H 08/30/25 Calcium, (8.4-10.2) 9.0 mg/dL 04/27/25 PTH Intact, (8.7-77.1) 366.9 pg/mL H 04/27/25 Assessment & Plan Assessment & Plan (1) Hypertension: Code(s): I10 - Essential (primary) hypertension Category: Medical Qualifiers: Hypertension type: primary hypertension Qualified Code(s): I10 - Essential (primary) hypertension (2) Secondary hyperparathyroidism (of renal origin): Code(s): N25.81 - Secondary hyperparathyroidism of renal origin Category: Medical (3) Vitamin D deficiency: Code(s): E55.9 - Vitamin D deficiency, unspecified Category: Medical (4) CKD stage 4 due to type 2 diabetes mellitus: Code(s): E11.22 - Type 2 diabetes mellitus with diabetic chronic kidney disease; N18.4 - Chronic kidney disease, stage 4 (severe) Category: Medical (5) SURY (acute kidney injury): Code(s): N17.9 - Acute kidney failure, unspecified Category: Medical Plan Calos has 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 His serum creatinine has gone up. I held his ACEI. 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 His blood pressure is better controlled and so is the blood sugar. He has history of proteinuria. All his serology and immunology as a part of CKD workup had been negative in the past. His last documented GFR by 24 hour urine collection was close to 35 mL/minute. He can continue Jardiance 10 mg daily. I started him Vitamin D 2000 U daily. He will be a candidate for activated Vitamin D soon. He maintains good hydration and avoid NSAIDs. Follow-up appointment given Orders: Orders Creatinine 3 Weeks N17.9 - Acute kidney failure, unspecified Blood Urea Nitrogen 3 Weeks N17.9 - Acute kidney failure, unspecified Electrolytes 3 Weeks N17.9 - Acute kidney failure, unspecified Calcium 3 Weeks N17.9 - Acute kidney failure, unspecified Medications: Refilled cholecalciferol (vitamin D3) 50 mcg PO DAILY 90 caps 4RF Coding Level of Care Code Est Pt Level 4 (03893) Diagnoses Primary hypertension I10 Hypertension type: primary hypertension Secondary hyperparathyroidism (of renal origin) N25.81 Vitamin D deficiency E55.9 CKD stage 4 due to type 2 diabetes mellitus E11.22; N18.4 SURY (acute kidney injury) N17.9
[2025-08-31 10:04] VITALS: BP 132/60; PULSE 85; O2SAT 97; BMI 30.4
--- OUTSIDE RECORDS SUMMARY | 2025-08-31 11:32 | XMS_ITS | Clinical Summary ---
Author Organization [facility] Address [address] [place] [address] Care Team Providers Care Crimping Machine Operator Name Role Phone Aileen Myron Primary Care Provider [phone] Allergies Active Allergy Reactions Criticality Noted Date [...] Cancer Screening 05/23/2029 Insurance [employer] Care Teams Crimping Machine Operator Relationship Specialty Start Date End Date Myron Gallagher PCP - General 01/03/21
--- OUTSIDE RECORDS SUMMARY | 2025-08-31 11:32 | XMS_ITS | Patient Health Record ---
Author Organization [facility] Address [address] [place] [address] Care Team Providers Care Die Storage Worker Name Role Phone Aileen ARREOLA, Myron Primary Care Provider Melo Chaney Unavailable [phone] Allergies Allergen (clinical drug ingredient) Drug/Non Drug [...] Status W/U Status Risk Notes Problem Bursitis (67720655) Bursitis (727.3) Active confirmed Problem Calcaneal spur (59854521) Calcaneal spur (726.73) Active confirmed Problem Type II diabetes mellitus without complication (845880501) Diabetic - NIDDM (250.00) Active confirmed Problem Myositis (33694960) Myositis (729.1) Active confirmed Problem Pain in limb (78712413) Pain in Limb (729.5) Active confirmed Problem Plantar fasciitis (799595094) Plantar Fasciitis (728.71) Active confirmed Plan Of Treatment Pending Test Test Name Order Date X ray : Foot, left 3V 01/01/2012 Insurance Providers Payer Name Payer Address Payer Phone Subscriber Number Group Number Insured Name Patient Relationship to Insured Coverage Start Date Coverage End Date [facility] Others [address] [place] [address] [id number] Prashant Silva Self - patient is the insured Medical (General) History Medical History History ICD Code Arthritis diabetic crohns disease hypertension kidney disease measles mumps chicken pox Surgical History Surgery Date(Month/Year) discectomy 1979 back surgery 1979
--- OUTSIDE RECORDS SUMMARY | 2025-08-31 11:32 | XMS_ITS | Clinical Summary ---
Author Organization [facility] [address] [place] [address] [place] [phone] Phone Care Team Providers Care Maritime Officer Name Role Phone Roly Curtis MD Primary Care Provider [phone] Allergies Active Allergy Reactions Criticality Noted Date [...] DAILY 90 tablet 1 06/12/20 25 Active BD Ultra-Fine Mini Pen Needle [...] a, without long-term current use of insulin ([facility] V24, [facility] V28) Inject 0.5 mL (3 [...] tabletIndicatio ns:Crohn's disease of colon without complication ([facility] V24, CMS/[facility] V28) Take 3 tablets (150 mg total) by mouth 1 (one) time each day. 270 each 08/02/20 25 Active lisinopriL (PRINIVIL,ZESTR IL) 10 mg tablet TAKE 1 TABLET BY MOUTH AT BEDTIME 90 tablet 3 08/15/20 25 Active OneTouch Ultra Test test strip USE TO CHECK BLOOD SUGAR 3 TIMES DAILY 100 strip 5 08/30/20 25 Active azaTHIOprine (IMURAN) 50 mg tabletIndicatio ns:Crohn's disease of colon without complication ([facility] V24, CMS/[facility] V28) Take 3 tablets (150 mg total) by mouth 1 (one) time each day. 270 each 3 12/12/19 25 2024 Discontinued(Man sampson) OneTouch Ultra Test test strip USE TO CHECK BLOOD SUGAR THREE TIMES A DAYUSE TO CHECK BLOOD SUGAR THREE TIMES A DAY 100 each 3 06/11/20 25 2024 Discontinued lisinopriL (PRINIVIL,ZESTR IL) 10 mg tablet Take 1 tablet (10 mg total) by mouth at bedtime. 90 tablet 06/11/202024 Discontinued Active Problems Problem Noted Date Diagnosed Date Anemia of chronic disease 10/11/2023 Vertebro basilar insufficiency 07/02/2023 Bilateral carotid artery stenosis 07/02/2023 Cervical spondylosis with radiculopathy 06/30/20 23 Syncope 06/04/2023 Stage 4 chronic kidney disease ([facility] V24, [facility] V28) 05/17/2023 Type 2 diabetes mellitus wit h microalbuminuria, without long-term current use of insulin ([facility] V24, [facility] V28) 03/24/2023 Primary hypertension 03/24/2023 Mixed hyperlipidemia 03/24/2023 Crohn's disease of small int estine without complication ([facility] V24, [facility] V28) 03/24/2023 Peripheral neuropathy 03/24/2023 Osteoarthritis 03/24/2023 Regional enteritis ([facility] V24, [facility] V28) Encounters Date Type Department Care Team Description 08/24/2025 1:30 PM EDT Ancillary Procedure [facility] [address] [phone] Varicose veins of lower extremity with pain, right 08/23/2025 Results Follow-Up Vascular Surgery [address] [place] [address] Roxy Landry PA 08/20/2025 7:45 AM EDT Ancillary Procedure [facility] [address] [phone] ESRD (end stage renal disease) ([facility] V24, [facility] V28); Pre-op examination 06/18/2025 3:30 PM EDT Office Visit Vascular Surgery [facility] 300 [facility] [address] [place] [address] Abe Flanagan MD Varicose veins of lower extremity with pain, right (Primary Dx); ESRD (end stage renal disease) ([facility] V24, [facility] V28); Pre-op examination 06/11/2025 2:45 PM EDT Office Visit Adult Medicine [address] [phone] Roly Curtis MD Type 2 diabetes mellitus with microalbuminuria, without long-term current use of insulin ([facility] V24, [facility] V28) (Primary Dx); Primary hypertension; Mixed hyperlipidemia; Vertebro basilar insufficiency; Bilateral carotid artery stenosis; Stage 4 chronic kidney disease ([facility] V24, [facility] V28); Anemia of chronic disease; Crohn's disease of small intestine without complication ([facility] V24, [facility] V28) 06/11/2025 7:45 AM EDT Ancillary Procedure [facility] - [address] [facility] [address] [place] [address] Bilateral carotid artery stenosis from [...] HTN (hypertension) DM2 (diabetes mellitus, type 2) ([facility] V24, CM S/[facility] V28) CKD stage 4 due to type 2 diabetes mellitus ([facility] V24, [facility] V28) Crohn's colitis ([facility] V24, [facility] V28) Hyperlipidemia Carotid stenosis Family [...] PM EST Office Visit Vascular Surgery - [place] [address] [place] [phone] Abe Flanagan MD [address] [place] [phone] 10/15/2025 2:30 PM EST Office Visit Adult Medicine [address] [phone] Roly Curtis MD [address] [place] [address] Health Maintenance Due Date Last Done Comments [...] AM EDT ESRD (end stage renal disease) ([facility] V24, CMS/[facility] V28) Pre-op examination CBC WITH AUTO DIFFERENTIAL Routine 06/12/2025 8:33 AM EDT Anemia of chronic disease HEMOGLOBIN A1C Routine 06/12/2025 8:33 AM EDT Type 2 diabetes mellitus with microalbuminuria, without long-term current use of insulin (CMS/HCC V24, CMS/HCC V28) BASIC METABOLIC PANEL Routine 06/12/2025 8:33 AM EDT Type 2 diabetes mellitus with microalbuminuria, without long-term current use of insulin (CMS/HCC V24, CMS/HCC V28) Primary hypertension Stage 4 chronic kidney disease (CMS/HCC V24, CMS/HCC V28) CBC AND DIFFERENTIAL Routine 06/12/2025 8:33 AM EDT Anemia of chronic disease VAS US DUPLEX CAROTID BILATERAL Routine 06/11/2025 8:06 AM EDT Bilateral carotid artery stenosis MICROALBUMIN CREATININE URINE RATIO Routine 01/16/2025 7:57 AM EST Type 2 diabetes mellitus with microalbuminuria, without long-term current use of insulin ([facility] V24, [facility] V28) LIPID PANEL WITH REFLEX TO DIRECT LDL Routine 01/16/2025 7:57 AM EST Mixed hyperlipidemia COLONOSCOPY Routine 12/12/2024 11:03 AM EST HM DIABETES EYE EXAM Routine 06/09/2024 HM STOOL BASED TEST Routine 02/11/2024 HM ABDOMINAL AORTIC ANEURYSM SCRREN Routine 10/27/2023 [...] left forearm cephalic vein was not visualized. Manager Union Details A krishnamurthy scale, color and doppler analysis ultrasound was performed. During the study longitudinal and transverse views were obtained. Pulsed wave doppler was performed. us Abe Flanagan MD CV VASCULAR PROCEDURES Final Re sult * (ABNORMAL) CBC auto differential (06/12/2025 8:33 AM EDT) WBC 8.2 4.8 - 10.8 K/mcL LAB HEMETOLOGY METHOD 06/12/2025 10:48 AM [facility] RBC 3.20(L) 4.50 - 5.50 M/mcL LAB HEMETOLOGY METHOD 06/12/2025 10:48 AM [facility] Hemoglobin 10.8(L) 13.5 - 17.5 g/dL LAB HEMETOLOGY METHOD 06/12/2025 10:48 AM [facility] Hematocrit 32.8(L) 42.0 - 54.0 % LAB HEMETOLOGY METHOD 06/12/2025 10:48 AM [facility] MCV 101.9(H) 79.0 - 98.0 FL LAB HEMETOLOGY METHOD 06/12/2025 10:48 AM [facility] MCH 33.5(H) 27.0 - 32.0 pcg LAB HEMETOLOGY METHOD 06/12/2025 10:48 AM [facility] MCHC 32.9 32.0 - 37.0 g/dL LAB HEMETOLOGY METHOD 06/12/2025 10:48 AM [facility] RDW 15.8(H) 11.0 - 15.0 % LAB HEMETOLOGY METHOD 06/12/2025 10:48 AM [facility] Platelets 279 130 - 400 K/mcL LAB HEMETOLOGY METHOD 06/12/2025 10:48 AM [facility] MPV 11.2(H) 7.0 - 11.0 FL LAB HEMETOLOGY METHOD 06/12/2025 10:48 AM [facility] NRBC 0.0 <1.0 % LAB HEMETOLOGY METHOD 06/12/2025 10:48 AM [facility] NRBC Absolute 0.00 <0.10 K/mcL LAB HEMETOLOGY METHOD 06/12/2025 10:48 AM [facility] Neutrophils Relative 62.6 % LAB HEMETOLOGY METHOD 06/12/2025 10:48 AM [facility] Lymphocytes Relative 18.4 % LAB HEMETOLOGY METHOD 06/12/2025 10:48 AM [facility] Monocytes Relative 10.4 % LAB HEMETOLOGY METHOD 06/12/2025 10:48 AM [facility] Eosinophils Relative 6.8 % LAB HEMETOLOGY METHOD 06/12/2025 10:48 AM [facility] Basophils Relative 0.9 % LAB HEMETOLOGY METHOD 06/12/2025 10:48 AM [facility] Immature Granulocytes Relative 0.9 % LAB HEMETOLOGY METHOD 06/12/2025 10:48 AM [facility] Neutrophils Absolute 5.15 1.50 - 7.00 K/mcL LAB HEMETOLOGY METHOD 06/12/2025 10:48 AM [facility] Lymphocytes Absolute 1.51 1.00 - 5.00 K/mcL LAB HEMETOLOGY METHOD 06/12/2025 10:48 AM EDT [facility] Monocytes Absolute 0.85 0.20 - 1.00 K/[facility] LAB HEMETOLOGY METHOD 06/12/2025 10:48 AM EDT [facility] Eosinophils Absolute 0.56(H) 0.00 - 0.50 K/[facility] LAB HEMETOLOGY METHOD 06/12/2025 10:48 AM EDT [facility] Basophils Absolute 0.07 0.00 - 0.20 K/[facility] HEMETOLOGY METHOD 06/12/2025 10:48 AM EDT [facility] Immature Granulocytes Absolute 0.07(H) 0.00 - 0.03 K/[facility] HEMETOLOGY METHOD 06/12/2025 10:48 AM EDT [facility] Blood Venous blood specimen / Unknown Venipuncture / Unknown 06/12/2025 8:33 AM EDT 06/12/2025 8:33 AM EDT Roly Curtis MD LAB BLOOD ORDERABLES Final Result [facility] [address] [place] [address], * (ABNORMAL) Hemoglobin A1c (06/12/2025 8:33 AM EDT) Hemoglobin A1C 7.6(H) <6.5 % LAB CHEMISTRY METHOD 06/12/2025 1:05 PM EDT [facility] Mean Bld Glu Estim. 171 mg/dL LAB CHEMISTRY METHOD 06/12/2025 1:05 PM EDT [facility] Blood Venous blood specimen / Unknown Venipuncture / Unknown 06/12/2025 8:33 AM EDT 06/12/2025 8:33 AM EDT Roly Curtis MD LAB BLOOD ORDERABLES Final Result [facility] [address] [place] [address], * (ABNORMAL) Basic metabolic panel (06/12/2025 8:33 AM EDT) Sodium 134 133 - 145 mmol/L LAB CHEMISTRY METHOD 06/12/2025 1:52 PM EDT [facility] Potassium 5.3 3.5 - 5.5 mmol/L LAB CHEMISTRY METHOD 06/12/2025 1:52 PM [facility] Chloride 109 96 - 110 mmol/L LAB CHEMISTRY METHOD 06/12/2025 1:52 PM [facility] CO2 20(L) 21 - 32 mmol/L LAB CHEMISTRY METHOD 06/12/2025 1:52 PM [facility] Anion Gap 5 3 - 11 LAB CHEMISTRY METHOD 06/12/2025 1:52 PM [facility] Glucose 156(H) 70 - 100 mg/dL LAB CHEMISTRY METHOD 06/12/2025 1:52 PM [facility] BUN 66(H) 5 - 25 mg/dL LAB CHEMISTRY METHOD 06/12/2025 1:52 PM [facility] Creatinine 3.52(H) 0.70 - 1.30 mg/dL LAB CHEMISTRY METHOD 06/12/2025 1:52 PM [facility] eGFR 17(L) >=60 mL/min/1. 73m2 LAB CHEMISTRY METHOD 06/12/2025 1:52 PM [facility] Comment:Calculation based on the Chronic Kidney Disease Epidemiology Collaboration (CKD-EPI) equation refit without adjustment for race. BUN/Creatinine Ratio 18.8 LAB CHEMISTRY METHOD 06/12/2025 1:52 PM [facility] Calcium 8.6 8.5 - 10.5 mg/dL LAB CHEMISTRY METHOD 06/12/2025 1:52 PM EDT [facility] Blood Venous blood specimen / Unknown Venipuncture / Unknown 06/12/2025 8:33 AM EDT 06/12/2025 8:33 AM EDT us Roly Curtis MD LAB BLOOD ORDERABLES Final Result [facility] [address] [place] [address], [place] [phone] * Vascular US duplex carotid bilateral (06/11/2025 [...] waveforms are triphasic. Vertebral flow is antegrade. Manager Union Details A krishnamurthy scale, color and doppler analysis ultrasound was performed. During the study longitudinal and transverse views were obtained. Continuous wave doppler and pulsed wave doppler was performed. Overall the study quality was good. Pennie FISHER CV VASCULAR PROCEDURES Final Result * (ABNORMAL) Lipid panel with reflex to direct LDL (01/16/2025 7:57 AM EST) Cholesterol 125 0 - 200 mg/dL LAB CHEMISTRY METHOD 01/16/2025 10:32 AM EST [facility] Triglycerides 253(H) 0 - 150 mg/dL LAB CHEMISTRY METHOD 01/16/2025 10:32 AM [facility] HDL 33(L) >=40 mg/dL LAB CHEMISTRY METHOD 01/16/2025 10:32 AM [facility] LDL Calculated 41 0 - 100 mg/dL LAB CHEMISTRY METHOD 01/16/2025 10:32 AM [facility] VLDL Cholesterol Brooks 50.6 mg/dL LAB CHEMISTRY METHOD 01/16/2025 10:32 AM [facility] Non HDL Chol. (LDL+VLDL) 92 <145 mg/dL LAB CHEMISTRY METHOD 01/16/2025 10:32 AM [facility] Chol/HDL Ratio 3.8 0.0 - 4.4 LAB CHEMISTRY METHOD 01/16/2025 10:32 AM [facility] Blood Venous blood specimen / Unknown Venipuncture / Unknown 01/16/2025 7:57 AM EST 01/16/2025 7:57 AM EST Roly Curtis MD LAB BLOOD ORDERABLES Final Result [facility] [address] [place] [address], * (ABNORMAL) Microalbumin creatinine urine ratio (01/16/2025 7:57 AM EST) Creatinine, Urine 193.0 mg/dL LAB CHEMISTRY METHOD 01/16/2025 11:08 AM EST [facility] Microalb, Ur 1,580.0(H ) 0.0 - 29.0 mg/L LAB CHEMISTRY METHOD 01/16/2025 11:08 AM EST [facility] Microalb/Crea t Ratio 819(H) <30 mg/g creat LAB CHEMISTRY METHOD 01/16/2025 11:08 AM EST [facility] Urine Urine specimen obtained by clean catch procedure / Unknown Non-blood Collection / Unknown 01/16/2025 7:57 AM EST 01/16/2025 7:57 AM EST Roly Curtis MD LAB URINE ORDERABLES Final Result [facility] ([facility]) [facility] [address] [place] [address], [place] [phone] * COLONOSCOPY (12/12/2024 11:03 AM EST) Anatomical Region Laterality Modality Endoscopy Historical Provider GI~PROCEDURE ORDERABLES F inal Result * Diabetes Eye Exam (06/09/2024) [facility] Diabetes: Annual Retina Eye Exam Abstracted Result [facility] Historical Provider HEALTH MAINTENANCE Final Result * Stool Based Tests (FOBT/FIT) (02/11/2024) [facility] Colorectal Cancer Screening: Stool Based Tests Negative, Abstracted Historical Provider HEALTH MAINTENANCE Final Result * Abdominal Aortic Aneurysm Screen (10/27/2023) [facility] Abdominal Aortic Aneurysm (AAA) Screening Abstracted Anatomical Region Laterality Modality Other Historical Provider HEALTH MAINTENANCE Final Result from Last 3 Months or Most Recently Relevant to Health Maintenance Insurance [employer] MEDICARE Advance Directives Documents on File Type Date Recorded Patient Communications Electrician Supervisor Expl anation Health Care Decision (hx) 02/28/2015 [...] (hx) 02/28/2015 AD GALVAN DIRECTIVE Care Teams Maritime Officer Relationship Specialty Start Date End Date Roly Curtis MD [address] [place] [phone] PCP - General Internal Medicine 11/23/24
--- OUTSIDE RECORDS SUMMARY | 2025-08-31 11:32 | XMS_ITS | Clinical Summary ---
Author Organization [facility] Address [address] [place] [address] Phone Care Team Providers Care Health Information Technician Name Role Phone Unavailable Primary Care Provider [...] It is not the complete legal health record.[facility]
--- OUTSIDE RECORDS SUMMARY | 2025-08-31 11:32 | XMS_ITS | Clinical Summary ---
Author Organization [facility] Address [address] [address] Care Team Providers Care Pollution Control Chemist Name Role Phone Roly Curtis MD Primary [...] 60 Units 04/01/2023 Active ergocalciferol 1.25 MG (17402 UT) capsule Take 50,000 Units by mouth [...] Due Date Last Done Comments Pneumococcal Vaccine: 50+ Ye ars (1 of 2 - PCV) 1969 Colorectal Cancer Screening: Annual FOBT 1998 Colorectal Cancer Screening: Colonoscopy 1998 Colorectal Cancer Screening: Sigmoidoscopy 1998 Diabetes: Hemoglobin A1C 12/15/2020 04/03/2020 Diabetes: Ophthalmology Exam 12/15/2020 Diabetes: Pedal Pulse Checked 12/15/2020 Diabetes: Sensory Foot Exam 12/15/2020 Diabetes: Visual Foot Exam 12/15/2020 Influenza Vaccine (#1) 2025 Hepatitis B Vaccine Aged Out No longe [...] for diagnosis of diabetes for children. 04/03/2020 us Myron Gallagher MD LAB BLOOD ORDERABLES Final Result [facility] from Last 3 Months or Most Recently Relevant to Health Maintenance Insurance [employer] Care Teams Pollution Control Chemist Relationship Specialty Start Date End Date Roly Curtis MD [address] [place] [phone] PCP - [facility] 04/13/23
--- OUTSIDE RECORDS SUMMARY | 2025-08-31 11:32 | XMS_ITS | Encounter Summary ---
Author Organization [facility] Address [address] [place] [address] Care Team Providers Care Construction Area Manager Name Role Phone Roly Curtis MD Primary Care Provider [phone] Encounter Details Date Type Department Care Team (Late Contact Info) Description 08/23/2025 Results Follow-Up Vascular Surgery [facility] [address] [place] [phone] Roxy Landry PA [address] [facility] [address] [place] [address] Social History Tobacco Use Types Packs/Day Years [...] 1:00 PM EST Office Visit Vascular Surgery [facility] [address] [place] [phone] Abe Flanagan MD [address] [place] [phone] 10/15/2025 2:30 PM EST Office Visit Adult [address] [phone] Roly Curtis MD [address] [place], [place] documented as of this encounter Visit Diagnoses Not on filedocumented in this encounter Care Teams Construction Area Manager Relationship Specialty Start Date End Date Roly Curtis MD [address] [place] [address] PCP - General Internal Medicine 11/23/24 documented as of this encounter
== END 2025-08-31 10:19 | disposition home or self-care (01) ==
LOC: HO.HKA 09:54
PROVIDERS: PCP Internal Medicine; Visit Provider Internal Medicine Nephrology
DX: I12.9 Hypertensive chronic kidney disease with stage 1 through stage 4 chronic kidney disease, or unspecified chronic kidney disease (principal); N25.81 Secondary hyperparathyroidism of renal origin; E55.9 Vitamin D deficiency, unspecified; E11.22 Type 2 diabetes mellitus with diabetic chronic kidney disease; N18.4 Chronic kidney disease, stage 4 (severe); N17.9 Acute kidney failure, unspecified
CPT/HCPCS: 99214

== ENCOUNTER 2025-10-09 12:20 | Outpatient (REF) | payer OTHER, SELFPAY ==
[2025-10-09 14:10] LABS: Anion Gap 12 (12-20); Blood Urea Nitrogen 43 mg/dL (9-16); Calcium 9.1 mg/dL (8.4-10.2); Carbon Dioxide 21 mmol/L (22-29); Chloride 107 mmol/L (96-108); Estimated Glomerular Filt Rate 19; Potassium 4.2 mmol/L (3.3-5.1); Sodium 136 mmol/L (135-145)
--- OUTSIDE RECORDS SUMMARY | 2025-10-09 15:59 | XMS_ITS | Clinical Summary ---
Author Organization [facility] Address [address] [place] [address] Care Team Providers Care Manager Medical Writing Name Role Phone Aileen Myron Primary Care Provider [phone] Allergies Active Allergy Reactions Criticality Noted Date [...] (1 - Tdap) 1969 Pneumococcal Vaccine: 50+ Years (1 of 2 - PCV) 1969 Zoster Vaccines (1 of 2) 1969 Annual Preventive Exam 08/13/2021 0, 04/03/2019, 03/07/2018 RSV Vaccine (SCDM) (1 - 1-do se 75+ series) 2024 Influenza Vaccine (#1) 2025 Colonoscopy 05/23/2029 05/23/2019 Colorectal Cancer Screening 05/23/2029 Hepatitis B Vaccines Aged Out No long er eligible based on patient's age to complete this topic Insurance [employer] Care Teams Manager Medical Writing Relationship Specialty Start Date End Date Myron Gallagher PCP - General 01/03/21
--- OUTSIDE RECORDS SUMMARY | 2025-10-09 15:59 | XMS_ITS | Encounter Summary ---
Author Organization [facility] Address [address] [place] [address] Care Team Providers Care Terrazzo Worker Apprentice Name Role Phone Roly Curtis MD Primary Care Provider [phone] Encounter Details Date Type Department Care Team ([facility] Contact Info) Description 08/23/2025 Results Follow-Up Vascular Surgery - [place] [address] [place] [phone] Roxy Landry PA [address] [place] [phone] Social History Tobacco Use Types Packs/Day Years [...] Department Care Team (Late Contact Info) Description 10/15/2025 2:30 PM EST Office Visit Adult Medicine [address] [phone] Roly Curtis MD [address] [place] [address] 12/26/2025 8:40 AM EST Office Visit Gastroenterology - [address] [place] [address] Keven Amin MD [address] [facility] [place] [address] 09/23/2026 9:00 AM EST Office Visit Vascular Surgery - [place] [address] [place] [phone] Abe Flanagan MD [address] [place] [phone] documented as of this encounter Visit Diagnoses Not on filedocumented in this encounter Care Teams Terrazzo Worker Apprentice Relationship Specialty Start Date End Date Roly Curtis MD [address] [place] [phone] PCP - General Internal Medicine 11/23/24 documented as of this encounter
--- OUTSIDE RECORDS SUMMARY | 2025-10-09 15:59 | XMS_ITS | Clinical Summary ---
Author Organization [facility] Address [address] [place] [phone] Phone Care Team Providers Care Shot Dropper Name Role Phone Unavailable Primary Care Provider [...] It is not the complete legal health record.[facility]
--- OUTSIDE RECORDS SUMMARY | 2025-10-09 16:00 | XMS_ITS | Clinical Summary ---
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 Chronic kidney disease, stage 4 (severe) 021 Crohn's disease 01/07/2021 Hyperlipidemia 01/07/2021 Hypertensive disorder 01/07/2021 Type 2 diabetes mellitus 01/07/2021 Social History Tobacco Use Types Packs/Day Years Used Date Smoking Tobacco: Former Cigarettes 0 Q uit: 11/15/1992 Smokeless Tobacco: Former Alcohol [...] Date Last Done Comments Pneumococcal Vaccine: 50+ Years (1 of 2 - PCV) 1968 Colorectal Cancer Screening: Annual FOBT 1998 Colorectal Cancer Screening: Colonoscopy 1998 Colorectal Cancer Screening: Sigmoidoscopy 1998 Diabetes: Ophthalmology Exam 12/15/2020 Diabetes: Pedal Pulse Checked 12/15/2020 Diabetes: Sensory Foot Exam 12/15/2020 Diabetes: Visual Foot Exam 12/15/2020 Influenza Vaccine (#1) 2025 08/12/2023 Diabetes: Hemoglobin A1C 09/12/2025 025, 06/12/2025, 01/16/2025, Additional history exists Hepatitis B Vaccine Aged Out No longe [...] Most Recently Relevant to Health Maintenance Insurance Only-apartmentsna Only-apartmentsna Care Teams Auto Damage Trainee Relationship Specialty Start Date End Date Roly Curtis MD [address] [place] [phone] PCP - [facility] 04/13/23
--- OUTSIDE RECORDS SUMMARY | 2025-10-09 16:00 | XMS_ITS | Patient Health Record ---
Author Organization [facility] Address [address] [facility] [place] [address] Care Team Providers Care Social Worker Aide Name Role Phone Aileen ARREOLA, Myron Primary Care Provider Melo Chaney Unavailable [phone] Allergies Allergen (clinical drug ingredient) Drug/Non Drug [...] Status W/U Status Risk Notes Problem Bursitis (08328534) Bursitis (727.3) Active confirmed Problem Calcaneal spur (68948056) Calcaneal spur (726.73) Active confirmed Problem Type II diabetes mellitus without complication (707884126) Diabetic - NIDDM (250.00) Active confirmed Problem Myositis (86358729) Myositis (729.1) Active confirmed Problem Pain in limb (82883649) Pain in Limb (729.5) Active confirmed Problem Plantar fasciitis (558873926) Plantar Fasciitis (728.71) Active confirmed Plan Of Treatment Pending Test Test Name Order Date X ray : Foot, left 3V 01/01/2012 Insurance Providers Payer Name Payer Address Payer Phone Subscriber Number Group Number Insured Name Patient Relationship to Insured Coverage Start Date Coverage End Date [facility] [employer] Others [address] [place] [address] [id number] Prashant Silva Self - patient is the insured Medical (General) History Medical History History ICD Code Arthritis diabetic crohns disease hypertension kidney disease measles mumps chicken pox Surgical History Surgery Date(Month/Year) discectomy 1979 back surgery 1979
--- OUTSIDE RECORDS SUMMARY | 2025-10-09 16:00 | XMS_ITS | Clinical Summary ---
Author Organization [facility] [address] [place] [address] [place] [phone] Phone Care Team Providers Care Energy Efficiency Finance Manager Name Role Phone Roly Curtis MD Primary Care Provider [phone] Allergies Active Allergy Reactions Criticality Noted Date [...] day. 90 tablet 1 01/12/20 25 Active Additional Information Patient not taking.Reported on 09/21/2025 folic acid (FOLVITE) 1 mg tablet TAKE [...] dulaglutide (Trulicity) 3 mg/0.5 mL pen injector injectionIndicat ions:Type 2 diabetes mellitus with microalbuminuria , without long-term current use of insulin ([facility] V24, [facility] V28) Inject 0.5 mL (3 mg total) [...] day. 90 each 1 06/12/20 25 Active lisinopriL (PRINIVIL,ZESTRI L) 10 mg tablet TAKE 1 TABLET BY MOUTH AT BEDTIME 90 tablet 3 08/15/20 25 Active Additional Information Patient not taking.Reported on 09/21/2025 ZoweeTVTouch Ultra Test test strip USE TO CHECK BLOOD SUGAR 3 TIMES DAILY 100 strip 5 08/30/20 25 Active azaTHIOprine (IMURAN) 50 mg tabletIndication s:Crohn's disease of colon without complication ([facility] V24, [facility] V28) Take 3 tablets (150 mg total) by mouth 1 (one) time each day. 270 each 1 09/24/20 25 Active azaTHIOprine (IMURAN) 50 mg tabletIndication s:Crohn's disease of colon without complication ([facility] V24, [facility] V28) Take 3 tablets (150 mg total) by mouth 1 (one) time each day. 270 each 08/02/20 25 025 Discontin ued(Reord er) Active Problems Problem Noted Date Diagnosed Date Anemia of chronic disease 10/11/2023 Vertebro basilar insufficiency 07/02/2023 Bilateral carotid artery stenosis 07/02/2023 Cervical spondylosis with radiculopathy 06/30/20 23 Syncope 06/04/2023 Stage 4 chronic kidney disease ([facility] V24, [facility] V28) 05/17/2023 Type 2 diabetes mellitus wit h microalbuminuria, without long-term current use of insulin ([facility] V24, [facility] V28) 03/24/2023 Primary hypertension 03/24/2023 Mixed hyperlipidemia 03/24/2023 Crohn's disease of small int estine without complication ([facility] V24, [facility] V28) 03/24/2023 Peripheral neuropathy 03/24/2023 Osteoarthritis 03/24/2023 Regional enteritis ([facility] V24, [facility] V28) Encounters Date Type Department Care Team Description 09/21/2025 1:00 PM EST Office Visit Vascular Surgery - [place] [address] [facility] [address] [place] [phone] Abe Flanagan MD Stage 4 chronic kidney disease ([facility] V24, [facility] V28) (Primary Dx); Stenosis of carotid artery, unspecified laterality; Peripheral venous insufficiency 09/20/2025 Telephone Gastroenterology - [address] [facility] [address] [facility] [address] [place] [phone] Keven Amin MD 08/24/2025 1:30 PM EDT Ancillary Procedure [facility] [address] [facility] [address] [place] [phone] Varicose veins of lower extremity with pain, right 08/23/2025 Results Follow-Up Vascular Surgery - [place] [address] [facility] [address] [place] [phone] Roxy Landry PA 08/20/2025 7:45 AM EDT Ancillary Procedure [facility] [address] [facility] [address] [place] [phone] ESRD (end stage renal disease) ([facility] V24, [facility] V28); Pre-op examination from Last 3 Months Immunizations Immunization Administration Dates Next Due COVID-19 (Moderna/Spikevax) 12yo and older 07/17/2024 Influenza Quadravalent, 0.5m l (Fluad) 65yo and older 07/30/2023,09/03/2021 Influenza Quadravalent, 0.5m l (Fluzone High-dose) 65yo and older 07/30/2023,08/13/2022,09/03/2021 Influenza trivalent, 0.5mL ( Fluad) 65yo and older 09/10/2025,08/13/2022 Influenza, Unspecified 08/12/2023 Moderna (age 6mo & older) Bi valent, COVID-19, 0.5 mL or 0.25 mL dosage 08/13/2022 Moderna Covid-19 Bivalent, O riginal + Ba.1 (Non-US Tradename Spikevax Bivalent) 08/13/2022 Moderna SARS-CoV-2 COVID-19, mRNA, LNP-S, preservative free 08/13/2022,03/24/2022,09/09/2021,2020,02/18/2021 Pfizer (ages 12 & older) Biv alent, COVID-19 08/13/2022 Pneumococcal conjugate 20 va lent (Prevnar 20, PCV 20) 2mo and older 10/11/2023 RSV, bivalent, protein subun it RSVpreF, 0.5mL, Preservative Free (Arexvy) 50yo and older 10/08/2024 SARS-COV-2 (COVID-19) Vaccin e, Unspecified 07/17/2024 Tdap Tetanus diptheria acell ular pertussis (Boostrix; Adacel) 7yo and older 07/10/2024 Zoster recombinant (Shingrix ) 19yo and older 10/08/2024,07/10/2024 Surgical History Surgery Date Site/Laterality Comments CERVICAL FUSION COLONOSCOPY Medical History Medical History Date Comments HTN (hypertension) DM2 (diabetes mellitus, type 2) ([facility] V24, [facility] V28) CKD stage 4 due to type 2 diabetes mellitus ([facility] V24, [facility] V28) Crohn's colitis ([facility] V24, [facility] V28) Hyperlipidemia Carotid stenosis Family History Medical [...] Sign Reading Time Taken Comments Blood Pressure 136/70 09/21/2025 1:05 PM EST Pulse 71 09/21/2025 1:05 PM EST Temperature 35.9 C (96.6 F) 06/11/2025 2:38 PM EDT Respiratory Rate 16 09/21/2025 1:05 PM EST Oxygen Saturation - - Inhaled Oxygen Concentration - - Weight 100 kg (221 lb) 09/21/2025 1:05 PM EST Height 180.3 cm (5' 11 ) 09/21/2025 1:05 PM EST Body Mass Index 30.82 09/21/2025 1:05 PM EST Plan of Treatment Upcoming Encounters Date Type Department Care Team (Late st Contact Info) Description 10/15/2025 2:30 PM EST Office Visit Adult Medicine [address] [phone] Roly Curtis MD [address] [place], [place] 12/26/2025 8:40 AM EST Office Visit Gastroenterology - [address] [facility] [address] [facility] [address] [place] [phone] Keven Amin MD [address] [facility] [address] [place] [address] 09/23/2026 9:00 AM EST Office Visit Vascular Surgery - [place] [address] [place] [phone] Abe Flanagan MD [address] [place] [phone] Health Maintenance Due Date Last Done Comments Diabetes: Annual Foot Exam 1960 Falls Risk Assessment 10/18/2022 Hepatitis C Screening 10/18/2022 Medicare Annual Wellness Visit 10/18/2022 Social Influencers of Health Screening 10/18/2022 Depression Screening 11/15/2024 Diabetes: Blood Sugar Control Test (HGBA1C) 12/13/2025 06/12/2025, 01/16/2025, 06/28/2024, Additional history exists Diabetes: Annual Urine Albumin-Creatinine Ratio (uACR) 01/16/2026 01/16/2025, 01/14/2024 COVID-19 Vaccine (8 - Moderna risk season) 2026 09/10/2025, 07/17/2024, 07/17/2024, Additional history exists Diabetes: Annual GFR (Glomerular Filtration Rate) 06/12/2026 06/12/2025, 12/12/2024, 06/28/2024 Hypertension/CHF/CAD Annual BMP Blood Test 06/12/2026 06/12/2025, 12/12/2024, 06/28/2024 Diabetes: Annual Retina Eye Exam 10/05/2026 10/05/2025, 06/09/2024 Cholesterol Screening (Lipid Panel) 01/16/2030 01/16/2025, 01/14/2024 DTaP,Tdap,and Td Vaccines (2 - Td or Tdap) 07/10/2034 07/10/2024 Colorectal Cancer Screening: Colonoscopy 12/12/2034 12/12/2024 Pneumococcal Vaccine: 50+ Years Completed 10/11/2023 Abdominal Aortic Aneurysm (AAA) Screen Completed 10/27/2023 Colorectal Cancer Screening: Stool Based Tests (FOBT/FIT) Discontinued 02/11/2024 RSV Immunization Adult Patients Completed 10/08/2024 Zoster Vaccines Completed 10/08/2024, 07/10/2024 Influenza Vaccine Completed 09/10/2025, , 07/30/2023, Additional history exists HIB Vaccines Aged Out No longer eligi [...] Procedure Name Priority Date/Time Associated Diagnosis Comments EXTERNAL DIABETIC RETINA EYE EXAM Routine 10/05/2025 2:41 PM EST VAS US DUPLEX LOWER EXT VENOUS INSUFFICIENCY RIGHT Routine 08/24/2025 1:34 PM EDT Varicose veins of lower extremity with pain, right VAS US VEIN MAP HEMODIALYSIS ACCESS ARM BILATERAL Routine 08/20/2025 7:58 AM EDT ESRD (end stage renal disease) ([facility] V24, [facility] V28) Pre-op examination BASIC METABOLIC PANEL Routine 06/12/2025 8:33 AM EDT Type 2 diabetes mellitus with microalbuminuria, without long-term current use of insulin (CMS/HCC V24, CMS/HCC V28) Primary hypertension Stage 4 chronic kidney disease (CMS/HCC V24, CMS/HCC V28) HEMOGLOBIN A1C Routine 06/12/2025 8:33 AM EDT Type 2 diabetes mellitus with microalbuminuria, without long-term current use of insulin ([facility] V24, CMS/HCC V28) MICROALBUMIN CREATININE URINE RATIO Routine 01/16/2025 7:57 AM EST Type 2 diabetes mellitus with microalbuminuria, without long-term current use of insulin ([facility] V24, CMS/HCC V28) LIPID PANEL WITH REFLEX TO DIRECT LDL Routine 01/16/2025 7:57 AM EST Mixed hyperlipidemia COLONOSCOPY Routine 12/12/2024 11:03 AM EST HM STOOL BASED TEST Routine 02/11/2024 HM ABDOMINAL AORTIC ANEURYSM SCRREN Routine 10/27/2023 from Last 3 Months or Most Recently Relevant to Health Maintenance Results * External Diabetic Retina Eye Exam Report (10/05/2025 2:41 PM EST) Anatomical Region Laterality Modality Ultrasound us Historical Provider MD VILLAVICENCIO US PROCEDURES Final R esult * Vascular US duplex lower extremity venous [...] left forearm cephalic vein was not visualized. Special Tester Details A krishnamurthy scale, color and doppler analysis ultrasound was performed. During the study longitudinal and transverse views were obtained. Pulsed wave doppler was performed. Abe Flanagan MD CV VASCULAR PROCEDURES Final Re sult * (ABNORMAL) Hemoglobin A1c (06/12/2025 8:33 AM EDT) Pathologist [facility] Hemoglobin A1C 7.6(H) <6.5 % LAB CHEMISTRY METHOD 06/12/2025 1:[address] [facility] Mean Bld Glu Estim. 171 mg/dL LAB CHEMISTRY METHOD 06/12/2025 1:[address] [facility] Blood Venous blood specimen / Unknown Venipuncture / Unknown 06/12/2025 8:33 AM EDT 06/12/2025 8:33 AM EDT Roly Curtis MD LAB BLOOD ORDERABLES Final Result [facility] [address] [place] [address], * (ABNORMAL) Basic metabolic panel (06/12/2025 8:33 AM EDT) Pathologist [facility] Sodium 134 133 - 145 mmol/L LAB CHEMISTRY METHOD 06/12/2025 1:[address] [facility] Potassium 5.3 3.5 - 5.5 mmol/L LAB CHEMISTRY METHOD 06/12/2025 1:[address] [facility] Chloride 109 96 - 110 mmol/L LAB CHEMISTRY METHOD 06/12/2025 1:52 PM [facility] CO2 20(L) 21 - 32 mmol/L LAB CHEMISTRY METHOD 06/12/2025 1:52 PM [facility] Anion Gap 5 3 - 11 LAB CHEMISTRY METHOD 06/12/2025 1:52 PM [facility] Glucose 156(H) 70 - 100 mg/dL LAB CHEMISTRY METHOD 06/12/2025 1:52 PM [facility] BUN 66(H) 5 - 25 mg/dL LAB CHEMISTRY METHOD 06/12/2025 1:52 PM [facility] Creatinine 3.52(H) 0.70 - 1.30 mg/dL LAB CHEMISTRY METHOD 06/12/2025 1:52 PM [facility] eGFR 17(L) >=60 mL/min/1. 73m2 LAB CHEMISTRY METHOD 06/12/2025 1:52 PM [facility] Comment:Calculation based on the Chronic Kidney Disease Epidemiology Collaboration (CKD-EPI) equation refit without adjustment for race. BUN/Creatinine Ratio 18.8 LAB CHEMISTRY METHOD 06/12/2025 1:52 PM [facility] Calcium 8.6 8.5 - 10.5 mg/dL LAB CHEMISTRY METHOD 06/12/2025 1:52 PM [facility] Blood Venous blood specimen / Unknown Venipuncture / Unknown 06/12/2025 8:33 AM EDT 06/12/2025 8:33 AM EDT us Roly Curtis MD LAB BLOOD ORDERABLES Final Result [facility] [address] [place] [address], * (ABNORMAL) Lipid panel with reflex to direct LDL (01/16/2025 7:57 AM EST) Cholesterol 125 0 - 200 mg/dL LAB CHEMISTRY METHOD 01/16/2025 10:32 AM [facility] Triglycerides 253(H) 0 - 150 mg/dL LAB CHEMISTRY METHOD 01/16/2025 10:32 AM [facility] HDL 33(L) >=40 mg/dL LAB CHEMISTRY METHOD 01/16/2025 10:32 AM [facility] LDL Calculated 41 0 - 100 mg/dL LAB CHEMISTRY METHOD 01/16/2025 10:32 AM [facility] VLDL Cholesterol Brooks 50.6 mg/dL LAB CHEMISTRY METHOD 01/16/2025 10:32 AM [facility] Non HDL Chol. (LDL+VLDL) 92 <145 mg/dL LAB CHEMISTRY METHOD 01/16/2025 10:32 AM [facility] Chol/HDL Ratio 3.8 0.0 - 4.4 LAB CHEMISTRY METHOD 01/16/2025 10:32 AM [facility] Blood Venous blood specimen / Unknown Venipuncture / Unknown 01/16/2025 7:57 AM EST 01/16/2025 7:57 AM EST us Roly Curtis MD LAB BLOOD ORDERABLES Final Result [facility] [address] [place] [address], * (ABNORMAL) Microalbumin creatinine urine ratio (01/16/2025 7:57 AM EST) Creatinine, Urine 193.0 mg/dL LAB CHEMISTRY METHOD 01/16/2025 11:08 AM [facility] Microalb, Ur 1,580.0(H ) 0.0 - 29.0 mg/L LAB CHEMISTRY METHOD 01/16/2025 11:08 AM [facility] Microalb/Crea t Ratio 819(H) <30 mg/g creat LAB CHEMISTRY METHOD 01/16/2025 11:[address] [facility] Urine Urine specimen obtained by clean catch procedure / Unknown Non-blood Collection / Unknown 01/16/2025 7:57 AM EST 01/16/2025 7:57 AM EST Roly Curtis MD LAB URINE ORDERABLES Final Result [facility] [address] [place] [address], * COLONOSCOPY (12/12/2024 11:03 AM EST) Anatomical Region Laterality Modality Endoscopy Historical Provider GI~PROCEDURE ORDERABLES F inal Result * Stool Based Tests (FOBT/FIT) (02/11/2024) Colorectal Cancer Screening: Stool Based Tests Negative, Abstracted Historical Provider HEALTH MAINTENANCE Final Result * Abdominal Aortic Aneurysm Screen (10/27/2023) Abdominal Aortic Aneurysm (AAA) Screening Abstracted Anatomical Region Laterality Modality Other Historical Provider HEALTH MAINTENANCE Final Result from Last 3 Months or Most Recently Relevant to Health Maintenance Insurance [employer]IC[employer] Advance Directives Documents on File Type Date Recorded Patient Straight Knife Cutter Machine Expl anation Health Care Decision (hx) 02/28/2015 [...] (hx) 02/28/2015 AD GALVAN DIRECTIVE Care Teams Energy Efficiency Finance Manager Relationship Specialty Start Date End Date Roly Curtis MD [address] [place] [phone] PCP - General Internal Medicine 11/23/24
== END 2025-10-09 12:21 | disposition home or self-care (01) ==
LOC: HO.10HDL 12:20
PROVIDERS: Visit Provider Internal Medicine Nephrology
DX: N17.9 Acute kidney failure, unspecified (principal)
CPT/HCPCS: 36415; 80051; 82310; 82565; 84520

== ENCOUNTER 2025-10-17 11:50 | Outpatient (AMB) | payer OTHER, SELFPAY ==
--- NOTE | 2025-10-17 12:14 | HO.NEPHOV_ITS ---
Vital Signs 10/17/25 12:16 Height 5 ft 11 in Weight 223 lb BMI 31.1 BP 152/70 H Blood Pressure Location Rt brachial Position Sitting Pulse 98 Pulse Source Pulse Oximeter Pulse Oximetry (%) 97 Oxygen Delivery Method Room Air Intake Visit Reasons: 3 wks f/u w/ labs-Conf Sign Painter Helper Required: No Accompanied by: Self / Same As Patient Allergies aspirin (ASA) Allergy (Severe, Verified 10/17/25 12:16) CANNOT USE DUE TO CROHNS Penicillins (PENICILLINS) Allergy (Intermediate, Verified 10/17/25 12:16) VOMITING HPI Comments Details: Calos was seen in follow-up of his biopsy-proven diabetic chronic kidney disease stage IV. 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 His blood sugar is better control now. His blood pressure has been at goal. He is compliant with his medications. He denies chest pain, shortness of breath, proximal nocturnal dyspnea, orthopnea, pedal edema, hematuria, dysuria, frequency, night sweats, weight loss or orthostatic symptoms. He does not take any nonsteroidal anti-inflammatory medications. He feels well. His serum creatinine is marginally better. He is off HCTZ and ACEI . All other systems were reviewed and were negative [facility] Medical History (Updated 08/31/25 @ 10:13 by Pedro Callaway MD) Diabetes CKD (chronic kidney disease) Colitis Surgical History History of neck surgery Family History Mother Cancer Social History Alcohol intake: never Patient Tobacco Use Status: Former Tobacco user Review of Systems Const All systems reviewed & are unremarkable except as noted in HPI and below Physical Exam Vital Signs: Last Vital Signs Pulse 98 10/17/25 12:16 BP 152/70 H 10/17/25 12:16 Pulse Ox 97 10/17/25 12:16 Oxygen Delivery Method Room Air 10/17/25 12:16 BMI result Body Mass Index 31.1 Const General: comfortable and no acute distress Orientation/consciousness: patient oriented x3 HEENT Head: Yes normocephalic Mouth: Normal oral and palatal mucosa present Eyes EOM: EOMs intact bilaterally Neck Neck: Yes supple Resp Auscultation: clear to auscultation bilaterally Cardio Jugular venous distension: no JVD Rate: regular rate GI Palpation (GI): Soft to palpation Auscultation: normal bowel sounds General: Yes no CVA tenderness Back/Spine/Pelvis Back: no CVA tenderness Skin General skin exam: no rashes or lesions noted Neuro General: patient oriented x3 and moves all extremities Extrem General: Yes no pedal edema Results Reviewed Nephrology Results: Sodium, (135-145) 136 mmol/L 10/09/25 Potassium, (3.3-5.1) 4.2 mmol/L 10/09/25 Chloride, (96-108) 107 mmol/L 10/09/25 Carbon Dioxide, (22-29) 21 mmol/L L 10/09/25 BUN, (9-16) 43 mg/dL H 10/09/25 Creatinine, (0.5-1.4) 3.18 mg/dL H 10/09/25 Calcium, (8.4-10.2) 9.1 mg/dL 10/09/25 PTH Intact, (8.7-77.1) 366.9 pg/mL H 04/27/25 Assessment & Plan Assessment & Plan (1) Hypertension: Code(s): I10 - Essential (primary) hypertension Category: Medical Qualifiers: Hypertension type: primary hypertension Qualified Code(s): I10 - Essential (primary) hypertension (2) Secondary hyperparathyroidism (of renal origin): Code(s): N25.81 - Secondary hyperparathyroidism of renal origin Category: Medical (3) Vitamin D deficiency: Code(s): E55.9 - Vitamin D deficiency, unspecified Category: Medical (4) CKD stage 4 due to type 2 diabetes mellitus: Code(s): E11.22 - Type 2 diabetes mellitus with diabetic chronic kidney disease; N18.4 - Chronic kidney disease, stage 4 (severe) Category: Medical Plan Calos has 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 His serum creatinine has improved marginally after I held his ACEI. 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 His blood pressure is not better controlled & has been started on hydralazine. He has history of proteinuria. All his serology and immunology as a part of CKD workup had been negative in the past. His last documented GFR by 24 hour urine collection was close to 35 mL/minute. He can continue Jardiance 10 mg daily and Vitamin D 2000 U daily. He will be a candidate for activated Vitamin D soon. He maintains good hydration and avoid NSAIDs. Follow-up appointment given Orders: Orders Parathyroid Hormone Intact 2 Months E55.9 - Vitamin D deficiency, unspecified, I10 - Essential (primary) hypertension, N25.81 - Secondary hyperparathyroidism of renal origin Vitamin D 25-OH Total 2 Months E55.9 - Vitamin D deficiency, unspecified, I10 - Essential (primary) hypertension, N25.81 - Secondary hyperparathyroidism of renal origin Calcium 2 Months E55.9 - Vitamin D deficiency, unspecified, I10 - Essential (primary) hypertension, N25.81 - Secondary hyperparathyroidism of renal origin Electrolytes 2 Months E55.9 - Vitamin D deficiency, unspecified, I10 - Essential (primary) hypertension, N25.81 - Secondary hyperparathyroidism of renal origin Blood Urea Nitrogen 2 Months E55.9 - Vitamin D deficiency, unspecified, I10 - Essential (primary) hypertension, N25.81 - Secondary hyperparathyroidism of renal origin Creatinine 2 Months E55.9 - Vitamin D deficiency, unspecified, I10 - Essential (primary) hypertension, N25.81 - Secondary hyperparathyroidism of renal origin Coding Level of Care Code Est Pt Level 4 (68705) Diagnoses Primary hypertension I10 Hypertension type: primary hypertension Secondary hyperparathyroidism (of renal origin) N25.81 Vitamin D deficiency E55.9 CKD stage 4 due to type 2 diabetes mellitus E11.22; N18.4
[2025-10-17 12:16] VITALS: BP 152/70; PULSE 98; O2SAT 97; BMI 31.1
--- OUTSIDE RECORDS SUMMARY | 2025-10-17 14:16 | XMS_ITS | Clinical Summary ---
Author Organization [facility] Address [address] [place] [address] Care Team Providers Care Security Clerk Name Role Phone Aileen Myron Primary Care Provider [phone] Allergies Active Allergy Reactions Criticality Noted Date [...] complete this topic Insurance [employer] Care Teams Security Clerk Relationship Specialty Start Date End Date Myron Gallagher PCP - General 01/03/21
--- OUTSIDE RECORDS SUMMARY | 2025-10-17 14:16 | XMS_ITS | Patient Health Record ---
Author Organization [facility] Address [address] [facility] [place] [address] Care Team Providers Care Quarryman Name Role Phone Aileen ARREOLA, Myron Primary Care Provider Melo Chaney Unavailable [phone] Allergies Allergen (clinical drug ingredient) Drug/Non Drug [...] Status W/U Status Risk Notes Problem Bursitis (23805722) Bursitis (727.3) Active confirmed Problem Calcaneal spur (05208825) Calcaneal spur (726.73) Active confirmed Problem Type II diabetes mellitus without complication (803335350) Diabetic - NIDDM (250.00) Active confirmed Problem Myositis (02782263) Myositis (729.1) Active confirmed Problem Pain in limb (34469509) Pain in Limb (729.5) Active confirmed Problem Plantar fasciitis (995546167) Plantar Fasciitis (728.71) Active confirmed Plan Of Treatment Pending Test Test Name Order Date X ray : Foot, left 3V 01/01/2012 Insurance Providers Payer Name Payer Address Payer Phone Subscriber Number Group Number Insured Name Patient Relationship to Insured Coverage Start Date Coverage End Date [facility] All Others [address] [place] [address] [id number] Prashant Silva Self - patient is the insured Medical (General) History Medical History History ICD Code Arthritis diabetic crohns disease hypertension kidney disease measles mumps chicken pox Surgical History Surgery Date(Month/Year) discectomy 1979 back surgery 1979
--- OUTSIDE RECORDS SUMMARY | 2025-10-17 14:16 | XMS_ITS | Clinical Summary ---
Author Organization [facility] Address [address] [place] [phone] Phone Care Team Providers Care Exhaust Equipment Operator Name Role Phone Unavailable Primary Care Provider [...] It is not the complete legal health record.[facility]
== END 2025-10-17 12:39 | disposition home or self-care (01) ==
LOC: HO.HKA 11:50
PROVIDERS: PCP Internal Medicine; Visit Provider Internal Medicine Nephrology
DX: I12.9 Hypertensive chronic kidney disease with stage 1 through stage 4 chronic kidney disease, or unspecified chronic kidney disease (principal); N25.81 Secondary hyperparathyroidism of renal origin; E55.9 Vitamin D deficiency, unspecified; E11.22 Type 2 diabetes mellitus with diabetic chronic kidney disease; N18.4 Chronic kidney disease, stage 4 (severe)
CPT/HCPCS: 99214